=== PATIENT | female | born 1940 | race Caucasian/White ===

== ENCOUNTER → 2017-10-07 11:53 | Outpatient (CLI) | payer MEDICARE, SELFPAY ==
[2017-10-07 14:20] LABS: Color, Urine Yellow (Yellow); Glucose, Dipstick Normal (Normal); Ketone-Dipstick Negative (Negative); Leukocyte Esterase-Dipstick 25 /ul (Negative); Nitrite-Dipstick Negative (Negative); Occult Blood-Urine 10 /ul (Negative); Protein-Dipstick Negative (Negative); Urine Bilirubin Dipstick Negative (Negative); Urine Clarity Clear (Clear); Urine Urobilinogen Normal (Normal)
[2017-10-07 14:23] LABS: Hematocrit 40.7 % (37-47); Hemoglobin 14.1 g/dl (12.0-15.0); Mean Corp Hgb Conc 34.6 g/gl (32-36); Mean Corpuscular Hgb 31.6 pg (27.0-32.0); Mean Corpuscular Volume 91.3 fL (81-99); Mean Platelet Vol. 10.7 fl (6.2-12.0); Platelet Count 237 K/mm3 (150-450); RBC Distribution Width CV 12.6 % (11.6-14.6); RBC Distribution Width SD 41.1 fl (35.1-43.9); Red Blood Count 4.46 M/mm3 (4.2-5.4); White Blood Count 6.3 K/mm3 (4.4-11.0)
[2017-10-07 14:24] LABS: Scan Indicated on CBC? Y/N NO
[2017-10-07 14:32] LABS: Albumin, Serum 3.8 g/dL (3.2-5.0); BUN 17 mg/dL (7-18); BUN/Creat Ratio 20.5 RATIO (10-20); Calcium,Total 9.3 mg/dL (8.5-10.1); Chloride 103 mmol/L (98-107); Creatinine, Serum 0.83 mg/dL (0.55-1.02); EST Glomerular Filtration Rate 70 mL/min (>60); Est Glom Filt Rate - Afr Amer 85 mL/min (>60); Glucose 153 mg/dL (74-106); Potassium 4.4 mmol/L (3.5-5.1); Sodium Level 140 mmol/L (136-145)
[2017-10-07 14:46] LABS: Microalbumin,Random Urine 38.3 mg/L (NO RANGE EST.); Microalbumin:Creatinine Ratio 22.9 mg/g CRE (<30 mg/g CRE); Protein:Creat Ratio 90 mg/g CRE (0-200)
[2017-10-12 12:02] LABS: Aldosterone, Serum 2.6 ng/dL (0.0-30.0); Renin, Plasma 2.082 ng/mL/hr (0.167-5.380)
== END ==
PROVIDERS: Family Provider Internal Medicine; PCP Internal Medicine; Visit Provider Internal Medicine Nephrology
DX: I10 Essential (primary) hypertension (principal)
CPT/HCPCS: 36415; 80069; 81002; 82043; 82088; 82570; 84156; 84244; 85027

== ENCOUNTER 2020-10-28 09:30 | Outpatient (RCR) | payer MEDICARE, SELFPAY | END 2020-10-28 23:59 | LOC: IMMUN 09:30 | PROVIDERS: PCP Internal Medicine; Visit Provider Family Medicine | DX: Z23 Encounter for immunization (principal) | CPT/HCPCS: 0011A; 0012A ==

== ENCOUNTER 2021-06-23 18:56 | Observation (INO) | payer MEDICARE, SELFPAY ==
[2021-06-23] VITALS (8 sets, daily range): BP systolic 168–182; BP diastolic 59–72; PULSE 79–90; RESP 18–20; TEMP 36.3–37; O2SAT 94–98; BMI 34.4; BMI 33.5
--- NOTE | 2021-06-23 19:30 | EKG12_ITS ---
Test Reason : NEURO S/X Blood Pressure : / mmHG Vent. Rate : 082 BPM Atrial Rate : 082 BPM P-R Int : 182 ms QRS Dur : 080 ms QT Int : 400 ms P-R-T Axes : 057 -15 048 degrees QTc Int : 467 ms Normal sinus rhythm Nonspecific ST abnormality Abnormal ECG Confirmed by JANA MOJICA, ISAURO ([id number]), editorial writer MAYRA LE ([id number]) on 06/25/2021 8:57:32 AM Referred By: PL Confirmed By:ISAURO BATES MD
--- NOTE | 2021-06-23 19:30 | CT_ITS ---
We are attempting to reach an attending provider to discuss findings. An addendum with communication details will be sent when the communication is complete. STUDY: CT HEAD STROKE PROTOCOL W/O CONTRAST INJECTION REASON FOR EXAM: Female, 81 years old. Neuro deficit, acute, stroke suspected RADIATION DOSAGE (If Supplied By Facility): CTDIvol = ( ) mGy, DLP = ( 812.98 ) mGycm TECHNIQUE: Transaxial CT imaging of the brain was performed without administration of intravenous contrast material. Individualized dose optimization techniques were used for this CT. COMPARISON: No relevant priors. FINDINGS: Normal soft tissue structures. Normal calvarium. Calcification of cavernous carotids. Mild cortical atrophy and periventricular white matter ischemic changes. 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 Normal brainstem. Normal cerebellum. Empty sella deformity likely of no significance. There is no intracranial hemorrhage. There are no findings of an acute ischemic infarction. Normal visualized paranasal sinuses. CT/STROKE Brain/Head without Cont IMPRESSION: Mild atrophy and periventricular white matter ischemic changes. 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 Clinical correlation recommended MRI would be helpful for further assessment if clinically indicated Electronically Signed: Francisco Avelar MD at 19:58 EDT , Service support ,
--- NOTE | 2021-06-23 19:30 | RAD_ITS ---
STUDY: X-RAY CHEST REASON FOR EXAM: Female, 81 years old. Neuro deficit, acute, stroke suspected TECHNIQUE: AP portable COMPARISON: None. FINDINGS: Less than optimal inspiratory effort is seen in the lungs are clear. There is no demonstrated pleural abnormality. Heart is mildly enlarged although exaggerated by radiographic technique Normal mediastinum and marquez. Normal visualized pulmonary arteries. Normal visualized aortic arch and descending thoracic aorta. Normal visualized thoracic spine. Normal visualized ribs, clavicles, and shoulders. There is no demonstrated abnormality of the visualized soft tissue structures of the upper abdomen. RAD/Chest 1 View IMPRESSION: No acute cardiopulmonary pathology Electronically Signed: Francisco Avelar MD at 20:46 EDT , Service support ,
--- NOTE | 2021-06-23 19:32 | ED.VIS.STROK ---
HPI History of Present Illness Chief Complaint: Neuro S/Sx Informant: patient and family Narrative Narrative: Presents with neurologic symptoms. Her son saw her yesterday and she seemed normal. Patient does not know when the symptoms started. She does state that she has had some nausea and vomiting about 6 or 8 times today. But she has never had abdominal pain or hematemesis. This started early this morning. Last time she vomited was about 2-1/2 hours ago. She really does not have a any significant nausea now. She has noted no weakness. She has noted just some very slight dizziness or unsteadiness. She states is not spinning or vertigo. She can walk around but she just has to be careful but she does not have to hold onto anything. This is not normal for her but it was mild and she did not think anything of it. Her son came over to visit her this evening and when she opened the door he noticed that left side of her face seemed a little droopy. He also noticed that her speech seemed a little slurred although it is better now. She had not noticed any of this. Nothing makes her symptoms better or worse. She has never had stroke or dysrhythmia. [facility] Medical History Diabetes HTN (hypertension) Uterine cancer Home Medications amlodipine 10 mg PO DAILY 06/23/21 [History Last Taken Unknown] aspirin [Aspir-81] 81 mg PO DAILY 06/23/21 [History Last Taken Unknown] atorvastatin 40 mg PO DAILY 06/23/21 [History Last Taken Unknown] insulin detemir U-100 [Levemir FlexTouch U-100 Insuln] 55 unit SUBCUT DAILY 06/23/21 [History Last Taken Unknown] losartan 100 mg PO DAILY 06/23/21 [History Last Taken Unknown] metformin 1,000 mg PO TID 06/23/21 [History Last Taken Unknown] metoprolol tartrate 100 mg PO BID 06/23/21 [History Last Taken Unknown] Allergy/AdvReac Type Severity Reaction Status Date / Time Tetanus Vaccines and Toxoid Allergy Other Verified 06/23/21 18:57 Surgical History H/O total hysterectomy Social History Smoking Status: Never smoker ROS ROS ED Constitutional Constitutional ED: Denies fever(s) or subjective Eyes Eyes: Reports other Details: 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 ; Denies blurry vision, change in vision or diplopia ENT ENT ED: Denies rhinorrhea or sore throat Cardiovascular Cardiovascular: Denies chest pain or palpitations Respiratory/Chest Respiratory/Chest: Denies cough, dyspnea or sputum Gastrointestinal Gastrointestinal: Reports nausea and vomiting; Denies abdominal pain, constipation, diarrhea or melena Genitourinary Genitourinary ED: Denies hematuria Musculoskeletal Musculoskeletal: Denies arthralgias or myalgias Integumentary Denies rash Neurologic Neurologic: Reports weakness and other Details: See history of present illness. ; Denies headache(s) or paresthesias Psychiatric Psychiatric: Denies depression Endocrine Endocrinology: Denies polyuria Hematologic/Lymphatic Hematologic/Lymphatic: Denies easy bruising Allergic/Immunologic Allergic/Immunologic ED: Denies mouth swelling or urticaria EXAM Physical Exam Const Vital Signs: 06/23/21 18:57 06/23/21 19:32 06/23/21 20:03 Temperature 98.6 F Temperature Source Oral Pulse Rate 81 90 Respiratory Rate 18 18 Blood Pressure 177/72 H 180/67 H Blood Pressure Mean 107 104 Pulse Ox 98 98 95 Oxygen Delivery Method Room Air Room Air Room Air 06/23/21 21:00 06/23/21 22:00 Temperature Temperature Source Pulse Rate 79 84 Respiratory Rate 18 20 H Blood Pressure 168/59 H 182/70 H Blood Pressure Mean 95 107 Pulse Ox 95 Oxygen Delivery Method Room Air Positive well nourished and well developed General Appearance ED: well developed and NAD HEENT Reports moist mucous membranes atraumatic Nose: other Other Details: Patient does have subtle left-sided facial weakness. She can smile and close her eyes fully but there is some baseline left-sided weakness. There is some intermittent asymmetry related to her eyes but she has been blind in her right eye for a long time. Forehead does appear to be spared. Eyes Eyes Narrative: Extraocular muscles are intact. No visual field deficit to gross examination her left eye. Right eye is blind. Neck no lymphadenopathy, supple and no JVD Neck Narrative: No bruit heard. Chest Wall inspection of chest normal Resp normal respiratory effort and clear to auscultation bilaterally Auscultation: Negative for rales, rhonchi or wheezes Cardio no murmurs Rate: regular rate Rhythm: regular rhythm GI normal to inspection, nondistended, normoactive bowel sounds, soft to palpation and non-tender Back/Spine no CVA tenderness Extremity normal to inspection General Extremety ED: Negative for edema or tenderness General Extremity: Negative for edema Neuro oriented x3 and no sensory deficits noted Neuro Narrative: NIH is 1 for some subtle left-sided facial weakness. Sensorium / Orientation: alert, oriented to person, oriented to place and oriented to time Speech: speech normal Motor Exam: strength 5/5 throughout Skin Lesions: no lesions Rashes: no rashes STROKE Vital Signs/Narrative: Vital Signs Temp Pulse Resp BP Pulse Ox 06/23/21 22:00 84 20 H 182/70 H 06/23/21 21:00 79 18 168/59 H 95 06/23/21 20:03 90 18 180/67 H 95 06/23/21 19:32 98 06/23/21 18:57 98.6 F 81 18 177/72 H 98 NIHSS Initial: 1a Level of Consciousness: 0 1b LOC Questions (Score 2 if aphasic/stupor): 0 1c LOC Commands (Only score 1st attempt): 0 2 Best Gaze (If aphasic, use reflexive mvmts.): 0 3 Visual: 0 4 Facial Palsy: 1 5 Motor Arm Right (UN = amputation/fusion): 0 5 Motor Arm Left: 0 6 Motor Leg Right: 0 6 Motor Leg Left: 0 7 Limb ataxia (Only + if out of proportion): 0 8 Sensory (Aphasia/stupor=0 or 1, coma=2): 0 9 Best Language: 0 10 Dysarthria (mute, coma=2, intubated=UN): 0 11 Extinction and Inattention (only scored if +): 0 Total Score: 1 MDM MDM MDM Narrative Medical decision making narrative: Patient's blood work is overall unremarkable. CT shows some changes but they do not explain her symptoms. Her only symptoms are really left facial. 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 However, at this time her forehead appears to be spared. Because of this, she will be admitted for further work-up. MRI will be obtained. Case was discussed with hospitalist. Lab Data Attestation: I reviewed the patient's lab results. Labs: Laboratory Results - last 24 hr 06/23/21 06/23/21 06/23/21 19:16 19:16 19:16 WBC 7.6 RBC 4.31 Hgb 13.6 Hct 39.3 MCV 91.2 MCH 31.6 MCHC 34.6 RDW Std Deviation 41.3 RDW Coeff of Maribel 12.4 Plt Count 273 MPV 10.4 Immature Gran % (Auto) 0.700 Neut % (Auto) 73.7 H Lymph % (Auto) 17.3 L [place] % (Auto) 7.5 Eos % (Auto) 0.1 Baso % (Auto) 0.7 Absolute Neuts (auto) 5.6 Absolute Lymphs (auto) 1.32 Nucleated RBC % 0 PT 13.5 INR 1.1 APTT 28.2 Sodium 139 Potassium 3.6 Chloride 103 Carbon Dioxide 23.0 Anion Gap 13 BUN 18 Creatinine 0.84 Estim Creat Clear Calc 40.84 Est GFR (MDRD) Af Amer 84 Est GFR (MDRD) Non-Af 69 BUN/Creatinine Ratio 21.5 H Glucose 179 H Calcium 9.4 Troponin I High Sens 14 Radiography Diagnostic Testing: Clinical Impression(s) from Imaging Studies Brain CT 06/23/21 19:30 IMPRESSION: Mild atrophy and periventricular white matter ischemic changes. 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 Clinical correlation recommended MRI would be helpful for further assessment if clinically indicated Electronically Signed: Francisco Avelar MD at 19:58 EDT , Service support , ADDENDUM: 06/23/212011 IMPRESSION: Mild atrophy and periventricular white matter ischemic changes. 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 Clinical correlation recommended MRI would be helpful for further assessment if clinically indicated N.B. : The above Results were Read Back by Francisco Avelar MD to CONHCA Baumann MD, and understanding confirmed on 06/23/2021 20:05:45 (ET). Electronically Signed: Francisco Avelar MD at 19:58 EDT , Service support , Chest X-Ray 06/23/21 19:30 IMPRESSION: No acute cardiopulmonary pathology Electronically Signed: Francisco Avelar MD at 20:46 EDT , Service support , Discharge Plan Triage Chief Complaint: Neuro S/Sx ED Provider: Concha Hagan Dx/Rx/DC Orders Clinical Impression: Weakness on left side of face, Episodic ataxia with slurred speech Prescriptions: No Action atorvastatin 40 mg Tablet 40 mg PO DAILY RF: 0 metoprolol tartrate 100 mg Tablet 100 mg PO BID RF: 0 aspirin [Aspir-81] 81 mg Tablet,Delayed Release (Dr/Ec) 81 mg PO DAILY RF: 0 amlodipine 10 mg Tablet 10 mg PO DAILY RF: 0 metformin 1,000 mg Tablet 1,000 mg PO TID RF: 0 losartan 100 mg Tablet 100 mg PO DAILY RF: 0 Levemir FlexTouch U-100 Insuln 100 unit/mL (3 mL) Insulin Pen 55 unit SUBCUT DAILY RF: 0 Primary Care Provider: Cass Barney Referrals: Cass Barney DO [Primary Care Provider] - Disposition Disposition: Acute Care Hospital [facility]
[2021-06-23 19:46] LABS: Absolute Lymphocyte Count 1.32 X10^3/uL (0.83-4.51); Absolute Neutrophil Count 5.6 X10^3/uL (2.0-7.7); Basophil# 0.05 X10^3/uL; Basophil% 0.7 % (0-1); Eosinophil# 0.01 X10^3/uL; Eosinophils% 0.1 % (0-5); Hematocrit 39.3 % (37-47); Hemoglobin 13.6 g/dL (12.0-15.0); Lymphocyte # 1.32 X10^3/ul (0.83-4.51); Lymphocyte % 17.3 % (19-41); Mean Corp Hgb Conc 34.6 g/dL (32-36); Mean Corpuscular Hgb 31.6 pg (27.0-32.0); Mean Corpuscular Volume 91.2 fL (81-99); Mean Platelet Vol. 10.4 fl (6.2-12.0); Monocyte# 0.57 X10^3/uL; Monocyte% 7.5 % (0-10); NRBC Flagged by Analyzer 0 % (0-5); Neutrophil # 5.62 X10^3/uL (2.7-7.7); Neutrophil % 73.7 % (47-70); Platelet Count 273 K/mm3 (150-450); RBC Distribution Width CV 12.4 % (11.6-14.6); RBC Distribution Width SD 41.3 fl (35.1-43.9); Red Blood Count 4.31 M/mm3 (4.2-5.4); White Blood Count 7.6 K/mm3 (4.4-11.0)
[2021-06-23] MEDS: Ondansetron 4 MG/2 ML Vial IV (19:47)
[2021-06-23 19:52] LABS: Anion Gap 13 (5-15); BUN 18 mg/dL (7-18); BUN/Creat Ratio 21.5 RATIO (10-20); Calcium,Total 9.4 mg/dL (8.5-10.1); Chloride 103 mmol/L (98-107); Creatinine, Serum 0.84 mg/dL (0.55-1.02); EST Glomerular Filtration Rate 69 mL/min (>60); Est Glom Filt Rate - Afr Amer 84 mL/min (>60); Estimated Creatinine Clearance 40.84 ml/min; Glucose 179 mg/dL (74-106); Potassium 3.6 mmol/L (3.5-5.1); Sodium Level 139 mmol/L (136-145); Troponin-I HS 14 pg/mL (3.0-54.0)
[2021-06-23 20:09] LABS: International Normalized Ratio 1.1; Prothrombin Time (Protime)PT. 13.5 SECONDS (11.7-14.9)
[2021-06-23 20:10] LABS: Partial Thromboplast Time 28.2 Seconds (24.1-36.2)
--- NOTE | 2021-06-23 22:24 | HP.PCM_ITS ---
Documented by User: ANGEL Acevedo 06/23/21 22:39 HPI - General General Date of Admission: 06/23/21 Date of Service: 06/23/21 Chief Complaint: Facial Droop HPI Narrative AARON DARNELL, is a 81 F who presents with complaints of facial droop and feeling off balance. Patient states that she did not notice a facial droop however her son reports that when he initially got to her house he noticed a facial droop and what appeared to be some slurred speech. Patient denies history of arrhythmia or previous stroke. Patient does report a history of diabetes. Patient states that her off-balance feeling began earlier this morning Patient also reports that earlier in the day she had nausea and vomiting however she has not had any episodes of nausea or vomiting since arrival to the ER. Patient denies spinning vertigo sensation. [facility] Medical History Diabetes HTN (hypertension) Uterine cancer Home Medications amlodipine 10 mg PO DAILY 06/23/21 [History Last Taken 06/22/21 22:00] aspirin [Aspir-81] 81 mg PO DAILY 06/23/21 [History Last Taken 06/22/21 22:00] atorvastatin 40 mg PO DAILY 06/23/21 [History Last Taken 06/22/21 12:00] insulin detemir U-100 [Levemir FlexTouch U-100 Insuln] 55 unit SUBCUT DAILY 06/23/21 [History Last Taken 06/23/21 09:00] losartan 100 mg PO DAILY 06/23/21 [History Last Taken 06/22/21 12:00] metformin 1,000 mg PO TID 06/23/21 [History Last Taken 06/22/21 22:00] metoprolol tartrate 100 mg PO BID 06/23/21 [History Last Taken 06/22/21 22:00] Allergy/AdvReac Type Severity Reaction Status Date / Time Tetanus Vaccines and Toxoid Allergy Other Verified 06/23/21 18:57 Surgical History H/O total hysterectomy Social History Smoking Status: Never smoker ROS Constitutional Constitutional: Denies anorexia, chills, fatigue, malaise or weakness Cardiovascular Cardiovascular: Denies chest pain, edema, palpitations or syncope Respiratory/Chest Respiratory/Chest: Denies cough, shortness of breath at rest, shortness of breath with exertion or wheezing Gastrointestinal Gastrointestinal: Reports nausea and vomiting; Denies abdominal pain, constipation or diarrhea Genitourinary Genitourinary: Denies dysuria Musculoskeletal Musculoskeletal: Denies back pain, extremity pain, joint pain or joint stiffness Integumentary Integumentary: Denies dry skin Neurologic Neurologic: Reports lack of coordination; Denies abnormal gait, abnormal speech, confusion, dizziness, headache(s), numbness, sensory deficit or weakness Psychiatric Psychiatric: Denies anxiety or depression Endocrine Endocrinology: Denies change in body appearance Hematologic/Lymphatic Hematologic/Lymphatic: Denies anemia, easy bleeding or easy bruising Vital Signs Vital Signs Vital Signs: 06/23/21 18:57 06/23/21 19:32 06/23/21 20:03 Temperature 98.6 F Temperature Source Oral Pulse Rate 81 90 Respiratory Rate 18 18 Blood Pressure 177/72 H 180/67 H Blood Pressure Mean 107 104 Pulse Ox 98 98 95 Oxygen Delivery Method Room Air Room Air Room Air 06/23/21 21:00 06/23/21 22:00 Temperature Temperature Source Pulse Rate 79 84 Respiratory Rate 18 20 H Blood Pressure 168/59 H 182/70 H Blood Pressure Mean 95 107 Pulse Ox 95 Oxygen Delivery Method Room Air Weight Weight: 188 lb 0.869 oz Body Mass Index (BMI) 34.4 Physical Exam Const alert, oriented x3 and no apparent distress General Appearance: cooperative HEENT normocephalic and head/scalp atraumatic Eyes conjunctivae normal and no scleral icterus Eyelid: eyelids abnormal Neck supple and no JVD General: trachea midline Resp normal respiratory effort, normal air movement and clear to auscultation bilaterally Cardio regular rate, regular rhythm, S1 normal heart sound, S2 normal heart sound and peripheral pulses 2+ throughout GI normal to inspection, nondistended, normoactive bowel sounds, soft to palpation and non-tender Extremity normal capillary refill and no clubbing, cyanosis or edema General Extremity: no tenderness to palpation of joints or extremities Skin General Skin Exam: no breakdown and turgor normal Lesions: no lesions Rashes: no rashes Neuro oriented x3, moves all extremities, no focal motor deficits and no sensory deficits noted Neuro Narrative: Mild left facial droop Sensorium / Orientation: awake and alert Speech: speech normal Psych thought process normal, cooperative and affect normal Appearance: appropriate Results Lab / Micro Data Result Diagrams: 06/23/21 19:16 06/23/21 19:16 Labs: Laboratory Results - last 24 hr 06/23/21 19:16: WBC 7.6, RBC 4.31, Hgb 13.6, Hct 39.3, MCV 91.2, MCH 31.6, MCHC 34.6, RDW Std Deviation 41.3, RDW Coeff of Maribel 12.4, Plt Count 273, MPV 10.4, Immature Gran % (Auto) 0.700, Neut % (Auto) 73.7 H, Lymph % (Auto) 17.3 L, [place] % (Auto) 7.5, Eos % (Auto) 0.1, Baso % (Auto) 0.7, Absolute Neuts (auto) 5.6, Absolute Lymphs (auto) 1.32, Nucleated RBC % 0 06/23/21 19:16: PT 13.5, INR 1.1, APTT 28.2 06/23/21 19:16: Sodium 139, Potassium 3.6, Chloride 103, Carbon Dioxide 23.0, Anion Gap 13, BUN 18, Creatinine 0.84, Estim Creat Clear Calc 40.84, Est GFR (MDRD) Af Amer 84, Est GFR (MDRD) Non-Af 69, BUN/Creatinine Ratio 21.5 H, Glu cose 179 H, Calcium 9.4, Troponin I High Sens [address] 06/23/21 19:30 IMPRESSION: Mild atrophy and periventricular white matter ischemic changes. 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 Clinical correlation recommended MRI would be helpful for further assessment if clinically indicated Electronically Signed: Francisco Avelar MD at 19:58 EDT , Service support , ADDENDUM: 06/23/212011 IMPRESSION: Mild atrophy and periventricular white matter ischemic changes. 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 Clinical correlation recommended MRI would be helpful for further assessment if clinically indicated N.B. : The above Results were Read Back by Francisco Avelar MD to CONCHA Baumann MD, and understanding confirmed on 06/23/2021 20:05:45 (ET). Electronically Signed: Francisco Avelar MD at 19:58 EDT , Service support , Chest X-Ray 06/23/21 19:30 IMPRESSION: No acute cardiopulmonary pathology Electronically Signed: Francisco Avelar MD at 20:46 EDT , Service support , Assessment & Plan Assessment/Plan (1) Hemiparesis of left side of face: PLAN: 1. 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 -NIHSS and VS monitoring per stroke protocol -PT, OT, ST to eval and treat -Cardiac diet ordered per patient following dysphagia screen by nurse -Cardiac enzymes ordered -CBC, BMP, TSH, lipid panel ordered for a.m. 2. Diabetes mellitus type 2 -Will hold Metformin due to contrast given for CT -Continue subcu Lantus -AC at bedtime blood sugars with sliding scale insulin ordered 3. Hypertension -We will hold amlodipine and losartan at this time -As needed hydralazine and labetalol ordered with post stroke parameters -Vital signs per protocol 4. Hyperlipidemia -Continue atorvastatin -Lipid panel in a.m. DVT prophylaxis-subcu Lovenox This patient was seen by ANGEL Acevedo under the supervision of Dr. Curry. Documented by User: Dr. Miki Curry MD 06/24/21 06:30 HPI - General General Date of Admission: 06/23/21 [facility] Medical History Diabetes HTN (hypertension) Uterine cancer Home Medications amlodipine 10 mg PO DAILY 06/23/21 [History Last Taken 06/22/21 22:00] aspirin [Aspir-81] 81 mg PO DAILY 06/23/21 [History Last Taken 06/22/21 22:00] atorvastatin 40 mg PO DAILY 06/23/21 [History Last Taken 06/22/21 12:00] insulin detemir U-100 [Levemir FlexTouch U-100 Insuln] 55 unit SUBCUT DAILY 06/23/21 [History Last Taken 06/23/21 09:00] losartan 100 mg PO DAILY 06/23/21 [History Last Taken 06/22/21 12:00] metformin 1,000 mg PO TID 06/23/21 [History Last Taken 06/22/21 22:00] metoprolol tartrate 100 mg PO BID 06/23/21 [History Last Taken 06/22/21 22:00] Allergy/AdvReac Type Severity Reaction Status Date / Time Tetanus Vaccines and Toxoid Allergy Other Verified 06/23/21 18:57 Surgical History H/O total hysterectomy Social History Smoking Status: Never smoker Results Lab / Micro Data Result Diagrams: 06/23/21 19:16 06/23/21 19:16 Charges/Coding Addendum Addendum: seen and examined and agree with above assessment and plan
--- NOTE | 2021-06-23 22:55 | PCS.PANDOC ---
PANDEMIC DOCUMENTATION INITIATED: Date: 04/14/2021 Time: 190
[2021-06-23 23:12] LABS: Troponin-I HS 18 pg/mL (3.0-54.0)
[2021-06-24] VITALS (7 sets, daily range): BP systolic 142–185; BP diastolic 48–71; PULSE 67–91; RESP 16–18; TEMP 36.6–36.8; O2SAT 91–94; BMI 33.5
[2021-06-24 02:16] LABS: Troponin-I HS 21 pg/mL (3.0-54.0)
[2021-06-24] MEDS: Insulin Lispro 100 UNIT/ML INSULN.PEN SC ×2 (06:40→12:03)
[2021-06-24 06:46] LABS: Bedside Glucose 159 mg/dL (70-110)
[2021-06-24 07:29] LABS: Absolute Lymphocyte Count 2.02 X10^3/uL (0.83-4.51); Basophil# 0.03 X10^3/uL; Basophil% 0.4 % (0-1); Eosinophil# 0.22 X10^3/uL; Eosinophils% 3.1 % (0-5); Hematocrit 36.4 % (37-47); Hemoglobin 12.4 g/dL (12.0-15.0); Lymphocyte # 2.02 X10^3/ul (0.83-4.51); Lymphocyte % 28.6 % (19-41); Mean Corp Hgb Conc 34.1 g/dL (32-36); Mean Corpuscular Hgb 31.1 pg (27.0-32.0); Mean Corpuscular Volume 91.2 fL (81-99); Mean Platelet Vol. 10.4 fl (6.2-12.0); Monocyte# 0.79 X10^3/uL; Monocyte% 11.2 % (0-10); NRBC Flagged by Analyzer 0 % (0-5); Neutrophil # 3.99 X10^3/uL (2.7-7.7); Neutrophil % 56.4 % (47-70); Platelet Count 238 K/mm3 (150-450); RBC Distribution Width CV 12.6 % (11.6-14.6); RBC Distribution Width SD 41.7 fl (35.1-43.9); Red Blood Count 3.99 M/mm3 (4.2-5.4); White Blood Count 7.1 K/mm3 (4.4-11.0)
[2021-06-24 08:17] LABS: Anion Gap 10 (5-15); BUN 14 mg/dL (7-18); BUN/Creat Ratio 21.4 RATIO (10-20); Calcium,Total 9.2 mg/dL (8.5-10.1); Chloride 104 mmol/L (98-107); Cholesterol 109 mg/dL (200); Creatinine, Serum 0.66 mg/dL (0.55-1.02); EST Glomerular Filtration Rate 92 mL/min (>60); Est Glom Filt Rate - Afr Amer 111 mL/min (>60); Glucose 156 mg/dL (74-106); High Density Lipoprotein 39 mg/dL; Potassium 3.2 mmol/L (3.5-5.1); Sodium Level 141 mmol/L (136-145); Thyroid Stim Hormone (TSH) 1.68 uIU/mL (0.358-3.74); Triglycerides 114 mg/dL; Very Low Density Lipoprotein 23 mg/dL (5-40)
[2021-06-24] MEDS: LORazepam 1 MG Tablet PO (08:52)
--- NOTE | 2021-06-24 09:30 | MRI_ITS ---
STUDY: MRA OF THE HEAD WITHOUT CONTRAST REASON FOR EXAM: Female, 81 years old. cva -- cva. cva -- cva TECHNIQUE: 3-D wiep-ds-yddish (TOF) imaging was performed with MIPs. The study was performed unenhanced. COMPARISON: None. FINDINGS: Patent right cavernous carotid artery. Patent left cavernous carotid artery. Patent right A1 segments of the anterior cerebral artery. Patent left A1 segments of the anterior cerebral artery. Unremarkable anterior communicating artery (ACOM) region. Normal bilateral A2 segments of the anterior cerebral arteries. Patent right M1 and M2 segments of the middle cerebral arteries, with a unremarkable M1 bifurcation. Patent left M1 and M2 segments of the middle cerebral arteries, with a unremarkable M1 bifurcation. There is non-visualization of the right posterior communicating artery (PCOM). There is non-visualization of the left posterior communicating artery (PCOM). Patent basilar artery with a normal basilar bifurcation. Patent bilateral posterior cerebral arteries. MRI/MRA Head ONLY without Contrast IMPRESSION: No large vessel occlusion. Electronically Signed: Umer Hernandez MD at 11:24 EDT Tel , Service support ,
--- NOTE | 2021-06-24 09:30 | MRI_ITS ---
We are attempting to reach an attending provider to discuss findings. An addendum with communication details will be sent when the communication is complete. STUDY: MRI BRAIN WITHOUT CONTRAST REASON FOR EXAM: Female, 81 years old. cva TECHNIQUE: Standardized multiplanar fat and water weighted pulse sequences were obtained. COMPARISON: 06/23/2021 CT of the head FINDINGS: There is mild cerebral atrophy with widening of the extra-axial spaces and ventricular dilatation. There are multiple white matter hyperintensities, distributed throughout the deep white matter tracts of the cerebral hemispheres, consistent with mild chronic white matter ischemic changes. There is approximately 5 mm restricted diffusion of the left pontine brachium (axial image #7 series 4). There is drop of signal on ADC map, consistent with acute infarction. Additionally there is approximately 1 cm restricted diffusion of the left caudate head, consistent with acute infarction as well. There is no extra-axial fluid accumulation. Normal sella turcica, pituitary gland, infundibular stalk, optic chiasm and hypothalamus. Normal tectal plate and pineal gland. MRI/Brain without Contrast IMPRESSION: Acute small infarctions of the left caudate and left brachium pontis. Consider multifocal etiology. Electronically Signed: Umer Hernandez MD at 11:22 EDT Tel , Service support ,
--- NOTE | 2021-06-24 09:30 | MRI_ITS ---
STUDY: MRA NECK WITH AND WITHOUT CONTRAST REASON FOR EXAM: Female, 81 years old. cva TECHNIQUE: 3-D [id number]-[id number]-bhltyv (TOF) imaging was performed in an 1.5 T MRI scanner. 17ML dOTAREM VIA IV was administered for the contrast enhanced images. COMPARISON: None. FINDINGS: RIGHT CAROTID ARTERIES: Antegrade flow within the right common carotid artery (CCA). Antegrade flow within the right carotid bulb. Antegrade flow within the right internal carotid (ICA) artery. Antegrade flow within the visualized cervical portion of the right internal carotid artery. LEFT CAROTID ARTERIES: Antegrade flow within the left common carotid artery (CCA). Antegrade flow within the left common carotid bulb. Antegrade flow within the origin of the left internal carotid (ICA) artery. Antegrade flow within the visualized cervical portion of the left internal carotid artery. VERTEBRAL ARTERIES: Antegrade flow within the bilateral vertebral artery. MRI/MRA Neck WITH and W/O Contrast IMPRESSION: No demonstrated occlusion Electronically Signed: Umer Hernandez MD at 11:26 EDT Tel , Service support ,
--- NOTE | 2021-06-24 11:51 | ECHOD_ITS ---
Reason For Study: TIA/CVA Procedure This was a 2D Doppler, Color Flow transthoracic echocardiogram. Bubble study performed. The exam was of adequate technical quality. Exam performed portable in patient room. Left Ventricle Normal LV size. Left ventricular systolic function is normal. The estimated ejection fraction is 60 %. No regional wall motion abnormalities noted. Right Ventricle Normal RV size. Normal systolic function. Atria The left atrium is mildly enlarged. Normal right atrium. No doppler evidence for ASD. Bubble contrast study negative for right to left interatrial shunt. Mitral Valve There is moderate mitral annular calcification. Extension of the mitral annular calcification onto the base of the posterior mitral valve leaflet. The mitral valve chordae are thickened and/or calcified. Moderate (2+) mitral valve insufficiency. Tricuspid Valve Normal tricuspid valve. Trivial tricuspid valve insufficiency. Right ventricular systolic pressure estimated to be 39 mmHg. Aortic Valve Trisinus/trileaflet aortic valve. Normal aortic valve. Pulmonic Valve The pulmonic valve is not well visualized. Trivial pulmonic valve insufficiency. Great Vessels The aortic root is not well visualized. Pericardium/Pleural No pericardial effusion. Medication Performed a rapid injection of agitated mix of 9 cc saline and 1cc air to assess for atrial septal defect. MMode/2D Measurements & Calculations LVIDd: 4.5 cm IVSd: 1.7 cm LA dimension: 4.8 cm LVIDs: 2.5 cm LVPWd: 1.0 cm FS: 44.9 % LAV(MOD-bp): 69.2 ml LA A4 area: 21.6 cm2 RA A4 area: 17.5 cm2 LAV(MOD-bp) Indexed: 37.6 ml/m2 LAV(MOD-sp2): 63.6 ml LAV(MOD-sp4): 66.4 ml Time Measurements MV dec time: 0.22 sec Doppler Measurements & Calculations MV E max kumar: 143.4 cm/sec Lat Peak E' Kumar: 4.8 cm/sec Med Peak E' Kumar: 5.5 cm/sec MV A max kumar: 131.0 cm/sec E/E' lat: 29.6 E/E' med: 26.1 MV E/A: 1.1 MV V2 max: 148.3 cm/sec MV P1/2t max kumar: 146.4 cm/sec Ao V2 max: 159.0 cm/sec MV max P.8 mmHg MV P1/2t: 65.5 msec Ao max P.1 mmHg MV V2 mean: 86.5 cm/sec MV dec slope: 654.4 cm/sec2 MV mean P.6 mmHg MV V2 VTI: 49.6 cm MVA(P1/2t): 3.4 cm2 LV V1 max: 88.1 cm/sec PA V2 max: 87.6 cm/sec TR max kumar: 301.9 cm/sec LV V1 max P.1 mmHg TR max P.4 mmHg ECHO/Echo Complete Interpretation Summary Left ventricular systolic function is normal. The estimated ejection fraction is 60 %. The left atrium is mildly enlarged. There is moderate mitral annular calcification. Extension of the mitral annular calcification onto the base of the posterior mi tral valve leaflet. The mitral valve chordae are thickened and/or calcified. Moderate (2+) mitral valve insufficiency. Trivial tricuspid valve insufficiency. Trivial pulmonic valve insufficiency. Right ventricular systolic pressure estimated to be 39 mmHg. Transmitral diastolic flow velocities suggest diastolic dysfunction (pseudonorm al pattern). Bubble contrast study negative for right to left interatrial shunt. Ordering Physician: Vianey Del Rio Referring Physician: Cass Barney M.D. Performed By: Wilfrid Villeda RCS
--- NOTE | 2021-06-24 11:52 | TELEMED_ITS ---
[facility] Telemed has confirmed receipt of a request for visit. This document confirms receipt of the order initiating the consult. To find the results of the consultation, please view the patient's reports for the scanned Telemed Consult.
[2021-06-24] MEDS: Metoprolol Tartrate 100 MG Tablet PO (11:55)
[2021-06-24] MEDS: Aspirin E.C. 81 MG Tablet PO (11:56)
[2021-06-24] MEDS: Enoxaparin 40 MG/0.4 ML Syringe SC (11:56)
[2021-06-24] MEDS: Potassium Chloride Oral Tablet 20 MEQ 40 MEQ PO (12:00)
--- NOTE | 2021-06-24 12:58 | PCM.DC.SUM ---
Documented by User: Vianey Del Rio NP, AUDIOMETRIC TECHNICIAN-C 06/24/21 13:28 Providers Date of Admission: 06/23/21 Date of Discharge: 06/24/21 Primary Care Physician: Dr. Cass Barney DO Reason For Visit: TIA Diagnosis Discharge Diagnosis (1) Hemiparesis of left side of face: Status: Acute Code(s): G81.94 - Hemiplegia, unspecified affecting left nondominant side Medications at Discharge Home Medications Levemir FlexTouch U-100 Insuln 55 unit SUBCUT DAILY 06/23/21 amlodipine 10 mg PO DAILY 06/23/21 aspirin 81 mg PO DAILY 06/23/21 atorvastatin 40 mg PO DAILY 06/23/21 losartan 100 mg PO DAILY 06/23/21 metformin 1,000 mg PO TID 06/23/21 metoprolol tartrate 100 mg PO BID 06/23/21 clopidogrel [Plavix] 75 mg PO DAILY #30 tab 06/24/21 Hospital Course Operations None Procedures 2-D Echocardiogram Summary of Care Provided Minutes Spent on Discharge: 35 Hospital Course: Patient is an 81-year-old female admitted 06/23/2021 due to facial droop. 1. Acute CVA-MRI of brain shows acute small infarctions of the left caudate and left brachium pontis. MRA of neck with no occlusion. MRA of head with no large vessel occlusion. Echocardiogram pending and will be reviewed prior to discharge. [facility] neurology consulted. On aspirin at baseline, add Plavix. Continue statin. 30-day event monitor at discharge. Follow-up with PCP and neurology at discharge. 2. Type 2 diabetes mellitus-continue home oral and insulin regimen. 3. Hypertension-continue amlodipine, losartan, metoprolol. 4. Hyperlipidemia-continue statin. Patient seen and examined prior to discharge. Physical assessment as noted below. Patient is stable for discharge with follow up recommendations as noted above. This patient was seen by ANGEL Bell under the supervision of Dr. Leary. Physical Exam Const alert, oriented x3 and no apparent distress Orientation / Consciousness: awake, oriented to person, oriented to place and oriented to time HEENT normocephalic and moist oral mucous membranes Eyes PERRL, EOMs intact bilaterally and conjunctivae normal Neck no lymphadenopathy Resp normal respiratory effort and clear to auscultation bilaterally Cardio regular rate, regular rhythm and no murmurs Peripheral Pulses: pulses 2+ throughout GI normal to inspection, nondistended, normoactive bowel sounds, non-tender and non-distended Extremity normal to inspection Skin no rashes or lesions noted Lesions: no lesions Rashes: no rashes Trauma: no lacerations or abrasions Neuro CN's II-XII intact bilaterally, no focal motor deficits, no sensory deficits noted and deep tendon reflexes 2+ bilaterally Neuro Narrative: Left facial hemiparesis Psych mental status grossly normal and affect normal Weight / BMI Weight Weight: 183 lb 10.321 oz Body Mass Index (BMI) 33.5 ABG / Lab / Microbiology Data Result Diagrams: 06/24/21 06:26 06/24/21 06:26 Laboratory: Laboratory Results - last 24 hr 06/23/21 19:16: WBC 7.6, RBC 4.31, Hgb 13.6, Hct 39.3, MCV 91.2, MCH 31.6, MCHC 34.6, RDW Std Deviation 41.3, RDW Coeff of Maribel 12.4, Plt Count 273, MPV 10.4, Immature Gran % (Auto) 0.700, Neut % (Auto) 73.7 H, Lymph % (Auto) 17.3 L, Talbot % (Auto) 7.5, Eos % (Auto) 0.1, Baso % (Auto) 0.7, Absolute Neuts (auto) 5.6, Absolute Lymphs (auto) 1.32, Nucleated RBC % 0 06/23/21 19:16: PT 13.5, INR 1.1, APTT 28.2 06/23/21 19:16: Sodium 139, Potassium 3.6, Chloride 103, Carbon Dioxide 23.0, Anion Gap 13, BUN 18, Creatinine 0.84, Estim Creat Clear Calc 40.84, Est GFR (MDRD) Af Amer 84, Est GFR (MDRD) Non-Af 69, BUN/Creatinine Ratio 21.5 H, Glucose 179 H, Calcium 9.4, Troponin I High Sens 14 06/23/21 22:36: Troponin I High Sens 18 06/24/21 01:43: Troponin I High Sens 21 06/24/21 06:26: WBC 7.1, RBC 3.99 L, Hgb 12.4, Hct 36.4 L, MCV 91.2, MCH 31.1, MCHC 34.1, RDW Std Deviation 41.7, RDW Coeff of Maribel 12.6, Plt Count 238, MPV 10.4, Immature Gran % (Auto) 0.300, Neut % (Auto) 56.4, Lymph % (Auto) 28.6, Talbot % (Auto) 11.2 H, Eos % (Auto) 3.1, Baso % (Auto) 0.4, Absolute Neuts (auto) 4.0, Absolute Lymphs (auto) 2.02, Nucleated RBC % 0 06/24/21 06:26: Sodium 141, Potassium 3.2 L, Chloride 104, Carbon Dioxide 27.0, Anion Gap 10, BUN 14, Creatinine 0.66, Estim Creat Clear Calc 34.30, Est GFR (MDRD) Af Amer 111, Est GFR (MDRD) Non-Af 92, BUN/Creatinine Ratio 21.4 H, Glucose 156 H, Calcium 9.2, Triglycerides 114, Cholesterol 109, LDL Cholesterol 47, VLDL Cholesterol 23, HDL Cholesterol 39 L, TSH 1.68 06/24/21 06:39: POC Glucose 159 H Radiography Diagnostic Testing: Radiology Impression Brain CT 06/23/21 19:30 IMPRESSION: Mild atrophy and periventricular white matter ischemic changes. 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 Clinical correlation recommended MRI would be helpful for further assessment if clinically indicated Electronically Signed: Francisco Avelar MD at 19:58 EDT , Service support , ADDENDUM: 06/23/212011 IMPRESSION: Mild atrophy and periventricular white matter ischemic changes. 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 Clinical correlation recommended MRI would be helpful for further assessment if clinically indicated N.B. : The above Results were Read Back by Francisco Avelar MD to CONCHA Baumann MD, and understanding confirmed on 06/23/2021 20:05:45 (ET). Electronically Signed: Francisco Avelar MD at 19:58 EDT , Service support , Chest X-Ray 06/23/21 19:30 IMPRESSION: No acute cardiopulmonary pathology Electronically Signed: Francisco Avelar MD at 20:46 EDT , Service support , Brain MRI 06/24/21 09:30 IMPRESSION: Acute small infarctions of the left caudate and left brachium pontis. Consider multifocal etiology. Electronically Signed: Umer Hernandez MD at 11:22 EDT Tel , Service support , ADDENDUM: 06/24/21 1146 IMPRESSION: Acute small infarctions of the left caudate and left brachium pontis. Consider multifocal etiology. N.B. : The above Results were Read Back by Umer Hernandez MD to Dr. Sapphire MD, and understanding confirmed on 06/24/2021 11:39:17 (ET). Electronically Signed: Umer Hernandez MD at 11:22 EDT Tel , Service support , Head MRA 06/24/21 09:30 IMPRESSION: No large vessel occlusion. Electronically Signed: Umer Hernandez MD at 11:24 EDT Tel , Service support , Neck MRA 06/24/21 09:30 IMPRESSION: No demonstrated occlusion Electronically Signed: Umer Hernandez MD at 11:26 EDT Tel , Service support , Meaningful Use Info Meaningful Use Diagnoses (Choose all that apply): Ischemic CVA CVA Therapy Assessed for PT,OT and/or ST?: Yes Ischemic Stroke Antithrombotic order at d/c?: Yes Dx of Atrial fib/flutter?: No Statins at discharge?: Yes Primary Dx Acute Ischemic CVA?: Yes IV tPA ordered during stay?: No Reason IV t-PA not ordered: Medical Contraindication Discharge Plan Admission Admit Date/Time: 06/23/21 22:14 Primary Reason for Your Visit: Stroke Attending Provider: Rene Leary Primary Care Provider: Cass Barney Discharge Orders/Prescriptions Prescriptions: New clopidogrel [Plavix] 75 mg tablet 75 mg PO DAILY Qty: 30 RF: 0 Continued atorvastatin 40 mg Tablet 40 mg PO DAILY RF: 0 metoprolol tartrate 100 mg Tablet 100 mg PO BID RF: 0 aspirin 81 mg Tablet,Delayed Release (Dr/Ec) 81 mg PO DAILY RF: 0 amlodipine 10 mg Tablet 10 mg PO DAILY RF: 0 metformin 1,000 mg Tablet 1,000 mg PO TID RF: 0 losartan 100 mg Tablet 100 mg PO DAILY RF: 0 Levemir FlexTouch U-100 Insuln 100 unit/mL (3 mL) Insulin Pen 55 unit SUBCUT DAILY RF: 0 Other Ambulatory Orders: 30-Day Event Recorder (Routine) Location: None Selected Ordered By: Vianey Del Rio NP Referrals / Follow Up: Cass Barney DO [Primary Care Provider] - In 1 Week Elvin Aburto MD [STAFF PHYSICIAN] - Within 2 Weeks Disposition Disposition (needs filled in before D/C Order can be placed): Home, Self Care Documented by User: Dr. Rene Leary MD 06/24/21 18:20 Providers Date of Admission: 06/23/21 Reason For Visit: TIA Medications at Discharge Home Medications Levemir FlexTouch U-100 Insuln 55 unit SUBCUT DAILY 06/23/21 amlodipine 10 mg PO DAILY 06/23/21 aspirin 81 mg PO DAILY 06/23/21 atorvastatin 40 mg PO DAILY 06/23/21 losartan 100 mg PO DAILY 06/23/21 metformin 1,000 mg PO TID 06/23/21 metoprolol tartrate 100 mg PO BID 06/23/21 clopidogrel [Plavix] 75 mg PO DAILY #30 tab 06/24/21 ABG / Lab / Microbiology Data Result Diagrams: 06/24/21 06:26 06/24/21 06:26 Discharge Plan Admission Admit Date/Time: 06/23/21 22:14 Primary Reason for Your Visit: Stroke Attending Provider: Rene Leary Primary Care Provider: Cass Barney Discharge Orders/Prescriptions Prescriptions: New clopidogrel [Plavix] 75 mg tablet 75 mg PO DAILY Qty: 30 RF: 0 Continued atorvastatin 40 mg Tablet 40 mg PO DAILY RF: 0 metoprolol tartrate 100 mg Tablet 100 mg PO BID RF: 0 aspirin 81 mg Tablet,Delayed Release (Dr/Ec) 81 mg PO DAILY RF: 0 amlodipine 10 mg Tablet 10 mg PO DAILY RF: 0 metformin 1,000 mg Tablet 1,000 mg PO TID RF: 0 losartan 100 mg Tablet 100 mg PO DAILY RF: 0 Levemir FlexTouch U-100 Insuln 100 unit/mL (3 mL) Insulin Pen 55 unit SUBCUT DAILY RF: 0 Other Ambulatory Orders: 30-Day Event Recorder (Routine) Location: None Selected Ordered By: Vianey Del Rio NP Referrals / Follow Up: Cass Barney DO [Primary Care Provider] - In 1 Week Elvin Aburto MD [STAFF PHYSICIAN] - Within 2 Weeks Disposition Disposition (needs filled in before D/C Order can be placed): Home, Self Care Charges/Coding Addendum Addendum: Dr. Leary: I personally reviewed the chart and examined the patient, and agree with the above findings. 81-year-old female presented to the hospital with dizziness as well as a left facial droop that was noticed by her son. She continues to have a left facial droop this is the dizziness and the nausea and vomiting have resolved. She had an MRI which demonstrated small acute infarctions of the left caudate and left brachium pontis. MRA of the neck did not show any occlusion in the MRA of the head was unremarkable. She is already on aspirin and therefore we will add Plavix. We will also continue her statin. Had her evaluated by [facility] neurology no further recommendations. Given the multiple strokes also put her on a 30-day event monitor to monitor for A. fib and have her follow-up with neurology as an outpatient. I discussed the plan for discharge today with both the patient and her son both of whom expressed understanding of the risk and benefits of going home and are okay with going home today. Visit Charges OBSV E&M: 20091 Observation care discharge
--- NOTE | 2021-06-24 13:24 | CASEMGMT ---
SW completed a PHQ 9 with patient as she had a Stroke. She scored a 0 which indicates no Depression. She denies any need for counseling resources. Ruba PASTRANA
[2021-06-24 13:25] LABS: Hemoglobin A1c 6.6 % (3.8-5.6)
--- NOTE | 2021-06-24 13:28 | PCM.DC ---
Discharge Instructions Diet Discharge Diet: Low fat / Low cholesterol and Carb Control Diet Activity Discharge Activity: Return to Normal Activity Dressing / Incision Call your doctor if you observe: Shortness of breath, Dizziness and Chest pain Follow Up Care Test Results: Test results from this visit will be discussed in further detail at your follow-up appointment, if applicable. Discharge Plan Admission Admit Date/Time: 06/23/21 22:14 Primary Reason for Your Visit: Stroke Attending Provider: Rene Leary Primary Care Provider: Cass Barney Discharge Orders/Prescriptions Prescriptions: New clopidogrel [Plavix] 75 mg tablet 75 mg PO DAILY Qty: 30 RF: 0 Continued atorvastatin 40 mg Tablet 40 mg PO DAILY RF: 0 metoprolol tartrate 100 mg Tablet 100 mg PO BID RF: 0 aspirin 81 mg Tablet,Delayed Release (Dr/Ec) 81 mg PO DAILY RF: 0 amlodipine 10 mg Tablet 10 mg PO DAILY RF: 0 metformin 1,000 mg Tablet 1,000 mg PO TID RF: 0 losartan 100 mg Tablet 100 mg PO DAILY RF: 0 Levemir FlexTouch U-100 Insuln 100 unit/mL (3 mL) Insulin Pen 55 unit SUBCUT DAILY RF: 0 Other Ambulatory Orders: 30-Day Event Recorder (Routine) Location: None Selected Ordered By: Vianey Del Rio NP Referrals / Follow Up: Cass Barney DO [Primary Care Provider] - In 1 Week Elvin Aburto MD [STAFF PHYSICIAN] - Within 2 Weeks Disposition Disposition (needs filled in before D/C Order can be placed): Home, Self Care
[2021-06-24 13:36] LABS: Bedside Glucose 172 mg/dL (70-110)
--- NOTE | 2021-06-24 15:12 | CASEMGMT ---
Addendum entered by Bouchra Amin 06/24/21 16:06: Speech also recommending further speech therapy and this was added to [facility] order and re-faxed. Pt/son updated as well, voice understanding. Call to [facility] to have them discard 1st order faxed and to use second order faxed, Bina voices understanding. Sabino SMITH CM Original Note: Therapy is recommending OP therapy and pt is agreeable to OP therapy at [facility] as she is active there with silver sneakers. Order faxed to [facility] and pt given original. Pt voices no further questions/concerns/needs. Sabino SMITH CM
--- NOTE | 2021-06-24 15:16 | NURSING ---
soc consult completed. pt's son in room with this rn.
== END 2021-06-24 13:09 | disposition home or self-care (01) ==
LOC: ED 22:26 → PCU 22:35
PROVIDERS: Nurse Practitioner Family; Admitting Provider Family Medicine; Emergency Provider Emergency Medicine; PCP Internal Medicine; Visit Provider Family Medicine
DX: I63.9 Cerebral infarction, unspecified (principal); G81.94 Hemiplegia, unspecified affecting left nondominant side; E11.9 Type 2 diabetes mellitus without complications; I08.1 Rheumatic disorders of both mitral and tricuspid valves; R47.81 Slurred speech; I10 Essential (primary) hypertension; H54.61 Unqualified visual loss, right eye, normal vision left eye; R27.0 Ataxia, unspecified; R29.810 Facial weakness; R29.701 NIHSS score 1; E78.5 Hyperlipidemia, unspecified; Z79.899 Other long term (current) drug therapy; Z79.4 Long term (current) use of insulin; Z79.82 Long term (current) use of aspirin
CPT/HCPCS: 36415; 70450; 70544; 70549; 70551; 71045; 80048; 80061; 82962; 83036; 84443; 84484; 85025; 85610; 85730; 92523; 92610; 93005; 93306; 94762; 96372; 96374; 97162; 97166; 99218; 99285; A9575; J7040; A4216; G0378; J2405

== ENCOUNTER 2021-06-30 13:30 | Outpatient (RCR) | payer MEDICARE, SELFPAY ==
--- NOTE | 2021-06-30 13:18 | HP.PTEVAL ---
Patient's Visit Information AARON DARNELL is a 81 year old F referred to Physical Therapy by Dr. Rene Leary MD with a diagnosis of CVA. Date of Evaluation: 06/30/21 Physical Therapist: Lisseth Donahue DPT - Visit Plan Frequency: 1x/Week Duration: 1 Week Plan: Pt is at baseline and doing great, does not require PT at this time. - Subjective Patient reports that a week ago today she had a light stroke- stayed in [facility] overnight and now she is here. They just wanted her to get checked out. She feels that she is back to 95% of normal- but every day she feels more normal. She does have DM and does feel weakness when her blood sugar is low. No pain. She has not noticed any loss of balance or decreased endurance. She plays a lot of cards- does not like to exercise. She plays cards 4x a week. She drove today and didn't have any problems getting in/out of the car and into [employer]. No concerns for her mobility or balance. Is unsure if needs PT just wants an assessment. Lives alone- does not have any stairs inside but has a single step in the garage and has a grab bar. No grab bars in the bathroom- but her friend suggested one. Is fully I with bathing- able to get in/out of the tub without an issue. She has two showers but prefers a bath. Does have higher toilet seat- no problems getting on/off. No problems sleeping. Does not use an AD and does not have them. PMHx/Meds: [facility] put her on blood thinners and a regular asprin- all others stuff is the same. - Objective Posture: FH, RS- can correct with verbal cues. Gait: no deviation noted- no AD required. Stairs: asc/desc 8 recip with 1 HR good technique. HR/TR: able with UE A for balance. Balance: see FGA. ROM: WFL. Strength: Core: fair plus, Hip: 4+/5, Knee: 5/5, Ankle: 5/5. Flex: HS: moderate, Gastroc: moderate - Balance/Special Test Scores Functional Gait Assessment Score: 26 % Disability: 13.3400 Lower Extremity Functional Score: 60 TUG Test Time Seconds: 10 30 Second Chair Rise Test Seconds: 14 6 Minute Walk Test: 320.95 - Rehabilitation Potential Physical Therapy Diagnosis: Patient presents with functional mobility and balance in a normal range and does not require PT services at this time. Rehabilitation Potential: Good - Anticipated Interventions Thank you for the opportunity to evaluate your patient. For Medicare and Medicare HMO plans, please review the plan of care and approve it. It will need to be FAXED BACK to us at [phone] for Medicare purposes. For Medicare only, by signing this I certify the plan of care. Please let me know if there are questions or concerns regarding this plan of care. Physician Signature: Date:
--- NOTE | 2021-06-30 13:37 | HP.OTEVAL ---
Patient's Visit Information AARON DARNELL is a 81 year old F, referred to Occupational Therapy by Dr. Rene Leary MD, with a diagnosis of CVA. Date of Evaluation: 06/30/21 Occupational Therapist: Anabelle Mahoney, OTR/L, CHT - Subjective This 81 year old female was seen for OT eval with dx of CVA- pt stats on 2020 she wasn't feeling good and vomiting- pt son brought her soup and noticed a facial droop he called the squat. pt went to ER and d/c from hospital 06/24/21. Pt states her son does check on her daily. pt feels her symptoms have resolved. Pt very active playing cards and going to the [employer]. pt also eats out with sister daily. pt feels she has returned to her active lifestyle at her PLOF. - ADLs Comments: pt states she has a cleaning girl-. she does not cook- pt eats out with her sister. lives alone in one story home. drives local. ambulates without devices. states she sit in bathtub and does bathing at IND. level. Dresses at IND. level. Plays bingo and cards and goes to [employer] - ROM ROM Comments: pt demo BUE ROM WNL - Strength Shoulder: right 4+/5 left 4+/5 Elbow: right 4+/5 left 4+/5 Personal Financial Planner: right 35# left 40# Lateral Pinch: right 10# left 10# Tripod Pinch: right 4# left 4# - Sensation Sensation Comments: denies states at times depending on her DM - Quick DASH-Disab of Arm,Shoulder& Hand Quick DASH Score: 11.3625 - Rehabilitation General Assessment: pt reports she her symptoms have resolved and is performing her ADLs and IADLs at her PLOF. pt demo full BUE ROM WFL, and good strength to perform her ADLs at a IND. level. pt does not demo a need for skilled OT services at this time. - Anticipated Interventions Other Other Interventions: pt does not demo need for skilled OT services at this time- - Visit Plan TEXT: Thank you for the opportunity to evaluate your patient. For Medicare and Medicare HMO plans, please review the plan of care and approve it. It will need to be FAXED BACK to us at [phone] for Medicare purposes. Please let me know if there are questions or concerns regarding this plan of care. Physician Signature: Date:
--- NOTE | 2021-06-30 16:53 | HP.SP.AD ---
History - History Date of Eval: 06/30/21 Medical Diagnosis (from RX): Acute CVA Date of Onset of Diagnosis: 06/23/21 Previous speech therapy: Yes Results: On 06/24/21, Pt was evaluated on the progressive care unit at [facility]. Per speech therapy evaluation: patient lives alone, continues to drive during the daytime and manages her own medications and finances independently. Informal cognitive-linguistic evaluation - Fully oriented. L facial droop w/ mild dysarthria. No evidence of apraxia or aphasia in conversation. Recall - able to repeat back 08/15 and 04/16 details from 2 short stories immediately after hearing. Denies changes in vision - inconsistency in reading at the sentence level w/ omissions initially noted but able to correct when prompted. Demonstrated sufficient comprehension at the sentence level. 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 Poor self-awareness of inaccuracies. Pt manages own finances - son present for evaluation and states that he is surprised by her current performance. Recommend family supervision/assist w/ finances upon discharge as needed. Pt being discharged from [facility] at this time. Due to brevity of ST services received w/ this admission, recommend outpatient speech therapy for additional evaluation and treatment of cognitive-linguistic function/swallow function (dyscalculia, dysarthria, facial asymmetry, L buccal pocketing w/ intake) as this patient lives alone, drives during the daytime and manages her own medications/finances independently. Other Relevant Medical History/Diagnoses/Surgery: AARON DARNELL, is a 81 F who presented to [facility] ED on 06/23/21 w/ c/o facial droop and feeling off balance. Patient states that she did not notice a facial droop however her son reports that when he initially got to her house he noticed a facial droop and what appeared to be some slurred speech. Pt also reported nausea and vomiting earlier in the day prior to admission. Denies spinning vertigo sensation. PMHx: Diabetes, HTN (hypertension), Uterine cancer. 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 Consider multifocal etiology. Medications related to this diagnosis: Pt on same medications prior to CVA w/addition of blood thinner and regular aspirin. 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 L facial droop considered very mild w/Pt reporting significant improvement since initial onset. Off-target groping, uncoordinated movements or signs of weakness were not noted. Appreciated structural and functional integrity of the lips and tongue. The integrity of the teeth and dental arches were intact with normal occlusal relationships. BILINGUAL PATIENT SUPPORT CASEWORKER provided Pt w/examples of oral motor exercises to complete as a home exercise program to improve mild L labial droop including lip protrusion w/retraction, isolated L labial retraction, and lateralization of labial protrusion. - Respiratory Status Respiratory Status: Room Air Objective Cog/Ling/Com - Test Administered Wibvpgwtr-Vrewwkvoge-Fumdaityrqtar Assessment Administered: Yes Cpcluhimk-Rfpmsjdlmy-Dnfcsnokfqdyo Assessment: Cognitive ? Linguistic skills were evaluated using patient/family interview, skilled observation and informal evaluation through tasks completed by the patient. - Answer Yes/No Questions Simple: WFL - Conversational Tasks Conversational Tasks: WFL Comments: Pt participated in basic and complex conversation w/BILINGUAL PATIENT SUPPORT CASEWORKER. Pt receptive and expressive language skills presenting WFL via no evidence of word finding deficits, answering all questions, no evidence of dysarthria or apraxia, and following directions during CLQT. - Medication Correctly stating instructions of medications: WFL - Numerical Skills Counting Money: Pt completed counting pictures of money w/83% acc independently and benefited from supervision to self-correct error to improve acc to 100%. Pt reporting having baseline difficulties w/determining the difference between quarters and nickels. Telling Time: Pt completed basic time telling task via reading analog clock and writing time w/100% acc independently. Pt often writing 5 til 8 instead of 7:55 however Pt given full credit for these responses as this is how she would say the time if talking to someone. Balancing Checkbook [place]: Pt completed organizing check register and determining ending value w/88% acc independently via completing math calculations by hand and benefited from supervision to self-correct math error and improve acc to 100%. Pt completed planning, organizing, and sequencing task via writing two checks w/100% acc independently via writing the date, numerical amount, encoding the numerical value, and signing the check. CLQT - CLQT CLQT Administered: Yes CLQT: Cognitive Linguistic Quick Test (CLQT) is a criterion - referenced assessment designed for adults between the ages of 18 and 89 with known or suspected neurological dysfuntions. The CLQT is to assess strength and weaknesses in five cognitive domains. Severity ratings are within normal limits, mild, moderate, severe deficits. The subtests are as follows: Date: 06/30/21 - Attention Attention: WNL - Memory Memory: WNL - Executive Functions Executive Functions: WNL - Language Language: WNL - Visuospatial Skills Visuospatial Skills: WNL - Composite Severity Rating Composite Severity Rating: WNL - Clock Drawing Severity Rating Clock Drawing Severity Rating: Moderate - CLQT Comments Domain Scores Domain Scores: Attention = 207/215 (WNL); Memory = 164/185 (WNL); Executive Functioning = 35/40 (WNL); Language = 31/37 (WNL); Visuospatial Skills = 103/105 (WNL); Clock Drawing = 7/13 (MODERATE). This patient demonstrated functioning WNL for her age group in all domain areas. Pt's only area of weakness was the clock drawing where Pt did not place numbers inside the match-e-be-nash[employer]she-wish band, used only 3/12 numbers w/hash núñez for remaining 9 numbers, no use of hands until cued by clinician, and hands were the same length however Pt able to label which was the short and long hand. Pt completed other functional executive functioning tasks such as completing a checkbook, telling time, and identifying her medications (see above) w/ acc WFL. Plan - Plan Plan: Will not recommend outpatient speech therapy at this time. Pt's performance on standardized and non-standardized assessments reveal Pt to be functioning WNL. Pt reporting having no difficulty w/tasks at home w/returning to PLOF. Provided education re: any future changes in mental status, speech, or swallowing, Pt contact PCP and speech will re-evaluate at that time. - Recommendations Treatment Warranted: No Education - Patient has Indicated that the Following Identified Educational Needs: None The Patient has indicated that they have no educational or learning abilities that may effect their care.: Yes - Patient Instruction Patient Education: Diagnosis, Treatment Plan, Home Exercise Program Person Taught: Patient Teaching Method: Discussion, Demonstration Response to teaching: Return demonstration, Verbalize understanding
== END 2021-06-30 19:00 | disposition home or self-care (01) ==
LOC: SP 13:30
PROVIDERS: PCP Internal Medicine; Referring Provider Family Medicine; Visit Provider Internal Medicine
DX: I69.392 Facial weakness following cerebral infarction (principal)
CPT/HCPCS: 92523; 97162; 97166

== ENCOUNTER 2021-07-30 17:06 | Emergency (ER) | payer MEDICARE, SELFPAY ==
[2021-07-30 17:07] VITALS: BP 173/68; PULSE 87; RESP 16; TEMP 38; O2SAT 94; BMI 35.3
--- NOTE | 2021-07-30 17:32 | EX.ED.DYSGE1 ---
HPI History of Present Illness Chief Complaint: Cough Informant: patient Onset/Context/Timing Onset: Weeks (5-weeks) Context: Gradual Onset Current Severity: Mild Maximum Severity: Moderate Narrative Narrative: Patient presents with 5-week history of cough and runny nose. She is concerned that she may have Covid. She denies fever at home. She states she will occasionally bring up sputum and last evening noted a slight pink tinge to it. Since that she has had sputum production that does not appear to be bloody. She denies chest pain. [facility] Medical History CVA (cerebral vascular accident) Diabetes HTN (hypertension) Uterine cancer Home Medications Levemir FlexTouch U-100 Insuln 55 unit SUBCUT DAILY 06/23/21 [History Last Taken 06/23/21 09:00] amlodipine 10 mg PO DAILY 06/23/21 [History Last Taken 06/22/21 22:00] aspirin 81 mg PO DAILY 06/23/21 [History Last Taken 06/22/21 22:00] atorvastatin 40 mg PO DAILY 06/23/21 [History Last Taken 06/22/21 12:00] losartan 100 mg PO DAILY 06/23/21 [History Last Taken 06/22/21 12:00] metformin 1,000 mg PO TID 06/23/21 [History Last Taken 06/22/21 22:00] metoprolol tartrate 100 mg PO BID 06/23/21 [History Last Taken 06/22/21 22:00] clopidogrel [Plavix] 75 mg PO DAILY #30 tab 06/24/21 [Rx Last Taken Unknown] levofloxacin 750 mg PO DAILY #4 tab 07/30/21 [Rx Last Taken Unknown] Allergy/AdvReac Type Severity Reaction Status Date / Time Tetanus Vaccines and Toxoid Allergy Other Verified 07/30/21 17:07 Surgical History H/O total hysterectomy Social History Smoking Status: Never smoker ROS ROS ED Constitutional Constitutional ED: Denies chills or fever(s) Eyes Eyes: Denies change in vision ENT ENT ED: Reports rhinorrhea; Denies sore throat Cardiovascular Cardiovascular: Denies chest pain Respiratory/Chest Respiratory/Chest: Reports cough and sputum; Denies dyspnea Gastrointestinal Gastrointestinal: Denies abdominal pain, diarrhea, nausea or vomiting Genitourinary Genitourinary ED: Denies dysuria Musculoskeletal Musculoskeletal: Denies back pain Integumentary Denies rash Neurologic Neurologic: Denies headache(s) or weakness EXAM Physical Exam Const Vital Signs: 07/30/21 17:07 07/30/21 17:52 07/30/21 18:01 Temperature 100.4 F H 100.4 F H Temperature Source Temporal Temporal Pulse Rate 87 87 Respiratory Rate 16 16 Respiratory Depth Normal Respiratory Pattern Normal Blood Pressure 173/68 H 173/68 H Blood Pressure Mean 103 103 Pulse Ox 94 94 Oxygen Delivery Method Room Air Room Air Room Air 07/30/21 19:07 07/30/21 19:16 Temperature 100.4 F H Temperature Source Temporal Pulse Rate 81 81 Respiratory Rate 18 18 Respiratory Depth Respiratory Pattern Blood Pressure 196/66 H 196/66 H Blood Pressure Mean 109 109 Pulse Ox 94 94 Oxygen Delivery Method Room Air Room Air Positive well nourished and well developed General Appearance ED: well developed HEENT Reports normocephalic and head/scalp atraumatic Eyes PERRL and EOMs intact bilaterally Neck supple Chest Wall inspection of chest normal and palpation of chest normal Resp normal respiratory effort and clear to auscultation bilaterally Cardio regular rate and regular rhythm GI non-tender Palpation: soft Back/Spine no CVA tenderness Extremity normal to inspection Neuro oriented x3 and no sensory deficits noted Sensorium / Orientation: alert Motor Exam: strength 5/5 throughout Psych mental status grossly normal Skin no rashes or lesions noted MDM MDM MDM Narrative Medical decision making narrative: Patient initially had Covid PCR and chest x-ray obtained. Chest x-ray does reveal right-sided infiltrate. At that point lab work and EKG obtained. Lab Data Attestation: I reviewed the patient's lab results. Labs: Laboratory Results - last 24 hr 07/30/21 07/30/21 07/30/21 17:47 18:35 18:35 WBC 6.1 RBC 4.21 Hgb 13.4 Hct 39.8 MCV 94.5 MCH 31.8 MCHC 33.7 RDW Std Deviation 46.7 H RDW Coeff of Maribel 13.6 Plt Count 217 MPV 10.0 Immature Gran % (Auto) 1.000 H Neut % (Auto) 62.7 Lymph % (Auto) 12.9 L [place] % (Auto) 18.8 H Eos % (Auto) 3.8 Baso % (Auto) 0.8 Absolute Neuts (auto) 3.9 Absolute Lymphs (auto) 0.79 L Nucleated RBC % 0 Sodium 140 Potassium 4.4 Chloride 104 Carbon Dioxide 26.0 Anion Gap 10 BUN 18 Creatinine 0.78 Estim Creat Clear Calc 34.30 Est GFR (MDRD) Af Amer 90 Est GFR (MDRD) Non-Af 75 BUN/Creatinine Ratio 22.9 H Glucose 127 H Calcium 9.4 COVID-19 (RUTH) Negative Radiography Chest X-Ray - ED: 1 View, Read by ED Physician and Right Infiltrate Diagnostic Testing: Clinical Impression(s) from Imaging Studies Chest X-Ray 07/30/21 17:40 IMPRESSION: Right upper lobe atelectasis or infiltrate Electronically Signed: Francisco Avelar MD at 18:28 EST , Service support , EKG Initial EKG: Attestation: I personally reviewed and interpreted this EKG as follows: Interpretation: Sinus Rhythm (Sinus 88 with no acute ischemia.) Treatment and Re-Evaluation Comments:: Covid PCR negative. Lab work unremarkable. Chest x-ray does reveal focal right sided infiltrate more consistent with a bacterial pneumonia than Covid. EKG unremarkable with normal QTC. Patient will be treated with a course of Levaquin, first dose given here. Discharge Plan Triage Chief Complaint: Cough ED Provider: Jessica Manjarrez Dx/Rx/DC Orders Clinical Impression: Pneumonia Instructions: ED Pneumonia (Adult) Prescriptions: New levofloxacin 750 mg tablet 750 mg PO DAILY Qty: 4 RF: 0 No Action atorvastatin 40 mg Tablet 40 mg PO DAILY RF: 0 metoprolol tartrate 100 mg Tablet 100 mg PO BID RF: 0 aspirin 81 mg Tablet,Delayed Release (Dr/Ec) 81 mg PO DAILY RF: 0 amlodipine 10 mg Tablet 10 mg PO DAILY RF: 0 metformin 1,000 mg Tablet 1,000 mg PO TID RF: 0 losartan 100 mg Tablet 100 mg PO DAILY RF: 0 Levemir FlexTouch U-100 Insuln 100 unit/mL (3 mL) Insulin Pen 55 unit SUBCUT DAILY RF: 0 clopidogrel [Plavix] 75 mg tablet 75 mg PO DAILY Qty: 30 RF: 0 Primary Care Provider: Cass Barney Referrals: Cass Barney DO [Primary Care Provider] - 1 Week Disposition Disposition: Home, Self Care
--- NOTE | 2021-07-30 17:40 | RAD_ITS ---
STUDY: X-RAY CHEST REASON FOR EXAM: Female, 81 years old. cough TECHNIQUE: AP portable COMPARISON: 06/23/2021 FINDINGS: Less than optimal inspiratory effort is seen. Mild right upper lobe atelectasis or infiltrate. Tiny calcified granuloma in the left lower lobe. There is no demonstrated pleural abnormality. Heart appears mildly enlarged.. Normal mediastinum and marquez. Normal visualized pulmonary arteries. Mildly calcified aortic arch and descending thoracic aorta. Normal visualized thoracic spine. Normal visualized ribs, clavicles, and shoulders. There is no demonstrated abnormality of the visualized soft tissue structures of the upper abdomen. RAD/Chest 1 View (Portable) IMPRESSION: Right upper lobe atelectasis or infiltrate Electronically Signed: Francisco Avelar MD at 18:28 EST , Service support ,
[2021-07-30 17:52] VITALS: BP 173/68; PULSE 87; RESP 16; TEMP 38; O2SAT 94
[2021-07-30 18:01] VITALS: O2SAT 93
--- NOTE | 2021-07-30 18:25 | EKG12_ITS ---
Test Reason : COUGH Blood Pressure : / mmHG Vent. Rate : 088 BPM Atrial Rate : 088 BPM P-R Int : 186 ms QRS Dur : 072 ms QT Int : 364 ms P-R-T Axes : 048 -11 040 degrees QTc Int : 440 ms Normal sinus rhythm Normal ECG Confirmed by KAMERON MOJICA, CARO ([id number]), website/blog editor MAYRA LE ([id number]) on 08/04/2021 9:21:30 AM Referred By: OTONIEL Confirmed By:KIM MELO MD
[2021-07-30 18:53] LABS: Absolute Lymphocyte Count 0.79 X10^3/uL (0.83-4.51); Absolute Neutrophil Count 3.9 X10^3/uL (2.0-7.7); Basophil# 0.05 X10^3/uL; Basophil% 0.8 % (0-1); Eosinophil# 0.23 X10^3/uL; Eosinophils% 3.8 % (0-5); Hematocrit 39.8 % (37-47); Hemoglobin 13.4 g/dL (12.0-15.0); Lymphocyte # 0.79 X10^3/ul (0.83-4.51); Lymphocyte % 12.9 % (19-41); Mean Corp Hgb Conc 33.7 g/dL (32-36); Mean Corpuscular Hgb 31.8 pg (27.0-32.0); Mean Corpuscular Volume 94.5 fL (81-99); Monocyte# 1.15 X10^3/uL; Monocyte% 18.8 % (0-10); NRBC Flagged by Analyzer 0 % (0-5); Neutrophil # 3.85 X10^3/uL (2.7-7.7); Neutrophil % 62.7 % (47-70); Platelet Count 217 K/mm3 (150-450); RBC Distribution Width CV 13.6 % (11.6-14.6); RBC Distribution Width SD 46.7 fl (35.1-43.9); Red Blood Count 4.21 M/mm3 (4.2-5.4); White Blood Count 6.1 K/mm3 (4.4-11.0)
[2021-07-30 19:06] LABS: Anion Gap 10 (5-15); BUN 18 mg/dL (7-18); BUN/Creat Ratio 22.9 RATIO (10-20); Calcium,Total 9.4 mg/dL (8.5-10.1); Chloride 104 mmol/L (98-107); Creatinine, Serum 0.78 mg/dL (0.55-1.02); EST Glomerular Filtration Rate 75 mL/min (>60); Est Glom Filt Rate - Afr Amer 90 mL/min (>60); Glucose 127 mg/dL (74-106); Potassium 4.4 mmol/L (3.5-5.1); Sodium Level 140 mmol/L (136-145)
[2021-07-30 19:07] VITALS: BP 196/66; PULSE 81; RESP 18; O2SAT 94
[2021-07-30 19:16] VITALS: BP 196/66; PULSE 81; RESP 18; TEMP 38; O2SAT 94
[2021-07-30 19:22] LABS: Probe Check PASS; Specimen Processing Control PASS
[2021-07-30] MEDS: levoFLOXacin 750 MG Tablet PO (20:10)
[2021-07-30 21:05] VITALS: BP 146/80; PULSE 72; RESP 15; O2SAT 98
== END 2021-07-30 21:06 | disposition home or self-care (01) ==
PROVIDERS: Emergency Provider Emergency Medicine; PCP Internal Medicine
DX: J18.9 Pneumonia, unspecified organism (principal); E11.9 Type 2 diabetes mellitus without complications; I10 Essential (primary) hypertension; Z79.4 Long term (current) use of insulin; Z79.899 Other long term (current) drug therapy
CPT/HCPCS: 71045; 80048; 85025; 87040; 87635; 93005; 99283; U0005; U0003

== ENCOUNTER 2021-10-20 17:21 | Emergency (ER) | payer MEDICARE, SELFPAY ==
[2021-10-20 17:23] VITALS: BP 190/66; PULSE 89; RESP 17; TEMP 36.8; O2SAT 95; BMI 36.0
--- NOTE | 2021-10-20 18:22 | EX.ED.DYSGE1 ---
HPI History of Present Illness Chief Complaint: Weakness Detail of Chief Complaint: Generalized weakness that started a couple hours prior to presentation Informant: patient and spouse/S.O. Onset/Context/Timing Onset: Hours Context: Sudden Onset Timing: Continuous Quality: Weakness Location: Generalized Current Severity: Mild Maximum Severity: Mild Worsened by: Nothing Relieved by: Nothing Associated Symptoms Associated Symptoms: Nothing Narrative Narrative: Patient is an elderly woman who presents with generalized weakness that started a couple hours prior to presentation. She has a history of hypertension and hypercholesterolemia. She is also had 2 mini strokes . She denies fever, chills or night sweats. She denies change in vision, blurred vision or double vision. She denies ringing or ears or decreased hearing. She denies rhinorrhea, congestion postnasal drainage. Denies sore throat. She denies trouble with her speech or swallowing. She denies cardiac respiratory symptoms. She denies nausea, vomiting diarrhea. She denies abdominal pain. She denies back pain. She denies dysuria, frequency, urgency or hematuria. She has numbness in her fingers due to neuropathy. She denies problems with coordination or balance. Prior similar symptoms: No Recent Illness/Hospitalization: No [facility] Medical History CVA (cerebral vascular accident) Diabetes HTN (hypertension) Uterine cancer Home Medications Levemir FlexTouch U-100 Insuln 55 unit SUBCUT DAILY 06/23/21 [History Last Taken 06/23/21 09:00] amlodipine 10 mg PO DAILY 06/23/21 [History Last Taken 06/22/21 22:00] aspirin 81 mg PO DAILY 06/23/21 [History Last Taken 06/22/21 22:00] atorvastatin 40 mg PO DAILY 06/23/21 [History Last Taken 06/22/21 12:00] losartan 100 mg PO DAILY 06/23/21 [History Last Taken 06/22/21 12:00] metformin 1,000 mg PO TID 06/23/21 [History Last Taken 06/22/21 22:00] metoprolol tartrate 100 mg PO BID 06/23/21 [History Last Taken 06/22/21 22:00] clopidogrel [Plavix] 75 mg PO DAILY #30 tab 06/24/21 [Rx Last Taken Unknown] levofloxacin 750 mg PO DAILY #4 tab 07/30/21 [Rx Last Taken Unknown] Allergy/AdvReac Type Severity Reaction Status Date / Time Tetanus Vaccines and Toxoid Allergy Other Verified 10/20/21 17:22 Surgical History H/O total hysterectomy Social History (Updated 10/20/21 @ 18:[address] Spencer Estrada MD) household members: spouse Smoking Status: Never smoker substance use type: does not use ROS ROS ED Constitutional Constitutional ED: Denies chills, fever(s), subjective, sweats or weight loss Eyes Eyes: Denies blurry vision, change in vision or diplopia ENT ENT ED: Denies ear pain, rhinorrhea or sore throat Cardiovascular Cardiovascular: Denies chest pain, orthopnea or palpitations Respiratory/Chest Respiratory/Chest: Denies cough, dyspnea, dyspnea on exertion or orthopnea Gastrointestinal Gastrointestinal: Denies abdominal pain, diarrhea, melena, nausea or vomiting Genitourinary Genitourinary ED: Denies dysuria, hematuria or urinary frequency Musculoskeletal Musculoskeletal: Denies arthralgias, back pain, myalgias or neck pain Integumentary Denies Abrasions or rash Neurologic Neurologic: Reports paresthesias and weakness; Denies headache(s) Psychiatric Psychiatric: Denies anxiety or depression Endocrine Endocrinology: Denies polydipsia, polyphagia or polyuria EXAM Physical Exam Const Vital Signs: 10/20/21 17:23 10/20/21 18:08 Temperature 98.2 F Temperature Source Temporal Pulse Rate 89 Respiratory Rate 17 Respiratory Effort Normal Non-Labored Blood Pressure 190/66 H Blood Pressure Mean 107 Pulse Ox 95 Oxygen Delivery Method Room Air Positive well nourished, well developed and obese General Appearance ED: well developed and NAD; Negative for cyanotic, diaphoretic or pallor Nutritional Appearance: obese HEENT Reports moist mucous membranes HEENT Narrative: Patient has alopecia. Ears normal. Posterior pharynx erythema XA. Uvula midline. Negative for trauma or tenderness Eyes EOMs intact bilaterally Eyes Narrative: Status post cataract surgery. Patient has significant visual deficit on the right due to retinal detachment x2. General Eye ED: Negative for pale conjunctiva or scleral icterus Neck no lymphadenopathy, supple and no JVD General: Negative for tenderness Resp normal respiratory effort and clear to auscultation bilaterally Cardio regular rate, regular rhythm, S1 normal heart sound, S2 normal heart sound and no murmurs GI normal to inspection, nondistended, normoactive bowel sounds, non-tender and non-distended Palpation: soft Back/Spine no CVA tenderness Cervical Spine: Negative for cervical spine tenderness Thoracic Spine / Upper Back: Negative for thoracic spinal tenderness or paraspinal muscle tenderness Lumbar Spine / Lower Back: Negative for lumbar spinal tenderness Extremity normal to inspection General Extremety ED: Negative for edema or tenderness General Extremity: Negative for edema Neuro oriented x3, CN's II-XII intact bilaterally and no sensory deficits noted Sensorium / Orientation: alert Motor Exam: strength 5/5 throughout Skin no rashes or lesions noted and no wounds General Skin Exam: Negative for jaundice or pallor MDM MDM MDM Narrative Medical decision making narrative: Patient with generalized weakness. Will obtain blood work to assess for metabolic or infectious etiology. Also UA was obtained. This may be related to her diabetes. Lab Data Attestation: I reviewed the patient's lab results. Lab results narrative: CBC, H&H and differential unremarkable. Basic metabolic panel reveals mild hyperkalemia. CO2 and anion gap are normal. Creatinine and renal function is normal. UA is negative other than proteinuria microscopic hematuria and glucosuria. She is diabetic and blood sugar is elevated at 156. She was informed the cause of her weakness is unknown. Labs: Laboratory Results - last 24 hr 10/20/21 10/20/21 10/20/21 18:10 18:10 19:00 WBC 6.8 RBC 4.17 L Hgb 13.4 Hct 38.6 MCV 92.6 MCH 32.1 H MCHC 34.7 RDW Std Deviation 43.2 RDW Coeff of [place]ibel 12.8 Plt Count 289 MPV 10.3 Immature Gran % (Auto) 0.400 Neut % (Auto) 59.5 Lymph % (Auto) 21.6 [place] % (Auto) 12.4 H Eos % (Auto) 5.5 H Baso % (Auto) 0.6 Absolute Neuts (auto) 4.0 Absolute Lymphs (auto) 1.46 Nucleated RBC % 0 Sodium 136 Potassium 5.4 H Chloride 106 Carbon Dioxide 27.0 Anion Gap 3 L BUN 20 H Creatinine 0.75 Estim Creat Clear Calc 34.30 Est GFR (MDRD) Af Amer 96 Est GFR (MDRD) Non-Af 79 BUN/Creatinine Ratio 26.8 H Glucose 156 H Calcium 9.0 Total Bilirubin 0.90 AST 67 H ALT 29 Alkaline Phosphatase 95 Total Protein 7.2 Albumin 3.3 Globulin 3.9 Albumin/Globulin Ratio 0.8 L Urine Color Yellow Urine Clarity Clear Urine pH 6.0 Ur Specific [place] 1.015 Urine Protein 100 H Urine Glucose (UA) 50 H Urine Ketones Negative Urine Occult Blood 10 H Urine Nitrite Negative Urine Bilirubin Negative Urine Urobilinogen Normal Ur Leukocyte Esterase Negative Urine RBC 0-5 SEEN Urine WBC 0 SEEN Ur Squamous Epith Cells 0-5 SEEN Urine Bacteria 0 SEEN Urine Mucus 0 SEEN Discharge Plan Triage Chief Complaint: Weakness ED Provider: Spencer Estrada Dx/Rx/DC Orders Clinical Impression: Generalized weakness, Type 2 diabetes mellitus with hyperglycemia, 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 Instructions: ED Weakness (Uncertain Cause) Prescriptions: No Action atorvastatin 40 mg Tablet 40 mg PO DAILY RF: 0 metoprolol tartrate 100 mg Tablet 100 mg PO BID RF: 0 aspirin 81 mg Tablet,Delayed Release (Dr/Ec) 81 mg PO DAILY RF: 0 amlodipine 10 mg Tablet 10 mg PO DAILY RF: 0 metformin 1,000 mg Tablet 1,000 mg PO TID RF: 0 losartan 100 mg Tablet 100 mg PO DAILY RF: 0 Levemir FlexTouch U-100 Insuln 100 unit/mL (3 mL) Insulin Pen 55 unit SUBCUT DAILY RF: 0 clopidogrel [Plavix] 75 mg tablet 75 mg PO DAILY Qty: 30 RF: 0 levofloxacin 750 mg tablet 750 mg PO DAILY Qty: 4 RF: 0 Primary Care Provider: Cass Barney Referrals: Cass Barney DO [Primary Care Provider] - 3-5 Days if not improving Disposition Disposition: Home, Self Care
[2021-10-20 18:49] LABS: Absolute Lymphocyte Count 1.46 X10^3/uL (0.83-4.51); Basophil# 0.04 X10^3/uL; Basophil% 0.6 % (0-1); Eosinophil# 0.37 X10^3/uL; Eosinophils% 5.5 % (0-5); Hematocrit 38.6 % (37-47); Hemoglobin 13.4 g/dL (12.0-15.0); Lymphocyte # 1.46 X10^3/ul (0.83-4.51); Lymphocyte % 21.6 % (19-41); Mean Corp Hgb Conc 34.7 g/dL (32-36); Mean Corpuscular Hgb 32.1 pg (27.0-32.0); Mean Corpuscular Volume 92.6 fL (81-99); Mean Platelet Vol. 10.3 fl (6.2-12.0); Monocyte# 0.84 X10^3/uL; Monocyte% 12.4 % (0-10); NRBC Flagged by Analyzer 0 % (0-5); Neutrophil # 4.03 X10^3/uL (2.7-7.7); Neutrophil % 59.5 % (47-70); Platelet Count 289 K/mm3 (150-450); RBC Distribution Width CV 12.8 % (11.6-14.6); RBC Distribution Width SD 43.2 fl (35.1-43.9); Red Blood Count 4.17 M/mm3 (4.2-5.4); White Blood Count 6.8 K/mm3 (4.4-11.0)
[2021-10-20 19:06] LABS: ALB/GLOB Ratio 0.8 RATIO (0.9-2.4); AST(SGOT) 67 U/L (15-37); Alanine Aminotransfer ALT/SGPT 29 U/L (13-56); Albumin, Serum 3.3 g/dL (3.2-5.0); Alkaline Phosphatase 95 U/L (45-117); Anion Gap 3 (5-15); BUN 20 mg/dL (7-18); BUN/Creat Ratio 26.8 RATIO (10-20); Chloride 106 mmol/L (98-107); Creatinine, Serum 0.75 mg/dL (0.55-1.02); EST Glomerular Filtration Rate 79 mL/min (>60); Est Glom Filt Rate - Afr Amer 96 mL/min (>60); Globulin 3.9 g/dL (2.2-4.2); Glucose 156 mg/dL (74-106); Potassium 5.4 mmol/L (3.5-5.1); Protein, Total 7.2 g/dL (6.4-8.2); Sodium Level 136 mmol/L (136-145)
[2021-10-20 19:07] LABS: Bacteria 0 SEEN /hpf (None Seen); Mucous, Urine 0 SEEN /hpf (<or=2+); White Blood Cells 0 SEEN /hpf (0-5)
[2021-10-20 19:08] LABS: Color, Urine Yellow (Yellow); Glucose, Dipstick 50 mg/dl (Normal); Ketone-Dipstick Negative (Negative); Leukocyte Esterase-Dipstick Negative /ul (Negative); Nitrite-Dipstick Negative (Negative); Occult Blood-Urine 10 /ul (Negative); Protein-Dipstick 100 mg/dl (Negative); Specific Gravity, Urine 1.015 (1.002-1.030); Urine Bilirubin Dipstick Negative (Negative); Urine Clarity Clear (Clear); Urine Urobilinogen Normal (Normal)
[2021-10-20 19:15] LABS: Red Blood Cells-Urine 0-5 SEEN /hpf (0-5); Squamous Epithelial Cells - UA 0-5 SEEN /hpf (5-10)
[2021-10-20 19:39] VITALS: BP 167/70; PULSE 83; RESP 17; O2SAT 95
== END 2021-10-20 19:40 | disposition home or self-care (01) ==
PROVIDERS: Emergency Provider Emergency Medicine; PCP Internal Medicine; Visit Provider Emergency Medicine
DX: R53.1 Weakness (principal); E11.65 Type 2 diabetes mellitus with hyperglycemia; N28.9 Disorder of kidney and ureter, unspecified; E66.9 Obesity, unspecified
CPT/HCPCS: 80053; 81001; 85025; 99284; A4216

== ENCOUNTER 2021-10-23 10:16 | Outpatient (CLI) | payer MEDICARE, SELFPAY ==
--- NOTE | 2021-10-23 10:31 | RAD_ITS ---
STUDY: X-RAY CHEST REASON FOR EXAM: Female, 81 years old. COUGH TECHNIQUE: PA and lateral views of the chest. COMPARISON: Comparison is made with prior study dated 07/30/2021. FINDINGS: The lungs are clear and expanded. There is no demonstrated pleural abnormality. Normal size heart. Normal mediastinum and marquez. Normal visualized pulmonary arteries. There is atherosclerotic tortuosity of the aortic arch and descending thoracic aorta. Normal visualized thoracic spine. Normal visualized ribs, clavicles, and shoulders. There is no demonstrated abnormality of the visualized soft tissue structures of the upper abdomen. RAD/Chest PA and Lateral IMPRESSION: Normal x-ray examination of the chest. Electronically Signed: Luis Mercado MD at 14:01 EST ,
== END 2021-10-23 23:59 | disposition home or self-care (01) ==
PROVIDERS: PCP Internal Medicine; Referring Provider Internal Medicine; Visit Provider Internal Medicine
DX: R05.9 Cough, unspecified (principal)
CPT/HCPCS: 71046

== ENCOUNTER 2023-08-17 17:19 | Inpatient (IN) | payer MEDICARE, SELFPAY ==
[2023-08-17] VITALS (10 sets, daily range): BP systolic 110–178; BP diastolic 57–150; PULSE 90–100; RESP 18–26; TEMP 36.2–36.4; O2SAT 84–97; BMI 38.6; BMI 35.7
--- NOTE | 2023-08-17 17:23 | EX.ED.DYSGE1 ---
HPI History of Present Illness Chief Complaint: Shortness of Breath [facility] Medical History CVA (cerebral vascular accident) Diabetes HTN (hypertension) Uterine cancer Home Medications amlodipine 10 mg tablet 10 mg PO DAILY blood pressure 06/23/21 [History Last Taken 06/22/21 22:00] atorvastatin 40 mg tablet 40 mg PO DAILY cholesterol 06/23/21 [History Last Taken 06/22/21 12:00] insulin detemir U-100 100 unit/mL (3 mL) subcutaneous pen (Levemir FlexTouch U-100 Insulin) 55 unit subcut DAILY diabetes 06/23/21 [History Last Taken 06/23/21 09:00] losartan 100 mg tablet 100 mg PO DAILY blood pressure 06/23/21 [History Last Taken 06/22/21 12:00] metformin 1,000 mg tablet 1,000 mg PO TID diabetes 06/23/21 [History Last Taken 06/22/21 22:00] metoprolol tartrate 100 mg tablet 100 mg PO BID blood pressure 06/23/21 [History Last Taken 06/22/21 22:00] clopidogrel 75 mg tablet (Plavix) 75 mg PO DAILY #30 tabs 06/24/21 [Rx Last Taken Unknown] aspirin 325 mg tablet 325 mg PO DAILY 04/09/22 [History Last Taken Unknown] Allergy/AdvReac Type Severity Reaction Status Date / Time Tetanus Vaccines and Toxoid Allergy Other Verified 08/17/23 17:23 Surgical History H/O total hysterectomy Social History household members: spouse Smoking Status: Never smoker substance use type: does not use Discharge Plan Triage Chief Complaint: Shortness of Breath ED Midlevel Provider: Miki Lindsey ED Provider: Spencer Estrada Dx/Rx/DC Orders Prescriptions: No Action aspirin 325 mg tablet 325 mg PO DAILY atorvastatin 40 mg Tablet 40 mg PO DAILY metoprolol tartrate 100 mg Tablet 100 mg PO BID amlodipine 10 mg Tablet 10 mg PO DAILY metformin 1,000 mg Tablet 1,000 mg PO TID losartan 100 mg Tablet 100 mg PO DAILY Levemir FlexTouch U100 Insulin 100 unit/mL (3 mL) Insulin Pen 55 unit SUBCUT DAILY clopidogrel [Plavix] 75 mg tablet 75 mg PO DAILY Qty: 30 0RF Primary Care Provider: Cass Barney Referrals: Cass Barney DO [Primary Care Provider] -
--- NOTE | 2023-08-17 17:35 | EKG12_ITS ---
Test Reason : SOB Blood Pressure : / mmHG Vent. Rate : 093 BPM Atrial Rate : 093 BPM P-R Int : 188 ms QRS Dur : 080 ms QT Int : 360 ms P-R-T Axes : 044 001 063 degrees QTc Int : 447 ms Normal sinus rhythm Nonspecific ST and T wave abnormality Abnormal ECG Confirmed by MALIK MOJICA, JIGNESH ([id number]), manager editorial ELEN MARIEE ([id number]) on 08/19/2023 10:29:00 AM Referred By: Confirmed By:JIGNESH GAN MD
[2023-08-17] MEDS: Ipratropium/Albuterol Sulfate 3 ML AMPUL.NEB INHALATION (17:44)
[2023-08-17] MEDS: Albuterol 2.5 MG/3 ML VIAL.NEB. INHALATION (17:44)
[2023-08-17] MEDS: MethylPREDNISolone 125 MG/2 ML Vial IV ×2 (17:48→21:43)
[2023-08-17 17:49] LABS: Absolute Lymphocyte Count 1.39 X10^3/uL (0.83-4.51); Absolute Neutrophil Count 6.2 X10^3/uL (2.0-7.7); Basophil# 0.07 X10^3/uL; Basophil% 0.8 % (0-1); Eosinophil# 0.11 X10^3/uL; Eosinophils% 1.3 % (0-5); Lymphocyte # 1.39 X10^3/ul (0.83-4.51); Lymphocyte % 16.2 % (19-41); Mean Corp Hgb Conc 32.6 g/dL (32-36); Mean Corpuscular Hgb 31.6 pg (27.0-32.0); Mean Corpuscular Volume 97.1 fL (81-99); Mean Platelet Vol. 9.9 fl (6.2-12.0); Monocyte# 0.78 X10^3/uL; Monocyte% 9.1 % (0-10); NRBC Flagged by Analyzer 0 % (0-5); Neutrophil # 6.17 X10^3/uL (2.7-7.7); Neutrophil % 71.9 % (47-70); Platelet Count 288 K/mm3 (150-450); RBC Distribution Width CV 14.4 % (11.6-14.6); RBC Distribution Width SD 51.7 fl (35.1-43.9); Red Blood Count 4.43 M/mm3 (4.2-5.4); White Blood Count 8.6 K/mm3 (4.4-11.0)
[2023-08-17 18:11] LABS: Anion Gap 5 (5-15); BUN 15 mg/dL (7-18); BUN/Creat Ratio 19.5 RATIO (10-20); Calcium,Total 9.7 mg/dL (8.5-10.1); Chloride 108 mmol/L (98-107); Creatinine, Serum 0.77 mg/dL (0.55-1.02); EST Glomerular Filtration Rate 76 mL/min (>60); Est Glom Filt Rate - Afr Amer 92 mL/min (>60); Estimated Creatinine Clearance 33.12 ml/min; Glucose 167 mg/dL (74-106); Potassium 3.3 mmol/L (3.5-5.1); Sodium Level 141 mmol/L (136-145); Troponin-I HS 18 pg/mL (3.0-54.0)
--- NOTE | 2023-08-17 18:14 | EX.ED.DYSGE1 ---
HPI <ANGEL Beckman - Last Filed: 08/17/23 20:57> History of Present Illness Chief Complaint: Shortness of Breath Narrative Narrative: Patient is an 83-year-old female with history of hypertension, diabetes, CAD on Plavix who presents to the emergency department for worsening shortness of breath. He states that the shortness of breath started a couple weeks ago, however today while walking, she says she could not catch her breath. She denies any new cough, she denies any new leg swelling. Patient had her legs swell however they are better in the morning, spoke worse before going to bed. Patient denies any fever or chills. Patient [place] any sick contacts. PFS <ANGEL Beckman - Last Filed: 08/17/23 20:57> [facility], [facility] Medical History CVA (cerebral vascular accident) Diabetes HTN (hypertension) Uterine cancer Home Medications amlodipine 10 mg tablet 10 mg PO DAILY BLOOD PRESSURE 06/23/21 [History Last Taken 08/16/23] atorvastatin 40 mg tablet 40 mg PO DINNER CHOLESTEROL 06/23/21 [History Last Taken 08/16/23] insulin detemir U-100 100 unit/mL (3 mL) subcutaneous pen (Levemir FlexTouch U-100 Insulin) 60 unit subcut DAILY DIABETES 06/23/21 [History Last Taken 08/17/23] losartan 100 mg tablet 100 mg PO DAILY BLODOD PRESSURE 06/23/21 [History Last Taken 08/16/23] metoprolol tartrate 100 mg tablet 100 mg PO BID BLOOD PRESSURE 06/23/21 [History Last Taken 08/16/23] clopidogrel 75 mg tablet (Plavix) 75 mg PO DAILY BLOOD THINNER #30 tabs 06/24/21 [Rx Last Taken 08/16/23] aspirin 325 mg tablet 325 mg PO DAILY HEART HEALTH 04/09/22 [History Last Taken 08/16/23] albuterol sulfate 90 mcg/actuation aerosol inhaler 2 puff inhalation Q6H PRN SHORTNESS OF BREATH 08/17/23 [History Last Taken Unknown] metformin 500 mg tablet,extended release 24 hr 1,000 mg PO BID DIABETES 08/17/23 [History Last Taken 12/18/23] Allergy/AdvReac Type Severity Reaction Status Date / Time Tetanus Vaccines and Toxoid Allergy Other Verified 08/17/23 17:23 Surgical History H/O total hysterectomy Social History household members: spouse Smoking Status: Never smoker substance use type: does not use ROS <ANGEL Beckman - Last Filed: 08/17/23 20:57> ROS ED ROS Narrative Constitutional: Negative for fever, chills, weight loss. Positive weakness Eyes: Negative for vision loss, vision change, double vision ENT: Negative for any sore throat, ear pain, congestion Cardiovascular: Negative for any chest pain, tightness, palpitations Respiratory: Negative for any cough, sputum production, hemoptysis.positive for dyspnea, dyspnea on exertion, orthopnea Gastrointestinal: Negative for any abdominal pain, nausea, vomiting, diarrhea, constipation, blood in stool, blood in vomit : Negative for any urinary frequency, dysuria, retention, blood in urine Muscle skeletal: Negative for any myalgias, arthralgias, neck pain, back pain Neurological: Negative for any headache, syncope, paresthesias, dizziness Skin: Negative for any rashes, lumps, itching, abrasions, lacerations Psychiatric: Negative for any depression, anxiety, stress, suicidal ideation, homicidal ideation Hematologic: Negative for any easy bruising, excessive bruising, easy bleeding Allergies: Negative for any eczema, hives, rash EXAM <ANGEL Beckman - Last Filed: 08/17/23 20:57> Physical Exam Narrative Exam Narrative: Vital signs reviewed. Patient looks to be in mild respiratory distress. Patient is 92% on 4 L. HEET: Head normocephalic atraumatic, TMs clear bilaterally. Posterior pharynx is clear, moist mucous membranes. Nares clear bilaterally. Neck: Supple with no lymphadenopathy or tenderness. No signs of meningismus. Cardiac: Regular rate and rhythm no murmurs gallops or rubs, equal peripheral pulses bilaterally. Respiratory: Expiratory wheezes on the left, diminished lung sounds on the right. No chest tenderness. Abdomen: Soft, nontender, nondistended. No abdominal bruit or pulsatile masses. No hepatosplenomegaly Extremities: Positive for edema +2 lower extremities, no signs of gross trauma or deformity. Active full range of motion of all extremities. Neuro: Cranial nerves II through XII intact, no focal neurological deficits. Skin: Clean dry and intact with no rash, purpura, petechiae, vesicles or pustules. Backs/flank: No CVA tenderness, no midline spinal tenderness, no deformity. Psych: Normal mood and affect. No SI, HI or acute psychosis. Const Vital Signs: 08/17/23 17:23 08/17/23 17:25 08/17/23 18:15 Temperature 97.1 F L Temperature Source Temporal Pulse Rate 94 100 Respiratory Rate 26 H 25 H Respiratory Effort Respiratory Depth Respiratory Pattern Normal Blood Pressure 178/150 H Blood Pressure Mean 159 Pulse Ox 84 92 Oxygen Delivery Method Room Air Nasal Cannula Oxygen Flow Rate (L/min) 4 08/17/23 18:15 08/17/23 17:49 08/17/23 17:50 Temperature Temperature Source Pulse Rate Respiratory Rate Respiratory Effort Short of Breath Respiratory Depth Shallow Respiratory Pattern Tachypnea Blood Pressure Blood Pressure Mean Pulse Ox 93 93 Oxygen Delivery Method Nasal Cannula Nasal Cannula Nasal Cannula Oxygen Flow Rate (L/min) 5 5 5 <Dr. Spencer Estrada MD - Last Filed: 08/17/23 21:06> Physical Exam Const Vital Signs: 08/17/23 17:23 08/17/23 17:25 08/17/23 18:15 Temperature 97.1 F L Temperature Source Temporal Pulse Rate 94 100 Respiratory Rate 26 H 25 H Respiratory Effort Respiratory Depth Respiratory Pattern Normal Blood Pressure 178/150 H Blood Pressure Mean 159 Pulse Ox 84 92 Oxygen Delivery Method Room Air Nasal Cannula Oxygen Flow Rate (L/min) 4 08/17/23 18:15 08/17/23 17:49 08/17/23 17:50 Temperature Temperature Source Pulse Rate Respiratory Rate Respiratory Effort Short of Breath Respiratory Depth Shallow Respiratory Pattern Tachypnea Blood Pressure Blood Pressure Mean Pulse Ox 93 93 Oxygen Delivery Method Nasal Cannula Nasal Cannula Nasal Cannula Oxygen Flow Rate (L/min) 5 5 5 Sepsis Attestation <Dr. Spencer Estrada MD - Last Filed: 08/17/23 21:06> Possible Source of Sepsis: Pulmonary Sepsis Organ Dysfunction Criteria Present: Lactic Acid > 2 mmol/L (Patient's lactic acidosis all likely is due to her respiratory failure from hypoxia. Based on her insurance she does not qualify for sepsis.) [facility] <Miki JensenJORJE murillo-C - Last Filed: 08/17/23 20:57> [facility] Lab Data Labs: Laboratory Results - last 24 hr 08/17/23 08/17/23 17:39 18:45 WBC 8.6 RBC 4.43 Hgb 14.0 Hct 43.0 MCV 97.1 MCH 31.6 MCHC 32.6 RDW Std Deviation 51.7 H RDW Coeff of Maribel 14.4 Plt Count 288 MPV 9.9 Immature Gran % (Auto) 0.700 Neut % (Auto) 71.9 H Lymph % (Auto) 16.2 L Cidra % (Auto) 9.1 Eos % (Auto) 1.3 Baso % (Auto) 0.8 Absolute Neuts (auto) 6.2 Absolute Lymphs (auto) 1.39 Nucleated RBC % 0 Sodium 141 Potassium 3.3 L Chloride 108 H Carbon Dioxide 28.0 Anion Gap 5 BUN 15 Creatinine 0.77 Estim Creat Clear Calc 33.12 Est GFR (MDRD) Af Amer 92 Est GFR (MDRD) Non-Af 76 BUN/Creatinine Ratio 19.5 Glucose 167 H Lactic Acid 2.4 H* Calcium 9.7 Troponin I High Sens 18 B-Natriuretic Peptide 431.5 H ABG Data ABG results: ABG 08/17/23 18:33 Specimen Type ART Sample Site L Radial pH 7.36 Bicarbonate Actual 27.1 H Total CO2 29 Base Excess 2 O2 Saturation 92 L O2 % 5.0 ABG pCO2 47.5 H ABG pO2 65 L Dimas Test Positive O2 Delivery Device Cannula Vent Mode Not entered Radiography Diagnostic Testing: Clinical Impression(s) from Imaging Studies Chest X-Ray 08/17/23 18:16 IMPRESSION: Bilateral patchy and streaky airspace opacities could represent infiltrate or atelectasis. Trace bilateral pleural effusions. Electronically Signed: Austin Mckeon MD at 18:30 EST , EKG Normal sinus rhythm: Attestation: I personally reviewed and interpreted this EKG as follows: Interpretation: Sinus Rhythm Comments: Normal sinus rhythm, rate of 93 bpm, CT interval 198 ms, QRS duration 80 ms, no acute ST elevation, no acute apart noted. Treatment and Re-Evaluation :: Patient appears to be in mild respiratory distress, patient is 90 to 90% on 4 L nasal cannula. Patient does not normally wear oxygen. Differential diagnosis includes CHF exacerbation, COPD exacerbation, reactive airway, pneumonia, respiratory viral illness. Patient will be given IV steroids, breathing treatments. Two-view chest x-ray will be completed all radiologic examinations were read, reviewed by the emergency department attending. From these reads, a plan of care will be put in place. Laboratory values will be completed such as CBC, BMP, BNP, troponin. Patient's laboratory values show a normal CBC patient's chemistries show a hypokalemia at 3.3, patient's BNP was 431.5 which is elevated. Patient's chest x-ray showed bilateral patchy and streaky airspace opacities could represent infiltrate. Trace bilateral pleural effusions. Patient's COVID-19, influenza was negative. Patient's blood gas did show some hypoxia. 2 sets of blood cultures were completed, lactic drawn. Patient will start on azithromycin, Rocephin for pneumonia. Secondary to the patient hypoxia, physical lamination, findings, patient will need admitted to the hospital. I will speak with the hospitalist. Stable for admission <Dr. Spencer Estrada MD - Last Filed: 08/17/23 21:06> [facility] Narrative Medical decision making narrative: I have personally performed a face to face assessment of the patient and have reviewed the DEDE Note. I performed a substantive portion of the visit including all aspects of the following. My zavala findings include: History is remarkable for shortness of breath, dyspnea on exertion. She denies orthopnea or PND. Denies history of coronary disease. She denies history of congestive heart failure. She has used an inhaler in the past for acute bronchitis. She has no history of asthma. She does report leg swelling that is worse at night compared to the morning. She denies headache, visual, ocular auditory symptoms. She does report mild congestion. Exam is remarkable for patient being tachypneic hypoxic and elevated blood pressure. Patient is heavyset with a BMI of 38.6. Patient's HEENT exam is remarkable for alopecia. Trachea is midline. There is no in-store extra stridor. Breath sounds are diminished bilaterally. There is high-pitched wheezing noted bilaterally greater on left than right. There are rales at both bases. There is no rhonchi. Expiratory phase is prolonged. Abdomen is soft nontender. She has minimal edema of the lower extremities. Medical Decision Making differential diagnosis would be cardiac etiology i.e. CHF, ischemia versus renal etiology with lymphedema versus pneumonia and the edema is dependent. Workup included chest x-ray, rapid influenza and COVID antigen, appropriate blood work to assess for anemia, white count renal function. Other additions or changes: Chest x-ray reveals right greater than left infiltrate. There may be a small effusion on the right. There is no cephalization or curly B-lines noted. Cardiac size is normal. Perihilar regions unremarkable. Osseous structures are unremarkable. This was independent reviewed interpreted by me. Because patient is requiring more and more oxygen ABG was obtained and reveals a significant AA gradient. Patient was treated with Rocephin and azithromycin for bilateral patchy infiltrates. Lactate elevated. This is due to hypoxia. Lab Data Attestation: I reviewed the patient's lab results. Labs: Laboratory Results - last 24 hr 08/17/23 08/17/23 17:39 18:45 WBC 8.6 RBC 4.43 Hgb 14.0 Hct 43.0 MCV 97.1 MCH 31.6 MCHC 32.6 RDW Std Deviation 51.7 H RDW Coeff of Maribel 14.4 Plt Count 288 MPV 9.9 Immature Gran % (Auto) 0.700 Neut % (Auto) 71.9 H Lymph % (Auto) 16.2 L Cidra % (Auto) 9.1 Eos % (Auto) 1.3 Baso % (Auto) 0.8 Absolute Neuts (auto) 6.2 Absolute Lymphs (auto) 1.39 Nucleated RBC % 0 Sodium 141 Potassium 3.3 L Chloride 108 H Carbon Dioxide 28.0 Anion Gap 5 BUN 15 Creatinine 0.77 Estim Creat Clear Calc 33.12 Est GFR (MDRD) Af Amer 92 Est GFR (MDRD) Non-Af 76 BUN/Creatinine Ratio 19.5 Glucose 167 H Lactic Acid 2.4 H* Calcium 9.7 Troponin I High Sens 18 B-Natriuretic Peptide 431.5 H ABG Data Attestation: I personally reviewed and interpreted this ABG as follows: Interpretation: ABG reveals a significant AA gradient. There is no acid-base disturbance. ABG results: ABG 08/17/23 18:33 Specimen Type ART Sample Site L Radial pH 7.36 Bicarbonate Actual 27.1 H Total CO2 29 Base Excess 2 O2 Saturation 92 L O2 % 5.0 ABG pCO2 47.5 H ABG pO2 65 L Dimas Test Positive O2 Delivery Device Cannula Vent Mode Not entered Radiography Diagnostic Testing: Clinical Impression(s) from Imaging Studies Chest X-Ray 08/17/23 18:16 IMPRESSION: Bilateral patchy and streaky airspace opacities could represent infiltrate or atelectasis. Trace bilateral pleural effusions. Electronically Signed: Austin Mckeon MD at 18:30 EST , Management Discussion w/another healthcare provider: Hospitalist <Dr. Spencer Estrada MD - Last Filed: 08/17/23 21:06> Critical Care Time Critical Care Time: Yes Critical care time (excluding procedures): 30-74 minutes (33), Including time spent: (History, physical, documentation, independent interpretation of laboratory results and initiation of treatment for bilateral lower lobe pneumonia.), Discussing w/Patient &/or Family/Vice President For Instruction, Discussing w/Consultants and Arranging Admission or Transfer Discharge Plan Dx/Rx/DC Orders Clinical Impression: Elevated blood pressure reading, Acute bronchospasm, Acute hypoxemic respiratory failure, Pneumonia of both lower lobes, Acidosis, lactic Disposition Disposition: Acute Care Hospital [facility]
--- NOTE | 2023-08-17 18:16 | RAD_ITS ---
INDICATION: cough EXAMINATION/TECHNIQUE: X-RAY - XR Chest 2 Views COMPARISON: 11/07/2021 FINDINGS: LINES/DEVICES: None. LUNGS: Low lung volumes. Bilateral patchy and streaky airspace opacities. Small bilateral pleural effusions suspected. No pneumothorax. MEDIASTINUM AND CARDIOVASCULAR STRUCTURES: Cardiac silhouette not enlarged. Central airways and mediastinal contour are unremarkable. BONES AND SOFT TISSUES: Unremarkable. RAD/Chest PA and Lateral IMPRESSION: Bilateral patchy and streaky airspace opacities could represent infiltrate or atelectasis. Trace bilateral pleural effusions. Electronically Signed: Austin Mckeon MD at 18:30 EST ,
[2023-08-17 18:34] LABS: BNP,B-Type NATRIURETIC PEPTIDE 431.5 pg/mL (0-100)
[2023-08-17 18:38] LABS: Allen Test Positive; Base Excess 2 mmol/L (-2 to +2); Bicarbonate 27.1 mmol/L (22-26); Blood Gas Specimen Type ART; Mode Not entered; O2 Delivery Device Cannula; PO2 65 mmHG (75-100); SITE L Radial; SO2 92 % (95-99); Total Carbon Dioxide 29 mmol/L; pCO2 47.5 mmHg (35-45); pH 7.36 (7.35-7.45)
[2023-08-17] MEDS: Ceftriaxone 1 GM/50 ML BAG IV (19:00)
--- NOTE | 2023-08-17 19:11 | PCM.HP.STD ---
[facility] - General General Date of Admission: 08/17/23 Date of Service: 08/17/23 Chief Complaint: Shortness of breath HPI Narrative AARON GREEN, is a 83 F with a past medical history of essential hypertension, diabetes mellitus type II; of unknown control, obesity; with BMI of 38.6 this admission, history of coronary artery disease; on Plavix, history of CVA, history of uterine cancer; status post total hysterectomy, history of acute bronchitis; with associated bronchospasm, chronic bilateral lower extremity lymphedema and osteoarthritis who presents to [facility] ER complaining of shortness of breath. Mrs. Green reports her symptoms began approximately 2 weeks prior to admission with a gradual onset of dyspnea on exertion that progressed to shortness of breath at rest. She also admits to wheezing that is new and 2+ lower extremity edema that is chronic and she is only able to speak in 3-4 word sentences at this time. She denies associated fever, chills, nausea, vomiting, diarrhea, constipation, significant pain, recent significant travel or known sick contacts. In the ER she was noted to have a chest x-ray positive for bilateral patchy infiltrates with streaky airspace opacities suspicious for community-acquired pneumonia complicated by clinical evidence of acute bronchitis with bronchospasm and acute hypoxic respiratory insufficiency with the patient saturating ~90% on 4 L nasal cannula plus she was noted to have an elevated BNP of 431.5 pg/mL suspicious for acute exacerbation of CHF compounded by laboratory evidence of lactic acidosis of 2.4 mmol/L present on admission and hypokalemia of 3.3 mmol/L present on admission and she was then admitted to the PCU for ongoing care for stay that is expected to be greater than 48 hours. [facility] Medical History CVA (cerebral vascular accident) Diabetes HTN (hypertension) Uterine cancer Home Medications amlodipine 10 mg tablet 10 mg PO DAILY BLOOD PRESSURE 06/23/21 [History Last Taken 08/16/23] atorvastatin 40 mg tablet 40 mg PO DINNER CHOLESTEROL 06/23/21 [History Last Taken 08/16/23] insulin detemir U-100 100 unit/mL (3 mL) subcutaneous pen (Levemir FlexTouch U-100 Insulin) 60 unit subcut DAILY DIABETES 06/23/21 [History Last Taken 08/17/23] losartan 100 mg tablet 100 mg PO DAILY BLODOD PRESSURE 06/23/21 [History Last Taken 08/16/23] metoprolol tartrate 100 mg tablet 100 mg PO BID BLOOD PRESSURE 06/23/21 [History Last Taken 08/16/23] clopidogrel 75 mg tablet (Plavix) 75 mg PO DAILY BLOOD THINNER #30 tabs 06/24/21 [Rx Last Taken 08/16/23] aspirin 325 mg tablet 325 mg PO DAILY HEART HEALTH 04/09/22 [History Last Taken 08/16/23] albuterol sulfate 90 mcg/actuation aerosol inhaler 2 puff inhalation Q6H PRN SHORTNESS OF BREATH 08/17/23 [History Last Taken Unknown] metformin 500 mg tablet,extended release 24 hr 1,000 mg PO BID DIABETES 08/17/23 [History Last Taken 08/16/23] Allergy/AdvReac Type Severity Reaction Status Date / Time Tetanus Vaccines and Toxoid Allergy Other Verified 08/17/23 17:23 Surgical History H/O total hysterectomy Social History household members: spouse Smoking Status: Never smoker substance use type: does not use ROS ROS Narrative Review of systems: Constitutional: Patient admits to generalized weakness but denies fever or chills. Eyes: Patient denies visual changes. ENT: Patient denies runny nose or sore throat or ear pain. Cardiovascular: Patient denies chest pain, chest pressure or palpitations. Respiratory: Patient admits to dyspnea on exertion with wheezing. She denies cough. Gastrointestinal: Patient denies abdominal pain, nausea, vomiting, diarrhea or constipation. Genitourinary: Patient denies urinary frequency, dysuria, urinary retention or blood in urine. Musculoskeletal: Patient admits to generalized weakness and chronic lower extremity lymphedema. Neurological: Patient denies headache, syncope, presyncope, paresthesias, dizziness or other focal neurologic deficits. Skin: Patient denies any rashes, abrasions or lacerations. Psychiatric: Patient denies depression, anxiety, suicidal ideation or homicidal ideation. Hematologic: Negative for easy bleeding or easy bruisability. Allergies: Patient denies lip swelling, tongue swelling or rash. 14 point review of systems otherwise negative except for positives noted above in HPI. Vital Signs Vital Signs Vital Signs: 08/17/23 17:23 08/17/23 17:25 08/17/23 18:15 Temperature 97.1 F L Temperature Source Temporal Pulse Rate 94 100 Respiratory Rate 26 H 25 H Respiratory Effort Respiratory Depth Respiratory Pattern Normal Blood Pressure 178/150 H Blood Pressure Mean 159 Pulse Ox 84 92 Oxygen Delivery Method Room Air Nasal Cannula Oxygen Flow Rate (L/min) 4 08/17/23 18:15 08/17/23 17:49 08/17/23 17:50 Temperature Temperature Source Pulse Rate Respiratory Rate Respiratory Effort Short of Breath Respiratory Depth Shallow Respiratory Pattern Tachypnea Blood Pressure Blood Pressure Mean Pulse Ox 93 93 Oxygen Delivery Method Nasal Cannula Nasal Cannula Nasal Cannula Oxygen Flow Rate (L/min) 5 5 5 Weight Weight: 211 lb 3.245 oz Body Mass Index (BMI) 38.6 Physical Exam Const alert and oriented x3 Constitutional Narrative: Patient is obese and is showing signs of labored breathing. General Appearance: cooperative HEENT normocephalic, head/scalp atraumatic, hearing grossly normal bilaterally and moist oral mucous membranes Eyes PERRL, EOMs intact bilaterally and conjunctivae normal Neck no lymphadenopathy and supple Resp Resp Narrative: Diminished breath sounds throughout with scattered expiratory wheezes. Auscultation: wheezes Cardio regular rate and regular rhythm GI normal to inspection, nondistended, normoactive bowel sounds, soft to palpation, non-tender and non-distended GI Narrative: Obese. Extremity Extremity Narrative: Patient has 2+ lower extremity edema with no signs of gross trauma or deformity. Skin Skin Narrative: Patient has no evidence of rash at this time. Neuro oriented x3, CN's II-XII intact bilaterally, moves all extremities and no focal motor deficits Sensorium / Orientation: awake, alert, oriented to person, oriented to place and oriented to time Speech: speech normal Motor Exam: strength 5/5 throughout Psych affect normal Results Medical Records Data Attestation: I reviewed the patient's medical records Lab / Micro Data Attestation: I reviewed the patient's lab results. 08/17/23 17:39 08/17/23 17:39 Labs: Laboratory Results - last 24 hr 08/17/23 17:39: WBC 8.6, RBC 4.43, Hgb 14.0, Hct 43.0, MCV 97.1, MCH 31.6, MCHC 32.6, RDW Std Deviation 51.7 H, RDW Coeff of Maribel 14.4, Plt Count 288, MPV 9.9, Immature Gran % (Auto) 0.700, Neut % (Auto) 71.9 H, Lymph % (Auto) 16.2 L, [place] % (Auto) 9.1, Eos % (Auto) 1.3, Baso % (Auto) 0.8, Absolute Neuts (auto) 6.2, Absolute Lymphs (auto) 1.39, Nucleated RBC % 0, Sodium 141, Potassium 3.3 L, Chloride 108 H, Carbon Dioxide 28.0, Anion Gap 5, BUN 15, Creatinine 0.77, Estim Creat Clear Calc 33.12, Est GFR (MDRD) Af Amer 92, Est GFR (MDRD) Non-Af 76, BUN/Creatinine Ratio 19.5, Glucose 167 H, Calcium 9.7, Troponin I High Sens 18, B-Natriuretic Peptide 431.5 H Micro: Microbiology 08/17/23 17:42 Nasal Secretion SARS-CoV-2 & FLU Antigen (Rapid) - Final ABG Data ABG results: ABG 08/17/23 18:33 Specimen Type ART Sample Site L Radial pH 7.36 Bicarbonate Actual 27.1 H Total CO2 29 Base Excess 2 O2 Saturation 92 L O2 % 5.0 ABG pCO2 47.5 H ABG pO2 65 L Dimas Test Positive O2 Delivery Device Cannula Vent Mode Not entered Imagaing Radiology Impression Chest X-Ray 08/17/23 18:16 IMPRESSION: Bilateral patchy and streaky airspace opacities could represent infiltrate or atelectasis. Trace bilateral pleural effusions. Electronically Signed: Austin Mckeon MD at 18:30 EST Reading Location ID and State: [facility] / [place] Tel , Service support , [facility] Imaging Services [facility] [address] CTA Chest W/WO Contrast MR#: [id number] Acct: [id number] Name: AARON GREEN Rep #: [id number] : 1940 F 83 From: Matias Meier DO PCP: Dr. Cass Barney DO Status: ADM IN Study: CTA Chest W/WO Contrast Date of Exam: 08/17/23 Exam# [id number] Ordering Dr: Austin Wilkerson DO STUDY: CTA CHEST REASON FOR EXAM: Female, 83 years old. Shortness of breath, elevated d-dimer. RADIATION DOSAGE (If Supplied By Facility): CTDIvol = ( 12.48 ) mGy, DLP = ( 427.64 ) mGycm TECHNIQUE: The examination was performed with the intravenous administration of IV 100mL Isovue-370. Post-processing of the angiographic images was performed, with multiplanar reformation and 3D reconstruction. Individualized dose optimization techniques were used for this CT. COMPARISON: FINDINGS: Normal enhancement of the main pulmonary artery and right and left pulmonary arteries. Normal enhancement of the bilateral peripheral pulmonary arteries. There is no demonstrated pulmonary embolism. Normal thoracic aorta and visualized great vessels. There is no demonstrated aortic dissection. Normal heart and pericardium. Mild mediastinal adenopathy. Normal hilar regions. Normal visualized trachea and bronchi. The lungs are well expanded. Bilateral moderate pleural effusions with basilar consolidation/atelectasis. Normal chest wall structures. Normal osseous structures. Mild ascites in the visualized upper abdomen. Possible cirrhosis. CT/CTA Chest W/WO Contrast IMPRESSION: No demonstrated pulmonary embolism or arterial dissection. Mild mediastinal adenopathy. Bilateral moderate pleural effusions with basilar consolidation/atelectasis. Ascites. Electronically Signed: Matias Meier DO at 22:44 EST Reading Location ID and State: [facility] / [place] Tel [phone], Service support , CC: Dr. Austin Wilkerson DO; Dr. Cass Barney DO ~ Hospital Admitting Clerk: Signed Assessment & Plan Assessment/Plan (1) Pneumonia of both lower lobes: QUALIFIERS: Pneumonia type: due to unspecified organism Qualified Code(s): J18.9 - Pneumonia, unspecified organism (2) Acute bronchospasm: (3) Acute heart failure: QUALIFIERS: Heart failure type: unspecified Qualified Code(s): I50.9 - Heart failure, unspecified (4) Acute respiratory insufficiency: PLAN: Plan 1. Bilateral pneumonia; likely community-acquired in origin with an elevated D-dimer of 1.73 present on admission - Admit to PCU. Continue broad-spectrum antibiotics and await culture and sensitivity data. Give Tylenol as needed for fever or pain. Give Mucinex scheduled twice daily to mobilize secretions. CTA of chest is negative for PE but positive for bilateral pneumonia with effusions. 2. Acute bronchospasm with wheezing due to #1 - Give Solu-Medrol 125 mg IV once and then continue with 40 mg IV twice daily (with typical dose reduced in light of her diabetes) until bronchospasm resolves. Also give scheduled and as needed nebulizers. 3. Acute exacerbation of CHF (of unknown type); evidenced by elevated BNP of 431.5 pg/mL and 2+ lower extremity edema plus bilateral trace effusions on chest x-ray plus uncontrolled hypertension of ~175/100 mmHg present on admission complicating #1 & #2 - Start Lasix 40 mg IV daily plus supplemental potassium and magnesium. Serialize troponin. Check echocardiogram to evaluate left ventricular ejection fraction. 4. Acute hypoxic respiratory insufficiency with lactic acidosis of 2.4 mmol/L present on admission arising from #1 - #3 - Serialized lactates to ensure improvement with second lactate rising to 3 mmol/L. Wean supplemental oxygen as tolerated. 5. Obesity; with BMI of 38.6 present on admission in the setting of suspected obstructive sleep apnea compounding #1 - #4 - Weight loss will be recommended. Check TSH. Start CPAP if patient is able to tolerate. 6. Diabetes mellitus type II; of unknown control - ADA/Cardiac diet. Fingerstick blood sugars before every meal and at bedtime plus sliding scale insulin. Check hemoglobin A1c this admission to objectively evaluate quality of diabetic control. Hold metformin in light of lactic acidosis. 7. History of coronary artery disease; on Plavix - Resume Plavix as previous. 8. History of CVA - Noted. 9. History of uterine cancer; status post total hysterectomy - Noted. 10. Chronic bilateral lower extremity lymphedema - Place compression hose and elevate lower extremities. 11. Osteoarthritis - Stable. Give Tylenol as needed pain or fever. 12. DVT prophylaxis - Patient given one full dose of Lovenox until the results of her lower extremity doppler are available. Total time: Approximately 55 minutes. Charges/Coding Visit Charges Inpatient E&M: 73057 Init Hosp L2
[2023-08-17 19:16] LABS: Lactic Acid 2.4 mmol/L (0.4-1.9)
[2023-08-17] MEDS: Azithromycin 500 MG in Dextrose 5%-Water (250mL Bag) 250 ML 250 MG IV (19:31)
--- NOTE | 2023-08-17 19:45 | ECHOD_ITS ---
Reason For Study: CHF Procedure This was a 2D Doppler, Color Flow transthoracic echocardiogram. Exam performed portable in patient room. Left Ventricle Normal LV size. Mild eccentric left ventricular hypertrophy. Left ventricular systolic function is normal. The estimated ejection fraction is 60-65 %. Stage 2 diastolic dysfunction. Right Ventricle Normal RV size. Normal systolic function. Atria The left atrium is mildly enlarged. Normal right atrium. Mitral Valve Moderate mitral annular calcification. The mitral valve chordae are thickened and/or calcified. Mild mitral valve stenosis. Mean transmitral valve gradient 6 mmHg. Moderate (2+) mitral valve insufficiency. Tricuspid Valve Normal tricuspid valve. Mild to moderate (1-2+) tricuspid valve insufficiency. Right ventricular systolic pressure estimated to be 74 mmHg. Severe pulmonary hypertension. Aortic Valve Trisinus/trileaflet aortic valve. Mild focal aortic valve calcification. Mild aortic stenosis. Peak aortic valve gradient 16 mmHg. Mean aortic valve gradient 9 mmHg. Pulmonic Valve The pulmonic valve is not well visualized. Trivial pulmonic valve insufficiency. Pericardium/Pleural Trivial pericardial effusion. There are no echocardiographic indications of cardiac tamponade. There is a left pleural effusion. MMode/2D Measurements & Calculations LVIDd: 5.4 cm IVSd: 1.3 cm Ao root diam: 2.4 cm LVIDs: 2.8 cm LVPWd: 0.90 cm LA dimension: 5.0 cm RVDd: 4.3 cm FS: 48.7 % LAV(MOD-bp): 79.4 ml LVAd ap4: 27.3 cm2 SV(MOD-sp4): 60.7 ml LAV(MOD-bp) Indexed: 42.4 ml/m2 LVLd ap4: 7.6 cm LAV(MOD-sp2): 69.1 ml EDV(MOD-sp4): 82.5 ml LAV(MOD-sp4): 89.9 ml EDV(sp4-el): 83.1 ml LVAs ap4: 12.2 cm2 LVLs ap4: 6.0 cm ESV(MOD-sp4): 21.8 ml ESV(sp4-el): 20.9 ml EF(MOD-sp4): 73.6 % EF(sp4-el): 74.9 % SV(sp4-el): 62.3 ml LA A4 area: 25.9 cm2 RA A4 area: 16.0 cm2 Time Measurements MV dec time: 0.17 sec Doppler Measurements & Calculations MV E max kumar: 174.2 cm/sec Lat Peak E' Kumar: 8.5 cm/sec Med Peak E' Kumar: 6.5 cm/sec MV A max kumar: 131.0 cm/sec E/E' lat: 20.4 E/E' med: 26.9 MV E/A: 1.3 MV V2 max: 198.9 cm/sec MV P1/2t max kumar: 202.8 cm/sec Ao V2 max: 201.6 cm/sec MV max P.8 mmHg MV P1/2t: 61.1 msec Ao max P.3 mmHg MV V2 mean: 112.0 cm/sec MV dec slope: 972.1 cm/sec2 Ao V2 mean: 138.9 cm/sec MV mean P.0 mmHg Ao mean P.8 mmHg MV V2 VTI: 55.0 cm MVA(P1/2t): 3.6 cm2 Ao V2 VTI: 48.7 cm AV (velocity ratio): 0.54 LV V1 max: 112.7 cm/sec MR max kumar: 651.1 cm/sec PA V2 max: 105.8 cm/sec LV V1 max P.1 mmHg MR max P.6 mmHg LV V1 mean P.0 mmHg MR mean kumar: 477.7 cm/sec LV V1 mean: 82.6 cm/sec MR mean P.4 mmHg LV V1 VTI: 26.2 cm MR VTI: 210.1 cm TR max kumar: 407.4 cm/sec TR max P.4 mmHg ECHO/Echo Complete Interpretation Summary Stage 2 diastolic dysfunction. The left atrium is mildly enlarged. Moderate mitral annular calcification. Mild mitral valve stenosis. Moderate (2+) mitral valve insufficiency. Severe pulmonary hypertension. Mild aortic stenosis. The estimated ejection fraction is 60-65 %. Ordering Physician: Austin Wilkerson Referring Physician: Cass Banrey M.D. Performed By: Wilfrid Villeda RCS
[2023-08-17] MEDS: Furosemide 40 MG/4 ML Vial IV (21:22)
[2023-08-17] MEDS: Magnesium Chloride 64 MG Delay Rel.Tablet 128 MG PO (21:28)
[2023-08-17] MEDS: Metoprolol Tartrate 100 MG Tablet PO (21:33)
[2023-08-17 21:40] LABS: D-Dimer Quantitative (DVT/PE) 1.73 FEU/ug/m (0.27-0.49)
[2023-08-17] MEDS: Cholecalciferol (Vit D3) 125 MCG CAPSULE (5,000 UNITS) PO (21:47)
[2023-08-17] MEDS: guaiFENesin 1,200 MG Tablet 1200 MG PO (21:47)
--- NOTE | 2023-08-17 21:48 | CT_ITS ---
STUDY: CTA CHEST REASON FOR EXAM: Female, 83 years old. Shortness of breath, elevated d-dimer. RADIATION DOSAGE (If Supplied By Facility): CTDIvol = ( 12.48 ) mGy, DLP = ( 427.64 ) mGycm TECHNIQUE: The examination was performed with the intravenous administration of IV 100mL Isovue-370. Post-processing of the angiographic images was performed, with multiplanar reformation and 3D reconstruction. Individualized dose optimization techniques were used for this CT. COMPARISON: FINDINGS: Normal enhancement of the main pulmonary artery and right and left pulmonary arteries. Normal enhancement of the bilateral peripheral pulmonary arteries. There is no demonstrated pulmonary embolism. Normal thoracic aorta and visualized great vessels. There is no demonstrated aortic dissection. Normal heart and pericardium. Mild mediastinal adenopathy. Normal hilar regions. Normal visualized trachea and bronchi. The lungs are well expanded. Bilateral moderate pleural effusions with basilar consolidation/atelectasis. Normal chest wall structures. Normal osseous structures. Mild ascites in the visualized upper abdomen. Possible cirrhosis. CT/CTA Chest W/WO Contrast IMPRESSION: No demonstrated pulmonary embolism or arterial dissection. Mild mediastinal adenopathy. Bilateral moderate pleural effusions with basilar consolidation/atelectasis. Ascites. Electronically Signed: Matias Meier DO at 22:44 EST ,
--- NOTE | 2023-08-17 22:54 | VDLE_ITS ---
Reason For Study: Elevated D-dimer RIGHT LEFT GSV is normal. GSV is normal. CFV is compressible, spontaneous, phasic, CFV is compressible, spontaneous, phasic, competent and demonstrates normal competent, and demonstrates normal augmentation. augmentation. FV is compressible, spontaneous, phasic, FV is compressible, spontaneous, phasic, competent and demonstrates normal competent and demonstrates normal augmentation. augmentation. POP V is compressible, spontaneous, phasic, POP V is compressible, spontaneous, phasic, competent and demonstrates normal competent and demonstrates normal augmentation. augmentation. T/P Trunk is compressible. T/P Trunk is compressible. PTV is compressible. PTV is compressible. RT PerV is compressible. LT PerV is compressible. Procedure This is a venous duplex using B-mode, color flow and spectral Doppler. Exam performed portable in patient room. A preliminary report was called and/or faxed to Anabelle SMITH. VL/Venous Duplex US - Pee Extrem Interpretation Summary Deep veins of the bilateral lower extremities are patent and compressible segme ntally. There is no evidence of bilateral lower extremity deep vein thrombosis. The bilateral great saphenous veins appear patent and compressible segmentally. Ordering Physician: Austin Wilkerson Referring Physician: Cass Barney M.D. Performed By: Bouchra Birch RVT
[2023-08-17 22:57] LABS: Reflex Lactate? Y
[2023-08-17] MEDS: Enoxaparin 100 MG/ML Syringe SC (23:14)
[2023-08-18] VITALS (8 sets, daily range): BP systolic 139–159; BP diastolic 59–63; PULSE 70–81; RESP 16–18; TEMP 36.4–36.7; O2SAT 92–96
--- NOTE | 2023-08-18 05:25 | RAD_ITS ---
EXAM: XR CHEST, 1 VIEW CLINICAL INDICATION: Bilateral PNA amd AE CHF. TECHNIQUE: Frontal view of the chest. COMPARISON: Previous chest radiographs of 08/17/2023 and 11/07/2021. FINDINGS: LUNGS AND PLEURAL SPACES: There is increasing opacification of both lung bases due to enlarging bilateral pleural effusions and worsening bibasilar consolidation; both hemidiaphragms are now silhouetted. Greater blunting of the costophrenic angles due to the interval enlargement of the bilateral pleural effusions. Mild patchy airspace disease has developed within the right midlung. No pulmonary interstitial thickening. No pneumothorax. HEART: Unremarkable. Negative is present. Stable pulmonary vasculature with minimal cephalization of pulmonary blood flow. MEDIASTINUM: Stable elongation and calcification of the thoracic aorta. BONES/JOINTS: No acute osseous abnormality. SOFT TISSUES: Unremarkable. RAD/Chest 1 View (Portable) IMPRESSION: Moderate bilateral pleural effusions which have enlarged since the prior study. Worsening bibasilar consolidation with development of mild patchy airspace disease in the right midlung, secondary to worsening atelectasis and/or pneumonia. Electronically Signed: Rupert Arizmendi MD at 6:25 EST ,
[2023-08-18 06:04] LABS: BNP,B-Type NATRIURETIC PEPTIDE 671.2 pg/mL (0-100)
[2023-08-18 06:06] LABS: Bedside Glucose 283 mg/dL (74-106)
[2023-08-18] MEDS: Insulin Lispro 100 UNIT/ML INSULN.PEN SC ×4 (06:39→21:58)
[2023-08-18 06:52] LABS: Bedside Glucose 255 mg/dL (74-106)
[2023-08-18 08:11] LABS: Absolute Lymphocyte Count 0.59 X10^3/uL (0.83-4.51); Absolute Neutrophil Count 4.2 X10^3/uL (2.0-7.7); Basophil# 0.03 X10^3/uL; Basophil% 0.6 % (0-1); Hematocrit 39.3 % (37-47); Hemoglobin 12.5 g/dL (12.0-15.0); Lymphocyte # 0.59 X10^3/ul (0.83-4.51); Mean Corp Hgb Conc 31.8 g/dL (32-36); Mean Corpuscular Hgb 31.1 pg (27.0-32.0); Mean Corpuscular Volume 97.8 fL (81-99); Mean Platelet Vol. 10.1 fl (6.2-12.0); NRBC Flagged by Analyzer 0 % (0-5); Neutrophil # 4.15 X10^3/uL (2.7-7.7); Neutrophil % 84.8 % (47-70); POSITIVE DIFFERENTIAL YES; Platelet Count 237 K/mm3 (150-450); RBC Distribution Width CV 14.2 % (11.6-14.6); RBC Distribution Width SD 51.6 fl (35.1-43.9); Red Blood Count 4.02 M/mm3 (4.2-5.4); White Blood Count 4.9 K/mm3 (4.4-11.0)
[2023-08-18] MEDS: Potassium Chloride Oral Tablet 20 MEQ PO ×2 (08:11→17:00)
[2023-08-18] MEDS: Ascorbic Acid 500 MG Tablet 1000 MG PO ×2 (08:11→17:01)
[2023-08-18] MEDS: Aspirin 81 MG TAB.CHEW PO (08:11)
[2023-08-18 08:13] LABS: Differential Indicated SCAN CRITERIA MET
--- NOTE | 2023-08-18 08:20 | PN.HOSP_ITS ---
Subjective Subjective Breathing okay at present. States that the swelling in her legs are slightly better. Objective Data Objective Data Vital Signs: Vital Signs Temp Pulse Resp BP Pulse Ox O2 Del Method O2 Flow Rate 36.4 C L 74 18 159/60 H 93 Nasal Cannula 5 08/18/23 03:39 08/18/23 03:39 08/18/23 03:39 08/18/23 03:39 08/18/23 03:39 08/18/23 08:03 08/18/23 08:03 Oxygen Flow Rate (L/min) 5 Oxygen Delivery Method Nasal Cannula Weight: 88.7 kg Body Mass Index (BMI) 35.7 Intake & Output: Intake and Output for Last 24 Hours 08/16/23 08/17/23 08/18/23 23:59 23:59 23:59 Intake Total 505 / 505 200 / 200 Output Total 0 / 0 Balance 505 / 505 200 / 200 Lab / Micro Data 08/18/23 08:01 08/18/23 08:01 Labs: Laboratory Results - last 24 hr 08/17/23 17:39: WBC 8.6, RBC 4.43, Hgb 14.0, Hct 43.0, MCV 97.1, MCH 31.6, MCHC 32.6, RDW Std Deviation 51.7 H, RDW Coeff of Maribel 14.4, Plt Count 288, MPV 9.9, Immature Gran % (Auto) 0.700, Neut % (Auto) 71.9 H, Lymph % (Auto) 16.2 L, [place] % (Auto) 9.1, Eos % (Auto) 1.3, Baso % (Auto) 0.8, Absolute Neuts (auto) 6.2, Absolute Lymphs (auto) 1.39, Nucleated RBC % 0, D-Dimer Quant (PE/DVT) 1.73 H*, Sodium 141, Potassium 3.3 L, Chloride 108 H, Carbon Dioxide 28.0, Anion Gap 5, BUN 15, Creatinine 0.77, Estim Creat Clear Calc 33.12, Est GFR (MDRD) Af Amer 92, Est GFR (MDRD) Non-Af 76, BUN/Creatinine Ratio 19.5, Glucose 167 H, Calcium 9.7, Troponin I High Sens 18, B-Natriuretic Peptide 431.5 H 08/17/23 18:45: Lactic Acid 2.4 H* 08/17/23 23:12: Hemoglobin A1c 7.0 H, Lactic Acid 3.0 H* 08/18/23 00:15: POC Glucose 283 H 08/18/23 04:50: B-Natriuretic Peptide 671.2 H 08/18/23 06:33: POC Glucose 255 H 08/18/23 08:01: WBC 4.9, RBC 4.02 L, Hgb 12.5, Hct 39.3, MCV 97.8, MCH 31.1, MCHC 31.8 L, RDW Std Deviation 51.6 H, RDW Coeff of Maribel 14.2, Plt Count 237, MPV 10.1, Immature Gran % (Auto) 0.600, Neut % (Auto) 84.8 H, Lymph % (Auto) 12.0 L, [place] % (Auto) 2.0, Eos % (Auto) 0.0, Baso % (Auto) 0.6, Absolute Neuts (auto) 4.2, Absolute Lymphs (auto) 0.59 L, Nucleated RBC % 0 Micro: Microbiology 08/17/23 20:10 Mucosa - Nasopharyngeal Respiratory Panel (PCR) - Final 08/17/23 17:42 Nasal Secretion SARS-CoV-2 & FLU Antigen (Rapid) - Final ABG Data ABG results: ABG 08/17/23 18:33 Specimen Type ART Sample Site L Radial pH 7.36 Bicarbonate Actual 27.1 H Total CO2 29 Base Excess 2 O2 Saturation 92 L O2 % 5.0 ABG pCO2 47.5 H ABG pO2 65 L Dimas Test Positive O2 Delivery Device Cannula Vent Mode Not entered Radiography Diagnostic Testing: Radiology Impression Chest X-Ray 08/17/23 18:16 IMPRESSION: Bilateral patchy and streaky airspace opacities could represent infiltrate or atelectasis. Trace bilateral pleural effusions. Electronically Signed: Austin Mckeon MD at 18:30 EST Reading Location ID and State: [facility] / [place] Tel , Service support , Chest CTA 08/17/23 21:48 IMPRESSION: No demonstrated pulmonary embolism or arterial dissection. Mild mediastinal adenopathy. Bilateral moderate pleural effusions with basilar consolidation/atelectasis. Ascites. Electronically Signed: Matias Meier DO at 22:44 EST , Chest X-Ray 08/18/23 05:25 IMPRESSION: Moderate bilateral pleural effusions which have enlarged since the prior study. Worsening bibasilar consolidation with development of mild patchy airspace disease in the right midlung, secondary to worsening atelectasis and/or pneumonia. Electronically Signed: Rupert Arizmendi MD at 6:25 EST , Physical Exam Const alert and no apparent distress Resp normal respiratory effort Resp Narrative: Diminished in the bases bilaterally. Bilateral basilar crackles. Cardio regular rate, regular rhythm, S1 normal heart sound and S2 normal heart sound GI normal to inspection, nondistended, normoactive bowel sounds, soft to palpation, non-tender and non-distended Extremity normal to inspection Psych affect normal Assessment & Plan Assessment/Plan (1) Pneumonia of both lower lobes: QUALIFIERS: Pneumonia type: due to unspecified organism Qualified Code(s): J18.9 - Pneumonia, unspecified organism (2) Acute bronchospasm: (3) Acute heart failure: QUALIFIERS: Heart failure type: unspecified Qualified Code(s): I50.9 - Heart failure, unspecified (4) Acute respiratory insufficiency: PLAN: Plan Acute hypoxic respiratory failure * Present on admission with a pulse ox of 84% on room air with tachypnea with respiratory rate of 26. ABG showed pO2 of 65. * Unclear if this is related with pneumonia favoring this actually being more related with CHF exacerbation. * Wean oxygen as tolerated * Patient on empiric antibiotics with ceftriaxone and azithromycin. * Respiratory panel negative, COVID-19 and influenza negative. Strep and Legionella pending. If the infectious workup comes back all negative then wo uld discontinue antibiotics. Acute heart failure with preserved ejection fraction. * Bilateral pleural effusions as well. EF of 60% on 2D echocardiogram from June 24, 2021. * Echo shows an EF of 60-65%. Severe pulm hypertension. Mild aortic stenosis. * Continue with IV furosemide 40 mg twice daily. Chronic conditions: * Obesity; with BMI of 38.6 present on admission in the setting of suspected obstructive sleep apnea compounding #1 - #4 - Weight loss will be recommended. * Diabetes mellitus type II; of unknown control - ADA/Cardiac diet. Fingerstick blood sugars before every meal and at bedtime plus sliding scale insulin. Check hemoglobin A1c this admission to objectively evaluate quality of diabetic control. Hold metformin in light of lactic acidosis. * History of coronary artery disease; on Plavix - Resume Plavix as previous. * History of CVA - Noted. * History of uterine cancer; status post total hysterectomy - Noted. * Chronic bilateral lower extremity lymphedema - Place compression hose and elevate lower extremities. * Osteoarthritis - Stable. Give Tylenol as needed pain or fever. DVT prophylaxis - enoxaparin Charges/Coding Visit Charges Inpatient E&M: 62018 Subs Hosp L2
[2023-08-18 08:30] LABS: ALB/GLOB Ratio 0.8 RATIO (0.9-2.4); AST(SGOT) 16 U/L (15-37); Alanine Aminotransfer ALT/SGPT 19 U/L (13-56); Albumin, Serum 2.9 g/dL (3.2-5.0); Alkaline Phosphatase 103 U/L (45-117); Anion Gap 5 (5-15); BUN 20 mg/dL (7-18); BUN/Creat Ratio 22.2 RATIO (10-20); Calcium,Total 9.1 mg/dL (8.5-10.1); Chloride 107 mmol/L (98-107); EST Glomerular Filtration Rate 63 mL/min (>60); Est Glom Filt Rate - Afr Amer 76 mL/min (>60); Globulin 3.6 g/dL (2.2-4.2); Glucose 254 mg/dL (74-106); Protein, Total 6.5 g/dL (6.4-8.2); Sodium Level 141 mmol/L (136-145)
[2023-08-18 08:57] LABS: Blood Gas Specimen Type VEN; O2 Delivery Device Cannula; SITE Not entered; VBG BASE EXCESS 2 mmol/L (-1.0-3.5); VBG Bicarbonate 27 mmol/L (22-26); VBG PO2 209 mmHg (25-40); VBG SO2 100 % (50-70); VBG TCO2 28 mmol/L (23-33); VBG pH 7.38 (7.32-7.42)
--- NOTE | 2023-08-18 10:30 | CASEMGMT ---
RN TREY Face to Face with patient for initial transition planning/care coordination assessment. RN CM introduced self and role at [facility]. Patient lying in bed, alert and oriented, son at bedside. Patient willing to participate in assessment and is able to answer all questions appropriately. Care providers, pharmacy, and demographics verified. Patient wishes to discharge home, denies need for home health at this time. Patient states she has no further needs or concerns at this time. CM to follow for discharge planning needs that may arise. PCP: [facility] Specialists: none Preferred Pharmacy: [facility] Insurance: [employer] MCR changing to [place] MCR Prescription Benefit: yes Living Will/HPOA: none LNOK: son Living Arrangements: Patient lives alone in a single story home with 2 steps and railing to enter the home. Patient is independent at home. Transportation: self, son DME/HHC: Patient has raised toilet at home. Will monitor for home oxygen at discharge, prefers [employer]. No previous HHC or SNF Disposition Plan: Patient to discharge home with family support and follow-up plans in place. Will monitor for home oxygen at discharge. Bouchra DODGE, RN, CM
[2023-08-18] MEDS: Losartan Potassium 100 MG Tablet PO (10:48)
[2023-08-18] MEDS: Insulin Glargine-YFGN 100 UNIT/ML Pen 60 UNIT SC (10:48)
[2023-08-18] MEDS: Furosemide 40 MG/4 ML Vial IV ×2 (10:49→17:02)
[2023-08-18] MEDS: Metoprolol Tartrate 100 MG Tablet PO ×2 (10:49→21:49)
[2023-08-18] MEDS: Magnesium Chloride 64 MG Delay Rel.Tablet 128 MG PO (10:50)
[2023-08-18] MEDS: amLODIPine 10 MG Tablet PO (10:50)
[2023-08-18] MEDS: guaiFENesin 1,200 MG Tablet 1200 MG PO ×2 (10:50→21:50)
[2023-08-18] MEDS: Zinc Sulfate 50 mg zinc (220 mg) ORAL capsule PO (10:50)
[2023-08-18] MEDS: Cholecalciferol (Vit D3) 125 MCG CAPSULE (5,000 UNITS) PO (10:50)
[2023-08-18] MEDS: Enoxaparin 40 MG/0.4 ML Syringe SC (10:50)
[2023-08-18] MEDS: Clopidogrel Bisulfate 75 MG Tablet PO (10:50)
[2023-08-18] MEDS: 0.9% Saline Lock 10 ML Syringe IV ×6 (10:55→22:55)
[2023-08-18 11:28] LABS: Bedside Glucose 316 mg/dL (74-106)
[2023-08-18] MEDS: Atorvastatin Calcium 40 MG Tablet PO (17:01)
[2023-08-18 17:36] LABS: Bedside Glucose 256 mg/dL (74-106)
[2023-08-18] MEDS: Ceftriaxone 1 GM/50 ML BAG IV (21:40)
[2023-08-18] MEDS: 0.9% Normal Saline (250mL Bag) 250 ML 15 ML IV (21:41)
[2023-08-18 22:21] LABS: Bedside Glucose 350 mg/dL (74-106)
[2023-08-18] MEDS: Azithromycin 500 MG in Dextrose 5%-Water (250mL Bag) 250 ML 250 MG IV (22:50)
[2023-08-19] VITALS (10 sets, daily range): BP systolic 141–160; BP diastolic 56–67; PULSE 57–64; RESP 16–18; TEMP 35.8–36.9; O2SAT 92–95
[2023-08-19 05:34] LABS: Absolute Lymphocyte Count 0.63 X10^3/uL (0.83-4.51); Absolute Neutrophil Count 6.4 X10^3/uL (2.0-7.7); Basophil# 0.01 X10^3/uL; Basophil% 0.1 % (0-1); Hematocrit 36.4 % (37-47); Hemoglobin 11.4 g/dL (12.0-15.0); Lymphocyte # 0.63 X10^3/ul (0.83-4.51); Lymphocyte % 8.4 % (19-41); Mean Corp Hgb Conc 31.3 g/dL (32-36); Mean Corpuscular Hgb 31.1 pg (27.0-32.0); Mean Corpuscular Volume 99.5 fL (81-99); Mean Platelet Vol. 10.8 fl (6.2-12.0); Monocyte# 0.43 X10^3/uL; Monocyte% 5.7 % (0-10); NRBC Flagged by Analyzer 0 % (0-5); Neutrophil % 85.4 % (47-70); Platelet Count 248 K/mm3 (150-450); RBC Distribution Width CV 14.3 % (11.6-14.6); RBC Distribution Width SD 52.9 fl (35.1-43.9); Red Blood Count 3.66 M/mm3 (4.2-5.4); White Blood Count 7.5 K/mm3 (4.4-11.0)
[2023-08-19 05:48] LABS: Anion Gap 6 (5-15); BUN 34 mg/dL (7-18); BUN/Creat Ratio 31.5 RATIO (10-20); Calcium,Total 8.6 mg/dL (8.5-10.1); Chloride 107 mmol/L (98-107); Creatinine, Serum 1.08 mg/dL (0.55-1.02); EST Glomerular Filtration Rate 51 mL/min (>60); Est Glom Filt Rate - Afr Amer 62 mL/min (>60); Estimated Creatinine Clearance 30.67 ml/min; Glucose 293 mg/dL (74-106); Potassium 4.3 mmol/L (3.5-5.1); Sodium Level 141 mmol/L (136-145)
[2023-08-19 06:24] LABS: Bedside Glucose 289 mg/dL (74-106)
[2023-08-19] MEDS: Insulin Lispro 100 UNIT/ML INSULN.PEN SC ×4 (06:27→21:32)
--- NOTE | 2023-08-19 06:59 | PN.HOSP_ITS ---
Subjective Subjective No new changes overnight. Still requiring 6 L of oxygen which is increased from yesterday. Objective Data Objective Data Vital Signs: Vital Signs Temp Pulse Resp BP Pulse Ox O2 Del Method O2 Flow Rate 36.3 C L 57 L 18 141/60 H 92 Nasal Cannula 6 08/19/23 04:00 08/19/23 04:00 08/19/23 04:00 08/19/23 04:00 08/19/23 04:00 08/19/23 04:00 08/19/23 04:00 Oxygen Flow Rate (L/min) 6 Oxygen Delivery Method Nasal Cannula Weight: 88.7 kg Body Mass Index (BMI) 35.7 Intake & Output: Intake and Output for Last 24 Hours 08/17/23 08/18/23 08/19/23 23:59 23:59 23:59 Intake Total 505 / 505 1210 / 1210 120 / 120 Output Total 0 / 0 0 / 0 500 / 500 Balance 505 / 505 1210 / 1210 -380 / -380 Lab / Micro Data 08/19/23 05:00 08/19/23 05:00 Labs: Laboratory Results - last 24 hr 08/18/23 08:01: WBC 4.9, RBC 4.02 L, Hgb 12.5, Hct 39.3, MCV 97.8, MCH 31.1, MCHC 31.8 L, RDW Std Deviation 51.6 H, RDW Coeff of Maribel 14.2, Plt Count 237, MPV 10.1, Immature Gran % (Auto) 0.600, Neut % (Auto) 84.8 H, Lymph % (Auto) 12.0 L, [place] % (Auto) 2.0, Eos % (Auto) 0.0, Baso % (Auto) 0.6, Absolute Neuts (auto) 4.2, Absolute Lymphs (auto) 0.59 L, Nucleated RBC % 0, Differential Comment COMMENT, Sodium 141, Potassium 4.0, Chloride 107, Carbon Dioxide 29.0, Anion Gap 5, BUN 20 H, Creatinine 0.90, Estim Creat Clear Calc 36.80, Est GFR (MDRD) Af Amer 76, Est GFR (MDRD) Non-Af 63, BUN/Creatinine Ratio 22.2 H, Glucose 254 H, Calcium 9.1, Total Bilirubin 0.90, AST 16, ALT 19, Alkaline Phosphatase 103, Total Protein 6.5, Albumin 2.9 L, Globulin 3.6, Albumin/Globulin Ratio 0.8 L 08/18/23 10:39: POC Glucose 316 H 08/18/23 16:51: POC Glucose 256 H 08/18/23 21:57: POC Glucose 350 H 08/19/23 05:00: WBC 7.5, RBC 3.66 L, Hgb 11.4 L, Hct 36.4 L, MCV 99.5 H, MCH 31.1, MCHC 31.3 L, RDW Std Deviation 52.9 H, RDW Coeff of Maribel 14.3, Plt Count 248, MPV 10.8, Immature Gran % (Auto) 0.400, Neut % (Auto) 85.4 H, Lymph % (Auto) 8.4 L, [place] % (Auto) 5.7, Eos % (Auto) 0.0, Baso % (Auto) 0.1, Absolute Neuts (auto) 6.4, Absolute Lymphs (auto) 0.63 L, Nucleated RBC % 0, Sodium 141, Potassium 4.3, Chloride 107, Carbon Dioxide 28.0, Anion Gap 6, BUN 34 H, Creatinine 1.08 H, Estim Creat Clear Calc 30.67, Est GFR (MDRD) Af Amer 62, Est GFR (MDRD) Non-Af 51 L, BUN/Creatinine Ratio 31.5 H, Glucose 293 H, Calcium 8.6 08/19/23 06:06: POC Glucose 289 H Micro: Microbiology 08/18/23 04:00 Urine, Clean Catch Legionella Antigen - Final 08/18/23 04:00 Urine, Clean Catch Streptococcus pneumoniae Antigen (M - Final 08/17/23 20:10 Mucosa - Nasopharyngeal Respiratory Panel (PCR) - Final 08/17/23 17:42 Nasal Secretion SARS-CoV-2 & FLU Antigen (Rapid) - Final ABG Data ABG results: ABG 08/18/23 08:52 Specimen Type MALAIKA Sample Site Not entered O2 % 5.0 VBG pH 7.38 VBG pO2 209 H VBG HCO3 27 H VBG Total CO2 28 VBG O2 Sat (Calc) 100 H VBG Base Excess 2 POC Mix VBG pCO2 Pt Tmp 46.0 O2 Delivery Device Cannula Radiography Diagnostic Testing: Radiology Impression Echocardiogram 08/17/23 19:45 Interpretation Summary Stage 2 diastolic dysfunction. The left atrium is mildly enlarged. Moderate mitral annular calcification. Mild mitral valve stenosis. Moderate (2+) mitral valve insufficiency. Severe pulmonary hypertension. Mild aortic stenosis. The estimated ejection fraction is 60-65 %. Ordering Physician: Austin Wilkerson Referring Physician: Cass Barney M.D. Performed By: Wilfrid Villeda RCS Venous Doppler Study 08/17/23 22:54 Interpretation Summary Deep veins of the bilateral lower extremities are patent and compressible segmentally. There is no evidence of bilateral lower extremity deep vein thrombosis. The bilateral great saphenous veins appear patent and compressible segmentally. Ordering Physician: Austin Wilkerson Referring Physician: Cass Barney M.D. Performed By: Bouchra Birch RVT Physical Exam Const alert and no apparent distress HEENT head/scalp atraumatic and moist oral mucous membranes Resp Resp Narrative: Diminished in the bases with crackles in the bases. Cardio regular rate, regular rhythm, S1 normal heart sound and S2 normal heart sound GI normal to inspection, nondistended, normoactive bowel sounds, soft to palpation, non-tender and non-distended Extremity normal to inspection General Extremity: edema bilateral lower extremity Details: moderate Neuro Sensorium / Orientation: awake and alert Assessment & Plan Assessment/Plan (1) Pneumonia of both lower lobes: QUALIFIERS: Pneumonia type: due to unspecified organism Qualified Code(s): J18.9 - Pneumonia, unspecified organism (2) Acute bronchospasm: (3) Acute heart failure: QUALIFIERS: Heart failure type: unspecified Qualified Code(s): I50.9 - Heart failure, unspecified (4) Acute respiratory insufficiency: PLAN: Plan Acute hypoxic respiratory failure * Present on admission with a pulse ox of 84% on room air with tachypnea with respiratory rate of 26. ABG showed pO2 of 65. * Unclear if this is related with pneumonia favoring this actually being more related with CHF exacerbation. * Wean oxygen as tolerated * Patient on empiric antibiotics with ceftriaxone and azithromycin. * Respiratory panel negative, COVID-19 and influenza negative. Strep and Legionella negative. If the infectious workup comes back all negative then would discontinue antibiotics. * Given the lack of significant progress despite antibiotics and diuretics, will repeat chest x-ray. For pleural effusions seem to be ongoing or worsening, may need to consider thoracentesis. Acute heart failure with preserved ejection fraction. * Bilateral pleural effusions as well. EF of 60% on 2D echocardiogram from June 24, 2021. * Echo shows an EF of 60-65%. Severe pulm hypertension. Mild aortic stenosis. * Continue with IV furosemide 40 mg twice daily. Chronic conditions: * Obesity; with BMI of 38.6 present on admission in the setting of suspected obstructive sleep apnea compounding #1 - #4 - Weight loss will be recommended. * Diabetes mellitus type II; of unknown control - ADA/Cardiac diet. Fingerstick blood sugars before every meal and at bedtime plus sliding scale insulin. Check hemoglobin A1c this admission to objectively evaluate quality of diabetic control. Hold metformin in light of lactic acidosis. * History of coronary artery disease; on Plavix - Resume Plavix as previous. * History of CVA - Noted. * History of uterine cancer; status post total hysterectomy - Noted. * Chronic bilateral lower extremity lymphedema - Place compression hose and elevate lower extremities. * Osteoarthritis - Stable. Give Tylenol as needed pain or fever. DVT prophylaxis - enoxaparin Charges/Coding Visit Charges Inpatient E&M: 90045 Subs Hosp L2
[2023-08-19] MEDS: amLODIPine 10 MG Tablet PO (09:30)
[2023-08-19] MEDS: Potassium Chloride Oral Tablet 20 MEQ PO ×2 (09:30→17:18)
[2023-08-19] MEDS: Cholecalciferol (Vit D3) 125 MCG CAPSULE (5,000 UNITS) PO (09:30)
[2023-08-19] MEDS: Zinc Sulfate 50 mg zinc (220 mg) ORAL capsule PO (09:30)
[2023-08-19] MEDS: Metoprolol Tartrate 100 MG Tablet PO ×2 (09:30→21:30)
[2023-08-19] MEDS: guaiFENesin 1,200 MG Tablet 1200 MG PO ×2 (09:30→21:31)
[2023-08-19] MEDS: Ascorbic Acid 500 MG Tablet 1000 MG PO ×2 (09:30→17:18)
[2023-08-19] MEDS: Clopidogrel Bisulfate 75 MG Tablet PO (09:30)
[2023-08-19] MEDS: Magnesium Chloride 64 MG Delay Rel.Tablet 128 MG PO (09:31)
[2023-08-19] MEDS: Aspirin 81 MG TAB.CHEW PO (09:31)
[2023-08-19] MEDS: Insulin Glargine-YFGN 100 UNIT/ML Pen 60 UNIT SC (09:32)
[2023-08-19] MEDS: Furosemide 40 MG/4 ML Vial IV ×2 (09:32→17:18)
[2023-08-19] MEDS: Enoxaparin 40 MG/0.4 ML Syringe SC (09:32)
[2023-08-19] MEDS: Losartan Potassium 100 MG Tablet PO (09:32)
--- NOTE | 2023-08-19 10:09 | CASEMGMT ---
Patient has a Healthcare Power of [employer] and a Healthcare Living Will. Patient is aware documents are not on file at [facility] and to bring in copies. Ruba PASTRANA
[2023-08-19 11:53] LABS: Bedside Glucose 302 mg/dL (74-106)
--- NOTE | 2023-08-19 12:55 | RAD_ITS ---
INDICATION: CHF EXAMINATION/TECHNIQUE: X-RAY - XR Chest 1 View COMPARISON: August 18, 2023 FINDINGS: LINES/DEVICES: None. LUNGS: Bilateral pleural effusions. Basilar infiltrates cannot be excluded. No pneumothorax. MEDIASTINUM AND CARDIOVASCULAR STRUCTURES: Cardiac silhouette is enlarged and central pulmonary vascular prominence. Central airways and mediastinal contour are unremarkable. BONES AND SOFT TISSUES: Degenerative vertebral changes. RAD/Chest 1 View (Portable) IMPRESSION: Bilateral pleural effusions. Basilar infiltrates cannot be excluded. Cardiomegaly and central pulmonary vascular prominence. Electronically Signed: Matias Meier DO at 22:50 EST Reading Location ID and State: [facility] / [place] Tel [phone], Service support ,
[2023-08-19 15:25] LABS: ALB/GLOB Ratio 0.9 RATIO (0.9-2.4); Globulin 3.2 g/dL (2.2-4.2); LDH 257 U/L (84-246); Protein, Total 6.1 g/dL (6.4-8.2)
[2023-08-19] MEDS: Atorvastatin Calcium 40 MG Tablet PO (17:19)
[2023-08-19 17:42] LABS: Bedside Glucose 229 mg/dL (74-106)
[2023-08-19] MEDS: Ceftriaxone 1 GM/50 ML BAG IV (21:31)
[2023-08-19] MEDS: Azithromycin 500 MG in Dextrose 5%-Water (250mL Bag) 250 ML 250 MG IV (21:33)
[2023-08-19] MEDS: 0.9% Saline Lock 10 ML Syringe IV (21:33)
[2023-08-20] VITALS (10 sets, daily range): BP systolic 140–162; BP diastolic 50–64; PULSE 59–70; RESP 14–17; TEMP 36.6–36.7; O2SAT 89–94
[2023-08-20 00:05] LABS: Bedside Glucose 295 mg/dL (74-106)
[2023-08-20 05:22] LABS: Anion Gap 5 (5-15); BUN 44 mg/dL (7-18); BUN/Creat Ratio 40.4 RATIO (10-20); Calcium,Total 8.8 mg/dL (8.5-10.1); Chloride 108 mmol/L (98-107); Creatinine, Serum 1.09 mg/dL (0.55-1.02); EST Glomerular Filtration Rate 51 mL/min (>60); Est Glom Filt Rate - Afr Amer 61 mL/min (>60); Estimated Creatinine Clearance 30.39 ml/min; Glucose 249 mg/dL (74-106); Potassium 4.7 mmol/L (3.5-5.1); Sodium Level 141 mmol/L (136-145)
[2023-08-20] MEDS: Insulin Lispro 100 UNIT/ML INSULN.PEN SC ×4 (06:30→22:30)
--- NOTE | 2023-08-20 08:16 | PN.HOSP_ITS ---
Subjective Subjective Breathing well. Oxygen has been weaned down. Objective Data Objective Data Vital Signs: Vital Signs Temp Pulse Resp BP Pulse Ox O2 Del Method O2 Flow Rate 36.6 C 59 L 17 141/64 H 93 Nasal Cannula 5 08/20/23 04:28 08/20/23 04:28 08/20/23 04:28 08/20/23 04:28 08/20/23 04:28 08/20/23 04:29 08/20/23 04:29 Oxygen Flow Rate (L/min) 5 Oxygen Delivery Method Nasal Cannula Weight: 88.7 kg Body Mass Index (BMI) 35.7 Intake & Output: Intake and Output for Last 24 Hours 08/18/23 08/19/23 08/20/23 23:59 23:59 23:59 Intake Total 1210 / 1210 656.75 / 876.75 220 / 220 Output Total 0 / 0 500 / 500 Balance 1210 / 1210 156.75 / 376.75 220 / 220 Lab / Micro Data 08/19/23 05:00 08/20/23 03:35 Labs: Laboratory Results - last 24 hr 08/19/23 05:00: Lactate Dehydrogenase 257 H, Total Protein 6.1 L, Globulin 3.2, Albumin/Globulin Ratio 0.9 08/19/23 11:19: POC Glucose 302 H 08/19/23 17:16: POC Glucose 229 H 08/19/23 21:15: POC Glucose 295 H 08/20/23 03:35: Sodium 141, Potassium 4.7, Chloride 108 H, Carbon Dioxide 28.0, Anion Gap 5, BUN 44 H, Creatinine 1.09 H, Estim Creat Clear Calc 30.39, Est GFR (MDRD) Af Amer 61, Est GFR (MDRD) Non-Af 51 L, BUN/Creatinine Ratio 40.4 H, Glucose 249 H, Calcium 8.8 Micro: Microbiology 08/18/23 04:00 Urine, Clean Catch Legionella Antigen - Final 08/18/23 04:00 Urine, Clean Catch Streptococcus pneumoniae Antigen (M - Final 08/17/23 20:10 Mucosa - Nasopharyngeal Respiratory Panel (PCR) - Final 08/17/23 17:42 Nasal Secretion SARS-CoV-2 & FLU Antigen (Rapid) - Final Radiography Diagnostic Testing: Radiology Impression Chest X-Ray 08/19/23 12:55 IMPRESSION: Bilateral pleural effusions. Basilar infiltrates cannot be excluded. Cardiomegaly and central pulmonary vascular prominence. Electronically Signed: Matias Meier DO at 22:50 EST Reading Location ID and State: [facility] / [place] Tel [phone], Service support , Physical Exam Const alert and no apparent distress HEENT head/scalp atraumatic and moist oral mucous membranes Resp normal respiratory effort and no retractions Resp Narrative: Basilar crackles with diminished breath sounds in bases. Cardio regular rate, regular rhythm, S1 normal heart sound and S2 normal heart sound GI normal to inspection, nondistended, normoactive bowel sounds, soft to palpation, non-tender and non-distended Assessment & Plan Assessment/Plan (1) Pneumonia of both lower lobes: QUALIFIERS: Pneumonia type: due to unspecified organism Qualified Code(s): J18.9 - Pneumonia, unspecified organism (2) Acute bronchospasm: (3) Acute heart failure: QUALIFIERS: Heart failure type: unspecified Qualified Code(s): I50.9 - Heart failure, unspecified (4) Acute respiratory insufficiency: PLAN: Plan Acute hypoxic respiratory failure * Present on admission with a pulse ox of 84% on room air with tachypnea with respiratory rate of 26. ABG showed pO2 of 65. * Unclear if this is related with pneumonia favoring this actually being more related with CHF exacerbation. * Wean oxygen as tolerated * Patient on empiric antibiotics with ceftriaxone and azithromycin. * Respiratory panel negative, COVID-19 and influenza negative. Strep and Legionella negative. If the infectious workup comes back all negative then would discontinue antibiotics. * Given the lack of significant progress despite antibiotics and diuretics * Thoracentesis ordered but are too small to safely removed. Acute heart failure with preserved ejection fraction. * Bilateral pleural effusions as well. EF of 60% on 2D echocardiogram from June 24, 2021. * Echo shows an EF of 60-65%. Severe pulm hypertension. Mild aortic stenosis. * Continue with IV furosemide 40 mg twice daily. Chronic conditions: * Obesity; with BMI of 38.6 present on admission in the setting of suspected obstructive sleep apnea compounding #1 - #4 - Weight loss will be recommended. * Diabetes mellitus type II; of unknown control - ADA/Cardiac diet. Fingerstick blood sugars before every meal and at bedtime plus sliding scale insulin. Check hemoglobin A1c this admission to objectively evaluate quality of diabetic control. Hold metformin in light of lactic acidosis. * History of coronary artery disease; on Plavix - Resume Plavix as previous. * History of CVA - Noted. * History of uterine cancer; status post total hysterectomy - Noted. * Chronic bilateral lower extremity lymphedema - Place compression hose and elev ate lower extremities. * Osteoarthritis - Stable. Give Tylenol as needed pain or fever. DVT prophylaxis - enoxaparin Discussed with patient's son at bedside. Plan is to watch patient overnight and continue with diuresis patient does well hopefully we can discharge on Charges/Coding Visit Charges Inpatient E&M: 28169 Subs Hosp L2
[2023-08-20] MEDS: Potassium Chloride Oral Tablet 20 MEQ PO ×2 (08:41→16:58)
[2023-08-20] MEDS: Aspirin 81 MG TAB.CHEW PO (08:41)
[2023-08-20] MEDS: Ascorbic Acid 500 MG Tablet 1000 MG PO ×2 (08:42→16:58)
[2023-08-20] MEDS: Losartan Potassium 100 MG Tablet PO (08:43)
[2023-08-20] MEDS: Insulin Glargine-YFGN 100 UNIT/ML Pen 60 UNIT SC (08:43)
[2023-08-20] MEDS: Metoprolol Tartrate 100 MG Tablet PO ×2 (08:44→22:20)
[2023-08-20] MEDS: Furosemide 40 MG/4 ML Vial IV ×2 (08:44→16:58)
[2023-08-20] MEDS: Magnesium Chloride 64 MG Delay Rel.Tablet 128 MG PO (08:44)
[2023-08-20] MEDS: Cholecalciferol (Vit D3) 125 MCG CAPSULE (5,000 UNITS) PO (08:45)
[2023-08-20] MEDS: amLODIPine 10 MG Tablet PO (08:45)
[2023-08-20] MEDS: Zinc Sulfate 50 mg zinc (220 mg) ORAL capsule PO (08:45)
[2023-08-20] MEDS: guaiFENesin 1,200 MG Tablet 1200 MG PO ×2 (08:45→22:21)
[2023-08-20 11:52] LABS: Bedside Glucose 228 mg/dL (74-106)
[2023-08-20 11:53] LABS: Bedside Glucose 268 mg/dL (74-106)
--- NOTE | 2023-08-20 14:29 | US_ITS ---
STUDY: SUPERFICIAL ULTRASOUND - ASSESSMENT OF PLEURAL EFFUSION. REASON FOR EXAM: Female, 83 years old. Pleural effusion TECHNIQUE: A superficial ultrasound was performed with real-time and static hernadez-scale imaging. COMPARISON: None. FINDINGS: Not enough fluid in the pleural space for safe thoracentesis. US/Chest IMPRESSION: Not enough pleural effusion for safe thoracentesis. Electronically Signed: Lusi Mercado MD at 13:41 EST ,
--- NOTE | 2023-08-20 16:53 | CASEMGMT ---
RN CM in to discuss needs at discharge. Patient denies HHC at discharge. Will monitor for home oxygen. Green sheet on chart.
[2023-08-20] MEDS: Atorvastatin Calcium 40 MG Tablet PO (16:57)
[2023-08-20] MEDS: 0.9% Saline Lock 10 ML Syringe IV ×2 (16:58→22:26)
[2023-08-20 18:06] LABS: Bedside Glucose 207 mg/dL (74-106)
[2023-08-21] VITALS (8 sets, daily range): BP systolic 159–165; BP diastolic 52–64; PULSE 60–78; RESP 16–18; TEMP 36.4–36.6; O2SAT 88–98
[2023-08-21 00:25] LABS: Bedside Glucose 244 mg/dL (74-106)
--- NOTE | 2023-08-21 03:37 | NURSING ---
Patient declines use of compression socks, stating they're very hard to put on . Educated on purpose and importance of use. Voiced understanding.
[2023-08-21 06:14] LABS: Anion Gap 4 (5-15); BUN 49 mg/dL (7-18); BUN/Creat Ratio 50.9 RATIO (10-20); Calcium,Total 8.7 mg/dL (8.5-10.1); Chloride 109 mmol/L (98-107); Creatinine, Serum 0.96 mg/dL (0.55-1.02); EST Glomerular Filtration Rate 59 mL/min (>60); Est Glom Filt Rate - Afr Amer 71 mL/min (>60); Glucose 250 mg/dL (74-106); Potassium 4.8 mmol/L (3.5-5.1); Sodium Level 142 mmol/L (136-145)
[2023-08-21] MEDS: Insulin Lispro 100 UNIT/ML INSULN.PEN SC ×4 (06:39→21:34)
[2023-08-21 06:59] LABS: Bedside Glucose 236 mg/dL (74-106)
--- NOTE | 2023-08-21 07:46 | PN.HOSP_ITS ---
Reason for Visit Reason for Visit: Diagnoses Heart failure, unspecified (08/17/23) Pneumonia, unspecified organism (08/17/23) Acute bronchospasm (08/17/23) Other abnormalities of breathing (08/17/23) Subjective Subjective Breathing well. Objective Data Objective Data Vital Signs: Vital Signs Temp Pulse Resp BP Pulse Ox O2 Del Method O2 Flow Rate 36.6 C 60 16 165/57 H 95 Nasal Cannula 3 08/21/23 02:58 08/21/23 02:58 08/21/23 02:58 08/21/23 02:58 08/21/23 02:58 08/21/23 03:54 08/21/23 03:54 Oxygen Flow Rate (L/min) 3 Oxygen Delivery Method Nasal Cannula Weight: 88.7 kg Body Mass Index (BMI) 35.7 Intake & Output: Intake and Output for Last 24 Hours 08/19/23 08/20/23 08/21/23 23:59 23:59 23:59 Intake Total 656.75 / 876.75 442 / 442 0 / 0 Output Total 500 / 500 300 / 300 0 / 0 Balance 156.75 / 376.75 142 / 142 0 / 0 Lab / Micro Data 08/19/23 05:00 08/21/23 05:40 Labs: Laboratory Results - last 24 hr 08/20/23 06:28: POC Glucose 228 H 08/20/23 11:23: POC Glucose 268 H 08/20/23 16:55: POC Glucose 207 H 08/20/23 22:29: POC Glucose 244 H 08/21/23 05:40: Sodium 142, Potassium 4.8, Chloride 109 H, Carbon Dioxide 29.0, Anion Gap 4 L, BUN 49 H, Creatinine 0.96, Estim Creat Clear Calc 34.50, Est GFR (MDRD) Af Amer 71, Est GFR (MDRD) Non-Af 59 L, BUN/Creatinine Ratio 50.9 H, Glucose 250 H, Calcium 8.7 08/21/23 06:36: POC Glucose 236 H Micro: Microbiology 08/17/23 18:55 Blood Culture (Wb) - Anticubital Left Blood Culture - Preliminary No growth in 48 hours. 08/17/23 18:45 Blood Culture (Wb) - Anticubital Right Blood Culture - Preliminary No growth in 48 hours. 08/18/23 04:00 Urine, Clean Catch Legionella Antigen - Final 08/18/23 04:00 Urine, Clean Catch Streptococcus pneumoniae Antigen (M - Final 08/17/23 20:10 Mucosa - Nasopharyngeal Respiratory Panel (PCR) - Final 08/17/23 17:42 Nasal Secretion SARS-CoV-2 & FLU Antigen (Rapid) - Final Radiography Diagnostic Testing: Radiology Impression Chest Ultrasound 08/20/23 14:29 IMPRESSION: Not enough pleural effusion for safe thoracentesis. Electronically Signed: Luis Mercado MD at 13:41 EST , Physical Exam Const alert and no apparent distress Resp Resp Narrative: bibasilar crackles. Cardio regular rate and regular rhythm GI normal to inspection, nondistended, normoactive bowel sounds Extremity Extremity Narrative: edema in LE. Assessment & Plan Assessment/Plan (1) Pneumonia of both lower lobes: QUALIFIERS: Pneumonia type: due to unspecified organism Qualified Code(s): J18.9 - Pneumonia, unspecified organism (2) Acute bronchospasm: (3) Acute heart failure: QUALIFIERS: Heart failure type: unspecified Qualified Code(s): I50.9 - Heart failure, unspecified (4) Acute respiratory insufficiency: PLAN: Plan Acute hypoxic respiratory failure * Present on admission with a pulse ox of 84% on room air with tachypnea with respiratory rate of 26. ABG showed pO2 of 65. * I suspect this is all related with CHF exacerbation with pulmonary vascular congestion as well as pleural effusions. I do not feel the patient had pneumonia. * Wean oxygen as tolerated * Patient on empiric antibiotics with ceftriaxone and azithromycin. * Respiratory panel negative, COVID-19 and influenza negative. Strep and Legionella negative. If the infectious workup comes back all negative then would discontinue antibiotics. * Given the lack of significant progress despite antibiotics and diuretics * Thoracentesis ordered but fluid was too small to safely removed. * Patient was 88% on oxygen at rest. Required 2 L of oxygen with rest and activity. Patient is ambulatory in home and community and requires home oxygen with portability. Acute heart failure with preserved ejection fraction. * Bilateral pleural effusions as well. EF of 60% on 2D echocardiogram from June 24, 2021. * Echo shows an EF of 60-65%. Severe pulm hypertension. Mild aortic stenosis. * Continue with IV furosemide 40 mg twice daily. Will discharge the patient with furosemide twice daily. Fluid restrictions, sodium restrictions. Patient will continue with losartan. Follow-up with cardiology as outpatient. Chronic conditions: * Obesity; with BMI of 38.6 present on admission in the setting of suspected obstructive sleep apnea compounding #1 - #4 - Weight loss will be recommended. * Diabetes mellitus type II; of unknown control - ADA/Cardiac diet. Fingerstick blood sugars before every meal and at bedtime plus sliding scale insulin. Check hemoglobin A1c this admission to objectively evaluate quality of diabetic control. Hold metformin in light of lactic acidosis. * History of coronary artery disease; on Plavix - Resume Plavix as previous. * History of CVA - Noted. * History of uterine cancer; status post total hysterectomy - Noted. * Chronic bilateral lower extremity lymphedema - Place compression hose and elevate lower extremities. * Osteoarthritis - Stable. Give Tylenol as needed pain or fever. DVT prophylaxis - enoxaparin
[2023-08-21] MEDS: Metoprolol Tartrate 100 MG Tablet PO ×2 (08:52→21:33)
[2023-08-21] MEDS: Magnesium Chloride 64 MG Delay Rel.Tablet 128 MG PO (08:52)
[2023-08-21] MEDS: Zinc Sulfate 50 mg zinc (220 mg) ORAL capsule PO (08:52)
[2023-08-21] MEDS: Ascorbic Acid 500 MG Tablet 1000 MG PO ×2 (08:52→17:21)
[2023-08-21] MEDS: Aspirin 81 MG TAB.CHEW PO (08:53)
[2023-08-21] MEDS: guaiFENesin 1,200 MG Tablet 1200 MG PO ×2 (08:53→21:34)
[2023-08-21] MEDS: Clopidogrel Bisulfate 75 MG Tablet PO (08:53)
[2023-08-21] MEDS: Potassium Chloride Oral Tablet 20 MEQ PO ×2 (08:53→17:21)
[2023-08-21] MEDS: amLODIPine 10 MG Tablet PO (08:54)
[2023-08-21] MEDS: Cholecalciferol (Vit D3) 125 MCG CAPSULE (5,000 UNITS) PO (08:54)
[2023-08-21] MEDS: Losartan Potassium 100 MG Tablet PO (08:55)
[2023-08-21] MEDS: Insulin Glargine-YFGN 100 UNIT/ML Pen 60 UNIT SC (09:13)
[2023-08-21] MEDS: 0.9% Saline Lock 10 ML Syringe IV (09:13)
[2023-08-21] MEDS: Furosemide 40 MG/4 ML Vial IV ×2 (09:13→17:22)
[2023-08-21] MEDS: Enoxaparin 40 MG/0.4 ML Syringe SC (09:14)
[2023-08-21 11:51] LABS: Bedside Glucose 216 mg/dL (74-106)
--- NOTE | 2023-08-21 12:13 | DS.PCM_ITS ---
Providers Date of Admission: 08/17/23 Primary Care Physician: Dr. Cass Barney, DO Reason For Visit: BILATERAL PNEUMONIA WITH ACUTE BRONCHOSPASM AND Diagnosis Discharge Diagnosis (1) Acute heart failure: Status: Acute Code(s): I50.9 - Heart failure, unspecified Qualifiers: Heart failure type: unspecified Qualified Code(s): I50.9 - Heart failure, unspecified Plan Acute hypoxic respiratory failure * Present on admission with a pulse ox of 84% on room air with tachypnea with respiratory rate of 26. ABG showed pO2 of 65. * I suspect this is all related with CHF exacerbation with pulmonary vascular congestion as well as pleural effusions. I do not feel the patient had pneumonia. * Wean oxygen as tolerated * Patient on empiric antibiotics with ceftriaxone and azithromycin. * Respiratory panel negative, COVID-19 and influenza negative. Strep and Legionella negative. If the infectious workup comes back all negative then would discontinue antibiotics. * Given the lack of significant progress despite antibiotics and diuretics * Thoracentesis ordered but fluid was too small to safely removed. * Patient was 88% on oxygen at rest. Required 2 L of oxygen with rest and activity. Patient is ambulatory in home and community and requires home oxygen with portability. Acute heart failure with preserved ejection fraction. * Bilateral pleural effusions as well. EF of 60% on 2D echocardiogram from June 24, 2021. * Echo shows an EF of 60-65%. Severe pulm hypertension. Mild aortic stenosis. * Continue with IV furosemide 40 mg twice daily. Will discharge the patient with furosemide twice daily. Fluid restrictions, sodium restrictions. Patient will continue with losartan. Follow-up with cardiology as outpatient. Chronic conditions: * Obesity; with BMI of 38.6 present on admission in the setting of suspected obstructive sleep apnea compounding #1 - #4 - Weight loss will be recommended. * Diabetes mellitus type II; of unknown control - ADA/Cardiac diet. Fingerstick blood sugars before every meal and at bedtime plus sliding scale insulin. Check hemoglobin A1c this admission to objectively evaluate quality of diabetic control. Hold metformin in light of lactic acidosis. * History of coronary artery disease; on Plavix - Resume Plavix as previous. * History of CVA - Noted. * History of uterine cancer; status post total hysterectomy - Noted. * Chronic bilateral lower extremity lymphedema - Place compression hose and elevate lower extremities. * Osteoarthritis - Stable. Give Tylenol as needed pain or fever. DVT prophylaxis - enoxaparin Medications at Discharge Home Medications amlodipine 10 mg tablet 10 mg PO DAILY BLOOD PRESSURE 06/23/21 atorvastatin 40 mg tablet 40 mg PO DINNER CHOLESTEROL 06/23/21 insulin detemir U-100 100 unit/mL (3 mL) subcutaneous pen (Levemir FlexTouch U- 100 Insulin) 60 unit subcut DAILY DIABETES 06/23/21 losartan 100 mg tablet 100 mg PO DAILY BLODOD PRESSURE 06/23/21 metoprolol tartrate 100 mg tablet 100 mg PO BID BLOOD PRESSURE 06/23/21 clopidogrel 75 mg tablet (Plavix) 75 mg PO DAILY BLOOD THINNER #30 tabs 06/24/21 aspirin 325 mg tablet 325 mg PO DAILY HEART HEALTH 04/09/22 albuterol sulfate 90 mcg/actuation aerosol inhaler 2 puff inhalation Q6H PRN S HORTNESS OF BREATH 08/17/23 metformin 500 mg tablet,extended release 24 hr 1,000 mg PO BID DIABETES 08/17/23 furosemide 40 mg tablet 40 mg PO BID #60 tabs 08/21/23 potassium chloride 10 mEq capsule,extended release 10 meq PO DAILY #30 caps 08/21/23 Hospital Course Operations None Procedures 2-D Echocardiogram Summary of Care Provided Minutes Spent on Discharge: 35 Hospital Course: Patient presents with shortness of breath. Initial concern was for pneumonia but that seems more consistent with heart failure. Patient had acute exacerbation of heart failure with preserved ejection fraction. Patient was diuresed with furosemide and overall did better. Patient was requiring up to 6 L of oxygen nasal cannula but that that is since been weaned down to 2 L at rest and with activity. Patient did have some pleural effusions. A thoracentesis was ordered but on ultrasound evaluation, did not appear to be enough fluid to safely perform a thoracentesis. Is felt that this is most likely related with CHF. Patient still does have edema in her legs but overall is improved. Patient will continue with furosemide twice daily at home. Patient advised also to monitor sodium as well as fluid intake. Patient will be advised to follow-up with cardiology as outpatient as well. Weight / BMI Weight Weight: 88.7 kg Body Mass Index (BMI) 35.7 ABG / Lab / Microbiology Data 08/19/23 05:00 08/21/23 05:40 Laboratory: Laboratory Results - last 24 hr 08/20/23 16:55: POC Glucose 207 H 08/20/23 22:29: POC Glucose 244 H 08/21/23 05:40: Sodium 142, Potassium 4.8, Chloride 109 H, Carbon Dioxide 29.0, Anion Gap 4 L, BUN 49 H, Creatinine 0.96, Estim Creat Clear Calc 34.50, Est GFR (MDRD) Af Amer 71, Est GFR (MDRD) Non-Af 59 L, BUN/Creatinine Ratio 50.9 H, Glucose 250 H, Calcium 8.7 08/21/23 06:36: POC Glucose 236 H 08/21/23 11:20: POC Glucose 216 H Microbiology: Microbiology 08/17/23 18:55 Blood Culture (Wb) - Anticubital Left Blood Culture - Preliminary No growth in 48 hours. 08/17/23 18:45 Blood Culture (Wb) - Anticubital Right Blood Culture - Preliminary No growth in 48 hours. 08/18/23 04:00 Urine, Clean Catch Legionella Antigen - Final 08/18/23 04:00 Urine, Clean Catch Streptococcus pneumoniae Antigen (M - Final 08/17/23 20:10 Mucosa - Nasopharyngeal Respiratory Panel (PCR) - Final 08/17/23 17:42 Nasal Secretion SARS-CoV-2 & FLU Antigen (Rapid) - Final Radiography Diagnostic Testing: Radiology Impression Chest Ultrasound 08/20/23 14:29 IMPRESSION: Not enough pleural effusion for safe thoracentesis. Electronically Signed: Luis Mercado MD at 13:41 EST Reading Location ID and State: [address] [place] [address] , Service support , D/C Instructions Discharge Diet: 2000 Calorie Control Diet, 2000 mg Sodium Diet and - (1.5 L of fluid per day.) Meaningful Use Info Meaningful Use Diagnoses (Choose all that apply): CHF CHF KERLINE/ARB ordered at discharge?: Yes Documented LVEF (%): 65 Discharge Plan Admission Admit Date/Time: 08/17/23 19:38 Primary Reason for Your Visit: Heart failure Attending Provider: Kd Sales Primary Care Provider: Cass Barney Consulting Providers: Austin Wilkerson Instructions Patient Instructions: RAJESH RN Thoracentesis Dc, Heart Failure Meds, What Is Heart Failure, Heart Failure Flare Up Signs, Heart Failure: Tracking Your Weight, Coping with Heart Failure, Heart Failure Make Changes Diet, Heart Failure Dc Discharge Orders/Prescriptions Prescriptions: New furosemide 40 mg tablet 40 mg PO BID Qty: 60 0RF Rx Instructions: Take twice daily for 1 week then daily thereafter. potassium chloride 10 mEq capsule, extended release 10 meq PO DAILY Qty: 30 0RF Continued aspirin 325 mg tablet 325 mg PO DAILY atorvastatin 40 mg Tablet 40 mg PO DINNER metoprolol tartrate 100 mg Tablet 100 mg PO BID amlodipine 10 mg Tablet 10 mg PO DAILY losartan 100 mg Tablet 100 mg PO DAILY Levemir FlexTouch U100 Insulin 100 unit/mL (3 mL) Insulin Pen 60 unit SUBCUT DAILY clopidogrel [Plavix] 75 mg tablet 75 mg PO DAILY Qty: 30 0RF albuterol sulfate 90 mcg/actuation HFA aerosol inhaler 2 puff INHALATION Q6H PRN (Reason: SHORTNESS OF BREATH ) Held metformin 500 mg tablet extended release 24 hr 1,000 mg PO BID Hold Instructions: Resume on 08/23/23. Referrals / Follow Up: [facility] [Provider Group] - Within 1 Month Cass Barney DO [Primary Care Provider] - Within 2 Weeks Disposition Disposition (needs filled in before D/C Order can be placed): Home, Self Care Charges/Coding Visit Charges Inpatient E&M: 68402 Disch Hosp >30min
--- NOTE | 2023-08-21 16:26 | CASEMGMT ---
Patient has order for discharge. LUIS YANG in to discuss needs at discharge. Patient states she would like to go to SNF. LUIS YANG reviewed progress with therapy and patient ambulated 60feet contact guard. LUIS YANG updated patient that she is ambulating household distances and that her [employer] [facility] insurance would likely deny authorization for SNF. Patient states she feels she is not ready for discharge and not safe to go home. LUIS YANG discussed HHC, walker, and oxygen setup for at home, patient states she lives alone and does not feel she can go home. LUIS YANG updated hospitalist, hospitalist states the patient is not appropriate for SNF level of care and that she is medically ready to go home. LUIS YANG updated patient regarding conversation with hospitalist. LUIS YANG instructed patient that if she feels she is not ready to discharge, that per the IMM she received yesterday, she has the right to appeal her discharge. Patient states she would like to appeal her discharge. LUIS YANG assisted patient in following instructions on IMM to appeal her discharge. LUIS YANG updated Care Management Director and hospitalist.
[2023-08-21] MEDS: Atorvastatin Calcium 40 MG Tablet PO (17:21)
[2023-08-21 17:49] LABS: Bedside Glucose 185 mg/dL (74-106)
--- NOTE | 2023-08-21 20:24 | CASEMGMT ---
RN CM: Christina appeal notification received with Detailed Notice of Discharge (DND) from [facility]. This RN CM reviewed DND with patient who signed form confirming receipt. Process explained to pt and questions answered. This RN CM faxed DND and IMM forms (admission and 08/20/23) to [facility] per their request. [place] notice and DND sent to regional account manager for uploading of pt's medical records for appeal review. Will follow for outcome determination of appeal. Jareth Henderson RN [facility]
[2023-08-21 21:46] LABS: Bedside Glucose 199 mg/dL (74-106)
[2023-08-22] VITALS (13 sets, daily range): BP systolic 146–185; BP diastolic 48–63; PULSE 58–79; RESP 16–18; TEMP 36.4–36.9; O2SAT 93–97
[2023-08-22] MEDS: hydrALAZINE 20 MG/ML Vial 10 MG IV ×2 (04:32→22:14)
[2023-08-22] MEDS: 0.9% Saline Lock 10 ML Syringe IV ×2 (04:33→22:14)
--- NOTE | 2023-08-22 07:39 | PCM.PN.HOSP ---
Reason for Visit Reason for Visit: Diagnoses Heart failure, unspecified (08/17/23) Pneumonia, unspecified organism (08/17/23) Acute bronchospasm (08/17/23) Other abnormalities of breathing (08/17/23) Subjective Subjective Appeal discharge yesterday. Objective Data Objective Data Vital Signs: Vital Signs Temp Pulse Resp BP Pulse Ox O2 Del Method O2 Flow Rate 36.4 C L 78 18 152/53 H 94 Nasal Cannula 2 08/22/23 03:20 08/22/23 04:32 08/22/23 03:20 08/22/23 05:54 08/22/23 03:20 08/22/23 03:20 08/22/23 03:20 Oxygen Flow Rate (L/min) [ 2 AMBULATING with Oxygen #1] Oxygen Flow Rate (L/min) [At 2 REST with Oxygen] Oxygen Flow Rate (L/min) [At 0 REST on Room Air] Oxygen Flow Rate (L/min) 2 Oxygen Delivery Method Nasal Cannula Weight: 88.7 kg Body Mass Index (BMI) 35.7 Intake & Output: Intake and Output for Last 24 Hours 08/20/23 08/21/23 08/22/23 23:59 23:59 23:59 Intake Total 442 / 442 1050 / 1050 125 / 125 Output Total 300 / 300 0 / 0 Balance 142 / 142 1050 / 1050 125 / 125 Lab / Micro Data 08/19/23 05:00 08/21/23 05:40 Labs: Laboratory Results - last 24 hr 08/21/23 11:20: POC Glucose 216 H 08/21/23 17:17: POC Glucose 185 H 08/21/23 21:27: POC Glucose 199 H Micro: Microbiology 08/17/23 18:55 Blood Culture (Wb) - Anticubital Left Blood Culture - Preliminary No growth in 48 hours. 08/17/23 18:45 Blood Culture (Wb) - Anticubital Right Blood Culture - Preliminary No growth in 48 hours. 08/18/23 04:00 Urine, Clean Catch Legionella Antigen - Final 08/18/23 04:00 Urine, Clean Catch Streptococcus pneumoniae Antigen (M - Final 08/17/23 20:10 Mucosa - Nasopharyngeal Respiratory Panel (PCR) - Final 08/17/23 17:42 Nasal Secretion SARS-CoV-2 & FLU Antigen (Rapid) - Final Physical Exam Const alert and no apparent distress Cardio regular rate, regular rhythm, S1 normal heart sound and S2 normal heart sound GI normal to inspection, nondistended, normoactive bowel sounds, soft to palpation, non-tender and non-distended Extremity Extremity Narrative: edema in LE. Psych affect normal Assessment & Plan Assessment/Plan (1) Acute heart failure: QUALIFIERS: Heart failure type: unspecified Qualified Code(s): I50.9 - Heart failure, unspecified PLAN: Plan Acute hypoxic respiratory failure Present on admission with a pulse ox of 84% on room air with tachypnea with respiratory rate of 26. ABG showed pO2 of 65. I suspect this is all related with CHF exacerbation with pulmonary vascular congestion as well as pleural effusions. I do not feel the patient had pneumonia. Wean oxygen as tolerated Patient on empiric antibiotics with ceftriaxone and azithromycin. Respiratory panel negative, COVID-19 and influenza negative. Strep and Legionella negative. If the infectious workup comes back all negative then would discontinue antibiotics. Given the lack of significant progress despite antibiotics and diuretics Thoracentesis ordered but fluid was too small to safely removed. Patient was 88% on oxygen at rest. Required 2 L of oxygen with rest and activity. Patient is ambulatory in home and community and requires home oxygen with portability. Acute heart failure with preserved ejection fraction. Bilateral pleural effusions as well. EF of 60% on 2D echocardiogram from June 24, 2021. Echo shows an EF of 60-65%. Severe pulm hypertension. Mild aortic stenosis. Continue with IV furosemide 40 mg twice daily. Will discharge the patient with furosemide twice daily. Fluid restrictions, sodium restrictions. Patient will continue with losartan. Follow-up with cardiology as outpatient. Chronic conditions: Obesity; with BMI of 38.6 present on admission in the setting of suspected obstructive sleep apnea compounding #1 - #4 - Weight loss will be recommended. Diabetes mellitus type II; of unknown control - ADA/Cardiac diet. Fingerstick blood sugars before every meal and at bedtime plus sliding scale insulin. Check hemoglobin A1c this admission to objectively evaluate quality of diabetic control. Hold metformin in light of lactic acidosis. History of coronary artery disease; on Plavix - Resume Plavix as previous. History of CVA - Noted. History of uterine cancer; status post total hysterectomy - Noted. Chronic bilateral lower extremity lymphedema - Place compression hose and elevate lower extremities. Osteoarthritis - Stable. Give Tylenol as needed pain or fever. DVT prophylaxis - enoxaparin Disposition: TBD. Pt appealing discharge 08/21. Pt feeling too unsafe to return home. However, contact guard assistance and ambulated 60 feet. Awaiting on appeal process. Charges/Coding Visit Charges Inpatient E&M: 36044 Subs Hosp L2
[2023-08-22] MEDS: Cholecalciferol (Vit D3) 125 MCG CAPSULE (5,000 UNITS) PO (09:03)
[2023-08-22] MEDS: Ascorbic Acid 500 MG Tablet 1000 MG PO ×2 (09:03→16:43)
[2023-08-22] MEDS: Metoprolol Tartrate 100 MG Tablet PO ×2 (09:03→18:07)
[2023-08-22] MEDS: Clopidogrel Bisulfate 75 MG Tablet PO (09:03)
[2023-08-22] MEDS: guaiFENesin 1,200 MG Tablet 1200 MG PO ×2 (09:03→21:51)
[2023-08-22] MEDS: Losartan Potassium 100 MG Tablet PO (09:03)
[2023-08-22] MEDS: Magnesium Chloride 64 MG Delay Rel.Tablet 128 MG PO (09:03)
[2023-08-22] MEDS: Potassium Chloride Oral Tablet 20 MEQ PO ×2 (09:04→16:44)
[2023-08-22] MEDS: amLODIPine 10 MG Tablet PO (09:04)
[2023-08-22] MEDS: Enoxaparin 40 MG/0.4 ML Syringe SC (09:04)
[2023-08-22] MEDS: Aspirin 81 MG TAB.CHEW PO (09:04)
[2023-08-22] MEDS: Furosemide 40 MG Tablet PO ×2 (09:10→17:01)
[2023-08-22] MEDS: Insulin Glargine-YFGN 100 UNIT/ML Pen 60 UNIT SC (11:26)
[2023-08-22] MEDS: Zinc Sulfate 50 mg zinc (220 mg) ORAL capsule PO (11:27)
[2023-08-22 11:46] LABS: Bedside Glucose 143 mg/dL (74-106)
[2023-08-22 11:58] LABS: Bedside Glucose 102 mg/dL (74-106)
[2023-08-22] MEDS: Atorvastatin Calcium 40 MG Tablet PO (16:43)
[2023-08-22] MEDS: Insulin Lispro 100 UNIT/ML INSULN.PEN SC ×2 (17:01→21:51)
[2023-08-22 17:03] LABS: Bedside Glucose 224 mg/dL (74-106)
[2023-08-22 22:29] LABS: Bedside Glucose 259 mg/dL (74-106)
[2023-08-23] VITALS (12 sets, daily range): BP systolic 150–174; BP diastolic 41–65; PULSE 64–76; RESP 16–18; TEMP 35.9–36.8; O2SAT 2–97
[2023-08-23] MEDS: hydrALAZINE 20 MG/ML Vial 10 MG IV ×2 (05:09→17:48)
[2023-08-23] MEDS: 0.9% Saline Lock 10 ML Syringe IV ×2 (05:10→17:48)
[2023-08-23 06:52] LABS: Bedside Glucose 101 mg/dL (74-106)
--- NOTE | 2023-08-23 07:38 | PN.HOSP_ITS ---
Reason for Visit Reason for Visit: Diagnoses Heart failure, unspecified (08/17/23) Pneumonia, unspecified organism (08/17/23) Acute bronchospasm (08/17/23) Other abnormalities of breathing (08/17/23) Subjective Subjective No new events. Has been up with therapy. Objective Data Objective Data Vital Signs: Vital Signs Temp Pulse Resp BP Pulse Ox O2 Del Method O2 Flow Rate 36.8 C 67 18 150/52 H 94 Nasal Cannula 2 08/23/23 06:48 08/23/23 06:48 08/23/23 06:48 08/23/23 06:48 08/23/23 06:48 08/23/23 06:48 08/23/23 06:48 Oxygen Flow Rate (L/min) [ 2 AMBULATING with Oxygen #1] Oxygen Flow Rate (L/min) [At 2 REST with Oxygen] Oxygen Flow Rate (L/min) [At 0 REST on Room Air] Oxygen Flow Rate (L/min) 2 Oxygen Delivery Method Nasal Cannula Weight: 88.7 kg Body Mass Index (BMI) 35.7 Intake & Output: Intake and Output for Last 24 Hours 08/21/23 08/22/23 08/23/23 23:59 23:59 23:59 Intake Total 1050 / 1050 1145 / 1145 Output Total 0 / 0 Balance 1050 / 1050 1145 / 1145 Lab / Micro Data 08/19/23 05:00 08/21/23 05:40 Labs: Laboratory Results - last 24 hr 08/22/23 06:33: POC Glucose 102 08/22/23 11:23: POC Glucose 143 H 08/22/23 16:37: POC Glucose 224 H 08/22/23 21:47: POC Glucose 259 H 08/23/23 06:33: POC Glucose 101 Micro: Microbiology 08/17/23 18:55 Blood Culture (Wb) - Anticubital Left Blood Culture - Final No growth in 5 days. 08/17/23 18:45 Blood Culture (Wb) - Anticubital Right Blood Culture - Final No growth in 5 days. 08/18/23 04:00 Urine, Clean Catch Legionella Antigen - Final 08/18/23 04:00 Urine, Clean Catch Streptococcus pneumoniae Antigen (M - Final 08/17/23 20:10 Mucosa - Nasopharyngeal Respiratory Panel (PCR) - Final 08/17/23 17:42 Nasal Secretion SARS-CoV-2 & FLU Antigen (Rapid) - Final Physical Exam Const alert and no apparent distress Resp normal respiratory effort and no retractions Cardio regular rate, regular rhythm, S1 normal heart sound and S2 normal heart sound GI normal to inspection, nondistended, normoactive bowel sounds and soft to palpation Assessment & Plan Assessment/Plan (1) Acute heart failure: QUALIFIERS: Heart failure type: unspecified Qualified Code(s): I50.9 - Heart failure, unspecified PLAN: Plan Acute hypoxic respiratory failure * Present on admission with a pulse ox of 84% on room air with tachypnea with respiratory rate of 26. ABG showed pO2 of 65. * I suspect this is all related with CHF exacerbation with pulmonary vascular congestion as well as pleural effusions. I do not feel the patient had pneumonia. * Wean oxygen as tolerated * Patient on empiric antibiotics with ceftriaxone and azithromycin. * Respiratory panel negative, COVID-19 and influenza negative. Strep and Legionella negative. If the infectious workup comes back all negative then would discontinue antibiotics. * Given the lack of significant progress despite antibiotics and diuretics * Thoracentesis ordered but fluid was too small to safely removed. * Patient was 88% on oxygen at rest. Required 2 L of oxygen with rest and activity. Patient is ambulatory in home and community and requires home o xygen with portability. Acute heart failure with preserved ejection fraction. * Bilateral pleural effusions as well. EF of 60% on 2D echocardiogram from June 24, 2021. * Echo shows an EF of 60-65%. Severe pulm hypertension. Mild aortic stenosis. * Since pt has been discharged (the ), furosemide has been changed to PO. * Will discharge the patient with furosemide twice daily. Fluid restrictions, sodium restrictions. Patient will continue with losartan. Follow-up with cardiology as outpatient. HTN: * Persistently elevated throughout this hospitalization did reach up into the 180s systolic yesterday. * Patient has been continued on amlodipine 10 mg, metoprolol 100 twice daily, losartan 100 daily and furosemide. Chronic conditions: * Obesity; with BMI of 38.6 present on admission in the setting of suspected obstructive sleep apnea compounding #1 - #4 - Weight loss will be recommended. * Diabetes mellitus type II; fair control- ADA/Cardiac diet. Fingerstick blood sugars before every meal and at bedtime plus sliding scale insulin. Hemoglobin A1c 7. Hold metformin in light of lactic acidosis. * History of coronary artery disease; on Plavix - Resume Plavix as previous. * History of CVA - Noted. * History of uterine cancer; status post total hysterectomy - Noted. * Chronic bilateral lower extremity lymphedema - Place compression hose and elevate lower extremities. * Osteoarthritis - Stable. Give Tylenol as needed pain or fever. DVT prophylaxis - enoxaparin Disposition: TBD. Pt appealing discharge 08/21. Pt feeling too unsafe to return home. However, contact guard assistance and ambulated 60 feet. Awaiting on appeal process. Patient requires 2 L of oxygen with rest and activity. Medically stable for discharge. Charges/Coding Visit Charges Inpatient E&M: 15378 Subs Hosp L2
[2023-08-23] MEDS: Ascorbic Acid 500 MG Tablet 1000 MG PO ×2 (08:28→16:31)
[2023-08-23] MEDS: Aspirin 81 MG TAB.CHEW PO (08:28)
[2023-08-23] MEDS: Potassium Chloride Oral Tablet 20 MEQ PO ×2 (08:28→16:27)
[2023-08-23] MEDS: Losartan Potassium 100 MG Tablet PO (08:29)
[2023-08-23] MEDS: Metoprolol Tartrate 100 MG Tablet PO ×2 (08:29→21:11)
[2023-08-23] MEDS: Furosemide 40 MG Tablet PO ×2 (08:29→17:47)
[2023-08-23] MEDS: Enoxaparin 40 MG/0.4 ML Syringe SC (08:29)
[2023-08-23] MEDS: Clopidogrel Bisulfate 75 MG Tablet PO (08:30)
[2023-08-23] MEDS: guaiFENesin 1,200 MG Tablet 1200 MG PO ×2 (08:30→21:12)
[2023-08-23] MEDS: Magnesium Chloride 64 MG Delay Rel.Tablet 128 MG PO (08:30)
[2023-08-23] MEDS: amLODIPine 10 MG Tablet PO (08:30)
[2023-08-23] MEDS: Zinc Sulfate 50 mg zinc (220 mg) ORAL capsule PO (08:31)
[2023-08-23] MEDS: Cholecalciferol (Vit D3) 125 MCG CAPSULE (5,000 UNITS) PO (08:31)
[2023-08-23] MEDS: Insulin Glargine-YFGN 100 UNIT/ML Pen 60 UNIT SC (11:00)
[2023-08-23] MEDS: Insulin Lispro 100 UNIT/ML INSULN.PEN SC ×3 (11:01→21:09)
[2023-08-23 11:23] LABS: Bedside Glucose 185 mg/dL (74-106)
--- NOTE | 2023-08-23 14:19 | CASEMGMT ---
CM Director Follow-up: Christina fax notification received stating physician reviewer agrees pt is appropriate to transition to the next level of care. HINN 12 reviewed with pt and pt signed form. Pt provided with a copy and original placed in pt's chart. Pt confirms her son will be in tomorrow morning to transport her home by noon. Discussed and explained process for home needs including home O2 set-up process, obtaining a pulse oximeter, home health process for acceptance and start of care, and request for a walker. Jareth Henderson RN ACM
[2023-08-23] MEDS: Atorvastatin Calcium 40 MG Tablet PO (16:30)
[2023-08-23 16:55] LABS: Bedside Glucose 156 mg/dL (74-106)
[2023-08-24 03:00] VITALS: BP 160/52; PULSE 62; RESP 18; TEMP 36.9; O2SAT 95
[2023-08-24 03:27] VITALS: PULSE 68
[2023-08-24] MEDS: 0.9% Saline Lock 10 ML Syringe IV (03:27)
[2023-08-24] MEDS: hydrALAZINE 20 MG/ML Vial 10 MG IV (03:27)
[2023-08-24 06:41] LABS: Bedside Glucose 136 mg/dL (74-106)
[2023-08-24 07:20] VITALS: O2SAT 95
--- NOTE | 2023-08-24 07:36 | PN.HOSP_ITS ---
Subjective Subjective Breathing well. Says that her sons will be available to stay with her. Objective Data Objective Data Vital Signs: Vital Signs Temp Pulse Resp BP Pulse Ox O2 Del Method O2 Flow Rate 36.9 C 68 18 160/52 H 95 Nasal Cannula 2 08/24/23 03:00 08/24/23 03:27 08/24/23 03:00 08/24/23 03:00 08/24/23 03:00 08/24/23 03:00 08/24/23 03:00 Oxygen Flow Rate (L/min) [ 2 AMBULATING with Oxygen #1] Oxygen Flow Rate (L/min) [At 2 REST with Oxygen] Oxygen Flow Rate (L/min) [At 0 REST on Room Air] Oxygen Flow Rate (L/min) 2 Oxygen Delivery Method Nasal Cannula Weight: 88.7 kg Body Mass Index (BMI) 35.7 Intake & Output: Intake and Output for Last 24 Hours 08/22/23 08/23/23 08/24/23 23:59 23:59 23:59 Intake Total 1145 / 1145 730 / 1210 600 / 600 Balance 1145 / 1145 730 / 1210 600 / 600 Lab / Micro Data 08/19/23 05:00 08/21/23 05:40 Labs: Laboratory Results - last 24 hr 08/23/23 10:57: POC Glucose 185 H 08/23/23 16:25: POC Glucose 156 H 08/24/23 06:24: POC Glucose 136 H Micro: Microbiology 08/17/23 18:55 Blood Culture (Wb) - Anticubital Left Blood Culture - Final No growth in 5 days. 08/17/23 18:45 Blood Culture (Wb) - Anticubital Right Blood Culture - Final No growth in 5 days. 08/18/23 04:00 Urine, Clean Catch Legionella Antigen - Final 08/18/23 04:00 Urine, Clean Catch Streptococcus pneumoniae Antigen (M - Final 08/17/23 20:10 Mucosa - Nasopharyngeal Respiratory Panel (PCR) - Final 08/17/23 17:42 Nasal Secretion SARS-CoV-2 & FLU Antigen (Rapid) - Final Physical Exam Const alert and no apparent distress HEENT head/scalp atraumatic Psych affect normal Assessment & Plan Assessment/Plan (1) Acute heart failure: QUALIFIERS: Heart failure type: unspecified Qualified Code(s): I50.9 - Heart failure, unspecified PLAN: Plan Acute hypoxic respiratory failure * Present on admission with a pulse ox of 84% on room air with tachypnea with respiratory rate of 26. ABG showed pO2 of 65. * I suspect this is all related with CHF exacerbation with pulmonary vascular congestion as well as pleural effusions. I do not feel the patient had pneumonia. * Wean oxygen as tolerated * Patient on empiric antibiotics with ceftriaxone and azithromycin. * Respiratory panel negative, COVID-19 and influenza negative. Strep and Legionella negative. If the infectious workup comes back all negative then would discontinue antibiotics. * Given the lack of significant progress despite antibiotics and diuretics * Thoracentesis ordered but fluid was too small to safely removed. * Patient was 88% on oxygen at rest. Required 2 L of oxygen with rest and activity. Patient is ambulatory in home and community and requires home oxygen with portability. Acute heart failure with preserved ejection fraction. * Bilateral pleural effusions as well. EF of 60% on 2D echocardiogram from June 24, 2021. * Echo shows an EF of 60-65%. Severe pulm hypertension. Mild aortic stenosis. * Since pt has been discharged (the ), furosemide has been changed to PO. * Will discharge the patient with furosemide twice daily. Fluid restrictions, sodium restrictions. Patient will continue with losartan. Follow-up with cardiology as outpatient. HTN: * Persistently elevated throughout this hospitalization did reach up into the 180s systolic yesterday. * Patient has been continued on amlodipine 10 mg, metoprolol 100 twice daily, losartan 100 daily and furosemide. Chronic conditions: * Obesity; with BMI of 38.6 present on admission in the setting of suspected obstructive sleep apnea compounding #1 - #4 - Weight loss will be recommended. * Diabetes mellitus type II; fair control- ADA/Cardiac diet. Fingerstick blood sugars before every meal and at bedtime plus sliding scale insulin. Hemoglobin A1c 7. Hold metformin in light of lactic acidosis. * History of coronary artery disease; on Plavix - Resume Plavix as previous. * History of CVA - Noted. * History of uterine cancer; status post total hysterectomy - Noted. * Chronic bilateral lower extremity lymphedema - Place compression hose and elevate lower extremities. * Osteoarthritis - Stable. Give Tylenol as needed pain or fever. DVT prophylaxis - enoxaparin Disposition: TBD. Pt appealed discharge 08/21. It was overruled on the . Patient requires 2 L of oxygen with rest and activity. Medically stable for discharge. Discharge home today.
--- NOTE | 2023-08-24 08:48 | CASEMGMT ---
Discharge Planning A list of?HH providers including quality and resource use data and consistent with the patient's preferred geographic region, medical needs, and insurance network was created in [employer] Guide.? This list was provided to the RN TREY. Lindy Lee, Discharge Planning Asst.
[2023-08-24 10:24] VITALS: BP 175/43; PULSE 79; RESP 16; TEMP 36.9; O2SAT 95
--- NOTE | 2023-08-24 10:25 | CASEMGMT ---
Addendum entered by Lindy Lee 08/24/23 11:30: Discharge Planning Patient has been accepted by [facility]. Message to disregard referral sent to [facility] and [facility]. All other agencies declined patitnt. Lindy Lee, Discharge Planning Asst. Original Note: Discharge Planning HH referral sent to [facility], [facility], [facility], [facility], [facility], [facility], Radha, Sarah, Kelsi, and [facility]. Lindy Lee, Discharge Planning Asst.
--- NOTE | 2023-08-24 10:34 | CASEMGMT ---
Addendum entered by Sara Peralta 08/24/23 11:53: Per Marianna @ [facility], they are able to accept pt w/SOC slated for . FWW and O2 have been delivered to pt's room. LUIS YANG to room. Pt sitting on edge of bed and son is @ bedside. They were made aware [facility] able to accept pt w/SOC slated for . They are aware to call [facility] prior to discharging from [facility] for home o2 to be delivered and aware Rx's have been sent to [facility]. Son states they can also waste picker a pulse ox today. Further questions answered. They deny having other discharge planning needs/concerns. Addendum entered by Sara Peralta 08/24/23 11:24: Home o2 testing has been completed. Pt now only qualifies for 2 l/m w/exertion. New script obtained from Dr Sales and sent to [facility] via [employer]. Call to Hema @ [facility] who will deliver o2 to pt's room along w/WW Addendum entered by Sara Peralta 08/24/23 10:40: Pt states she does not have a pulse ox @ home. LUIS YANG recommended that she get one and she states she can afford to buy one. She was made aware of several locations one can be purchased at. Original Note: LUIS YANG NOTE; Pt being discharged home today. LUIS YANG to room. Pt sitting up in chair in room. Introduced self and role. Pt verifies she would like a walker @ discharge and denies having preference of DME co. Script obtained from Dr Sales and sent to [facility] via [employer]. Discussed HHC and pt would like this. Pt provided w/list of HHC providers that was prepared by Lindy senior production planner. Pt denies having preference and states is okay to send to all of them to see who is able to accept her. Home O2 testing to be completed this AM prior to discharge to determine oxygen requirements. Pt states her son will be in to pick her up this morning before noon. She denies having other discharge needs at this time. Beverley DODGE RN, CM
[2023-08-24] MEDS: Losartan Potassium 100 MG Tablet PO (10:38)
[2023-08-24] MEDS: Potassium Chloride Oral Tablet 20 MEQ PO (10:38)
[2023-08-24] MEDS: Aspirin 81 MG TAB.CHEW PO (10:38)
[2023-08-24] MEDS: Ascorbic Acid 500 MG Tablet 1000 MG PO (10:38)
[2023-08-24 10:39] VITALS: BP 175/43; PULSE 79
[2023-08-24] MEDS: Enoxaparin 40 MG/0.4 ML Syringe SC (10:39)
[2023-08-24] MEDS: Furosemide 40 MG Tablet PO (10:39)
[2023-08-24] MEDS: Metoprolol Tartrate 100 MG Tablet PO (10:39)
[2023-08-24] MEDS: guaiFENesin 1,200 MG Tablet 1200 MG PO (10:40)
[2023-08-24] MEDS: Magnesium Chloride 64 MG Delay Rel.Tablet 128 MG PO (10:40)
[2023-08-24] MEDS: Cholecalciferol (Vit D3) 125 MCG CAPSULE (5,000 UNITS) PO (10:40)
[2023-08-24] MEDS: Zinc Sulfate 50 mg zinc (220 mg) ORAL capsule PO (10:40)
[2023-08-24] MEDS: Clopidogrel Bisulfate 75 MG Tablet PO (10:40)
[2023-08-24] MEDS: amLODIPine 10 MG Tablet PO (10:40)
[2023-08-24] MEDS: Insulin Glargine-YFGN 100 UNIT/ML Pen 60 UNIT SC (10:56)
[2023-08-24 11:01] VITALS: O2SAT 87; O2SAT 94
[2023-08-24 11:18] LABS: Bedside Glucose 259 mg/dL (74-106)
--- NOTE | 2023-08-24 18:28 | NURSING ---
called patient back this nurse and several others checked room for missing credit card. patient states she gave it to [employer] liaison and does not remember her giving it back. staff called [employer] liaison and she states she gave the card to the patient and watched her put it with a stack of cards. encouraged patient to cancel card if she does not find it in her purse
[2023-08-25 22:52] LABS: Bedside Glucose 154 mg/dL (74-106)
== END 2023-08-24 12:23 | disposition home health service (06) | DRG 291 ==
LOC: ED 18:54 → PCU 20:10
PROVIDERS: Nurse Practitioner; Admitting Provider Internal Medicine; Emergency Provider Emergency Medicine; PCP Internal Medicine
DX: I11.0 Hypertensive heart disease with heart failure (principal); J96.01 Acute respiratory failure with hypoxia; I50.31 Acute diastolic (congestive) heart failure; E87.20 Acidosis, unspecified; J90 Pleural effusion, not elsewhere classified; R18.8 Other ascites; J98.11 Atelectasis; I27.20 Pulmonary hypertension, unspecified; E11.9 Type 2 diabetes mellitus without complications; Z79.4 Long term (current) use of insulin; I35.0 Nonrheumatic aortic (valve) stenosis; M19.90 Unspecified osteoarthritis, unspecified site; J20.9 Acute bronchitis, unspecified; I25.10 Atherosclerotic heart disease of native coronary artery without angina pectoris; I89.0 Lymphedema, not elsewhere classified; E66.9 Obesity, unspecified; Z79.02 Long term (current) use of antithrombotics/antiplatelets; Z79.82 Long term (current) use of aspirin; Z86.73 Personal history of transient ischemic attack (TIA), and cerebral infarction without residual deficits; Z68.38 Body mass index [BMI] 38.0-38.9, adult; Z85.42 Personal history of malignant neoplasm of other parts of uterus; Z90.710 Acquired absence of both cervix and uterus
CPT/HCPCS: 36415; 36600; 71045; 71046; 71275; 76604; 80048; 80053; 82803; 82962; 83036; 83605; 83615; 83880; 84156; 84484; 85025; 85379; 87040; 87428; 87449; 87633; 93005; 93306; 93970; 94640; 94667; 94668; 97162; 97166; 97530; 97535; 99285; J7050; Q9957; Q9967; A4216; J1940

== ENCOUNTER → 2023-09-23 | Outpatient (CLI) | payer MEDICARE, SELFPAY ==
[2023-09-23 13:49] LABS: Thyroid Stim Hormone (TSH) 1.68 uIU/mL (0.358-3.74)
== END | disposition home or self-care (01) ==
LOC: LAB 11:18
PROVIDERS: PCP Internal Medicine; Referring Provider Internal Medicine Cardiovascular Disease; Visit Provider Internal Medicine Cardiovascular Disease
DX: I10 Essential (primary) hypertension (principal); E78.5 Hyperlipidemia, unspecified
CPT/HCPCS: 36415; 84443

== ENCOUNTER → 2024-07-18 | Outpatient (CLI) | payer MEDICARE, SELFPAY ==
--- NOTE | 2024-07-18 13:02 | ECHOD_ITS ---
Reason For Study: Mild Procedure This was a 2D Doppler, Color Flow transthoracic echocardiogram. Spoke with Kimberli SMITH at Dr. Barney's office about patient's elevated BP. Exam performed in department. Left Ventricle Normal LV size. Moderate concentric left ventricular hypertrophy. Left ventricular systolic function is normal. The left ventricular ejection fraction is 65 %. Stage 1 diastolic dysfunction. No regional wall motion abnormalities noted. Right Ventricle Normal RV size. Normal systolic function. Atria Normal left atrium. Normal right atrium. Mitral Valve There is mild mitral annular calcification. Mild (1+) eccentric mitral valve insufficiency. Tricuspid Valve Normal tricuspid valve. Mild (1+) tricuspid valve insufficiency. Pulmonary artery systolic pressure is 34 mmHg. Aortic Valve Trisinus/trileaflet aortic valve. Peak aortic valve gradient 19 mmHg. Mean aortic valve gradient 11 mmHg. Pulmonic Valve Normal pulmonic valve. Great Vessels Normal aortic root. The pulmonary artery is normal size. Inferior vena cava collapse with sniff. Pericardium/Pleural No pericardial effusion. MMode/2D Measurements & Calculations LVIDd: 4.2 cm IVSd: 1.5 cm LVOT diam: 1.9 cm LVIDs: 2.4 cm LVPWd: 1.4 cm LVOT area: 2.8 cm2 RVDd: 3.4 cm FS: 42.0 % asc Aorta Diam: 2.9 cm LAV(MOD-bp): 56.8 ml LVAd ap4: 24.4 cm2 LAV(MOD-bp) Indexed: 31.0 ml/m2 LVLd ap4: 7.0 cm LAV(MOD-sp2): 60.2 ml EDV(MOD-sp4): 70.3 ml LAV(MOD-sp4): 48.6 ml EDV(sp4-el): 72.5 ml LVAs ap4: 10.9 cm2 LVLs ap4: 6.0 cm ESV(MOD-sp4): 18.5 ml ESV(sp4-el): 16.7 ml EF(MOD-sp4): 73.6 % EF(sp4-el): 77.0 % SV(MOD-sp4): 51.7 ml SV(sp4-el): 55.8 ml LA A4 area: 18.3 cm2 SI(MOD-sp4): 28.2 ml/m2 LA dimension(2D): 4.9 cm RA A4 area: 9.8 cm2 TAPSE: 2.6 cm Time Measurements MV dec time: 0.28 sec Doppler Measurements & Calculations MV E max kumar: 105.1 cm/sec Lat Peak E' Kumar: 5.7 cm/sec Med Peak E' Kumar: 3.7 cm/sec MV A max kumar: 153.9 cm/sec E/E' lat: 18.4 E/E' med: 28.4 MV E/A: 0.68 MV V2 max: 192.5 cm/sec Ao V2 max: 217.9 cm/sec MV max P.8 mmHg MV dec slope: 380.9 cm/sec2 Ao max P.0 mmHg MV V2 mean: 112.5 cm/sec Ao V2 mean: 158.8 cm/sec MV mean P.7 mmHg Ao mean P.0 mmHg MV V2 VTI: 34.1 cm Ao V2 VTI: 40.5 cm AV (velocity ratio): 0.67 MVA(VTI): 2.3 cm2 NERY(I,D): 1.9 cm2 NERY(V,D): 1.6 cm2 LV V1 max: 123.5 cm/sec SV(LVOT): 77.1 ml PA V2 max: 132.3 cm/sec LV V1 max P.1 mmHg PA V2 mean: 97.0 cm/sec LV V1 mean P.9 mmHg LV V1 mean: 95.6 cm/sec LV V1 VTI: 27.3 cm TR max kumar: 270.5 cm/sec TR max P.3 mmHg ECHO/Echo Complete Interpretation Summary Normal LV size. Left ventricular systolic function is normal. The left ventricular ejection fraction is 65 %. There is mild mitral annular calcification. Mild (1+) eccentric mitral valve insufficiency. Stage 1 diastolic dysfunction. Moderate concentric left ventricular hypertrophy. Ordering Physician: Cass Barney Referring Physician: Cass Barney Performed By: Bina Cruz, JOSE, RVT
--- NOTE | 2024-07-18 13:02 | CDU_ITS ---
Reason For Study: Bilateral Carotid Stenosis Rt. Velocities/BP Lt. Velocities/BP Prox CCA 200.4/18.9 cm/sec. Prox CCA 143.6/15.7 cm/sec. Mid CCA 158.9/18.9 cm/sec. Mid CCA 160.0/17.5 cm/sec. Dist CCA 179.6/24.1 cm/sec. Dist CCA 171.0/23.0 cm/sec. Prox ICA 184.8/26.7 cm/sec. Prox ICA 121.6/15.7 cm/sec. Mid ICA 171.8/16.3 cm/sec. Mid ICA 113.8/11.5 cm/sec. Dist ICA 62.6/14.5 cm/sec. Dist ICA 57.2/11.5 cm/sec. Rt. ICA/CCA = 1.2. Lt. ICA/CCA = 0.8. Prox ECA 247.0/21.5 cm/sec. Prox ECA 170.4/13.3 cm/sec. Rt. Vert. 50.9/9.0 cm/sec. Lt. Vert. 70.5/4.7 cm/sec. Right Extracranial There is heterogeneous, irregular atherosclerotic plaque noted in the right common carotid artery. There is heterogeneous, irregular atherosclerotic plaque noted in the right internal carotid artery. There is heterogeneous, irregular atherosclerotic plaque noted in the right external carotid artery. Antegrade flow is noted in the right vertebral artery. Left Extracranial There is intimal thickening but no significant atherosclerotic plaque noted in the left common carotid artery. There is heterogeneous, irregular atherosclerotic plaque noted in the left internal carotid artery. There is intimal thickening but no significant atherosclerotic plaque noted in the left external carotid artery. Antegrade flow is noted in the left vertebral artery. Procedure Carotid Duplex 52823. This is a Carotid Duplex examination using B-mode, color flow and specral Doppler. The exam was diagnostic. Exam performed in department. VL/Carotid Duplex Ultrasound Interpretation Summary Moderate (50-69%) stenosis right extracranial internal carotid. Mild (<50%) stenosis left extracranial internal carotid. Patent and antegrade vertebrals bilaterally. Ordering Physician: Cass Barney Referring Physician: Cass Barney Performed By: Garland Murray RVT
== END | disposition home or self-care (01) ==
LOC: CVS 12:55
PROVIDERS: PCP Internal Medicine; Referring Provider Internal Medicine; Visit Provider Internal Medicine
DX: I35.0 Nonrheumatic aortic (valve) stenosis (principal); I65.23 Occlusion and stenosis of bilateral carotid arteries
CPT/HCPCS: 93306; 93880

== ENCOUNTER 2025-06-27 16:37 | Inpatient (IN) | payer MEDICARE, SELFPAY ==
[2025-06-27] VITALS (8 sets, daily range): BP systolic 167–197; BP diastolic 52–65; PULSE 62–80; RESP 16–24; TEMP 36.6–36.9; O2SAT 88–100; BMI 37.8; BMI 36.7
--- NOTE | 2025-06-27 17:09 | EKG12_ITS ---
Test Reason : SOB Blood Pressure : */* mmHG Vent. Rate : 75 BPM Atrial Rate : 75 BPM P-R Int : 148 ms QRS Dur : 82 ms QT Int : 414 ms P-R-T Axes : 50 9 59 degrees QTcB Int : 462 ms Normal sinus rhythm Normal ECG Confirmed by MALIK MOJICA, JIGNESH ([id number]), editor index MAYRA LE ([id number]) on 06/29/2025 10:45:44 AM Referred By: PATRICIA Confirmed By: JIGNESH GAN MD
--- NOTE | 2025-06-27 17:10 | ED.VIS.DYS ---
HPI History of Present Illness Chief Complaint: Shortness of Breath Detail of Chief Complaint: Exertional shortness of breath last 2 days. Onset/Context/Timing Onset: Days Context: gradual Timing: Intermittent Quality: Positive for Dyspnea on exertion; Negative for Orthopnea, PND or Wheezing Current Severity: Gone Maximum Severity: Moderate Worsened by: Exertion; Not Worsened By Lying flat or Coughing Relieved by: Rest and Oxygen Associated Symptoms Negative for cough Chest Pain: Positive for None Narrative Narrative: 85-year-old female history of CVA, hypertension, diabetes and CHF. Has oxygen at home but does not wear it. States the last 2 to 3 days she has had exertional dyspnea. Denies any orthopnea. Slept last night on 1 pillow like normal. Only shortness of breath she gets results ambulation. Denies any chest pain. No hemoptysis. She has chronic lower extremity swelling it is not worse. She denies any calf pain. No fever or chills. No cough. No history of DVT or PE. Currently on no blood thinners. PE Risk Factors: Negative for Cancer, OCP + Smoking + > 35, Prior DVT or PE, Recent immobilization, Recent surgery or Recent travel Prior similar symptoms: No Recent Illness/Hospitalization: No PFSH [facility] Medical History (Updated 06/27/25 @ 18:[address] Sher Montez MD) Non-smoker On home oxygen therapy Congestive heart failure (CHF) TIA (transient ischemic attack) Bilateral lower extremity edema Mitral stenosis Aortic stenosis Right carotid bruit (HFpEF) heart failure with preserved ejection fraction Detached retina Asymptomatic bilateral carotid artery stenosis Edema BMI 38.0-38.9,adult Hyperlipidemia Microalbuminuria Pneumonia CVA (cerebral vascular accident) Diabetes HTN (hypertension) Uterine cancer Home Medications ?Medication ?Instructions ?Recorded ?Last Taken ?Type atorvastatin 40 mg tablet 40 mg PO DINNER CHOLESTEROL 06/23/21 08/16/23 History insulin detemir U-100 100 unit/mL 45 unit subcut BID DIABETES 06/23/21 08/17/23 History (3 mL) subcutaneous pen (Levemir FlexTouch U-100 Insulin) losartan 100 mg tablet 100 mg PO DAILY BLODOD PRESSURE 06/23/21 08/16/23 History metoprolol tartrate 100 mg tablet 100 mg PO BID BLOOD PRESSURE 06/23/21 08/16/23 History albuterol sulfate 90 mcg/actuation 2 puff inhalation Q6H PRN 08/17/23 Unknown History aerosol inhaler SHORTNESS OF BREATH metformin 500 mg tablet,extended 1,000 mg PO BID DIABETES 08/17/23 08/16/23 History release 24 hr potassium chloride 10 mEq 10 meq PO DAILY #30 caps 08/21/23 Unknown Rx capsule,extended release furosemide 40 mg tablet 40 mg PO DAILY 09/23/23 Unknown History clonidine HCl 0.1 mg tablet 0.1 mg PO BID #180 tabs 01/12/25 Unknown Rx hydralazine 25 mg tablet 25 mg PO TID 06/27/25 Unknown History hydralazine 50 mg tablet 50 mg PO TID 06/27/25 Unknown History Allergy/AdvReac Type Severity Reaction Status Date / Time Penicillins Allergy Hives Verified 06/27/25 16:38 Tetanus Vaccines and Toxoid Allergy Other Verified 06/27/25 16:38 Family History Father Hypertension Hyperlipidemia Mother Cancer Lung Surgical History History of detached retina repair H/O cataract removal with insertion of prosthetic lens H/O total hysterectomy Social History household members: none Smoking Status: Never smoker alcohol intake: never substance use type: does not use caffeine: Yes Type: coffee Number of servings: 2 ROS ROS ED ROS Narrative Exertional dyspnea. Constitutional Constitutional ED: Denies chills or fever(s) Eyes Eyes: Denies blurry vision ENT ENT ED: Denies ear pain Cardiovascular Cardiovascular: Denies chest pain or palpitations Respiratory/Chest Respiratory/Chest: Reports dyspnea and dyspnea on exertion; Denies cough Gastrointestinal Gastrointestinal: Denies abdominal pain, diarrhea, melena, nausea or vomiting Genitourinary Genitourinary ED: Denies dysuria or hematuria Musculoskeletal Musculoskeletal: Denies arthralgias Integumentary Denies abscess Neurologic Neurologic: Denies headache(s) Psychiatric Psychiatric: Denies anxiety Endocrine Endocrinology: Denies cold intolerance Hematologic/Lymphatic Hematologic/Lymphatic: Denies lymphadenopathy Allergic/Immunologic Allergic/Immunologic ED: Denies mouth swelling, tongue swelling or urticaria EXAM Physical Exam Narrative Exam Narrative: Well-appearing 85-year-old female vital signs stable afebrile. On 2 L she is 97% hypoxic. H EENT exam pupils round react light. Moist mutes membranes. Neck nontender no JVD. Lungs clear to auscultation bilaterally. Heart regular rhythm rate about 80 no murmur. Chest wall and ribs nontender. Abdomen soft nontender. Moving all 4 extremities. 1+ edema bilaterally. Equal symmetrical. Calves nontender no cords. Dorsi plantarflexion intact. Normal business banking manager strength. Back nontender. Neurologically she is awake alert. Answer question following commands. Hard of hearing. Const Vital Signs: 06/27/25 16:38 06/27/25 17:09 06/27/25 17:41 Temperature 97.8 F Temperature Source Oral Pulse Rate 79 Respiratory Rate 18 Respiratory Effort Short of Breath Respiratory Depth Normal Blood Pressure 197/61 H Blood Pressure Mean 106 Pulse Ox 97 92 Oxygen Delivery Method Nasal Cannula Nasal Cannula Oxygen Flow Rate (L/min) 2 2 3.5 06/27/25 17:43 Temperature 97.8 F Temperature Source Oral Pulse Rate 80 Respiratory Rate 24 H Respiratory Effort Respiratory Depth Blood Pressure 167/65 H Blood Pressure Mean 99 Pulse Ox 100 Oxygen Delivery Method Nasal Cannula Oxygen Flow Rate (L/min) 3.5 MDM MDM MDM Narrative Medical decision making narrative: 35-year-old female with exertional dyspnea may be secondary to CHF or pulmonary edema, rule out pneumonia, rule AZ, no history or risk factors for DVT or PE. She undergo a cardiac workup with a BNP and a D-dimer. Repeat exam around 5:45 PM patient is doing well on oxygen. Given her mild CHF and pleural effusions I think she will need to be admitted for diuresis. She and family are comfortable to plan. We discussed her test results. I have the hospitalist on page for admission. History & Record Review Discussion w/independent historian: Patient and Family Additional record(s) reviewed:: Prior inpatient record, Prior outpatient record, Prior ED visit and Prior labs Lab Data Attestation: I reviewed the patient's lab results. Lab results narrative: CBC shows a white count of 9. H&H 12 and 38. Platelets 342. Chemistries show gap of 15. BUN and creatinine 25 0.8. Glucose 199. Initial troponin 26. BNP 610. D-dimer came back at 1.1. It was 1.73 before. CTA at that time was negative. I do not think she needs a chest CT at this time. Given that her chest x-ray looks like this pulmonary edema and pleural effusions. Chest x-ray consistent with CHF and bilateral pleural effusions. Labs: Laboratory Results - last 24 hr 06/27/25 16:47 WBC 9.4 RBC 3.99 L Hgb 12.9 Hct 38.5 MCV 96.5 MCH 32.3 H MCHC 33.5 RDW Std Deviation 46.6 H RDW Coeff of Maribel 13.3 Plt Count 342 MPV 10.3 Immature Gran % (Auto) 1.600 H Neut % (Auto) 71.0 H Lymph % (Auto) 15.2 L [place] % (Auto) 9.7 Eos % (Auto) 1.4 Baso % (Auto) 1.1 H Absolute Neuts (auto) 6.7 Absolute Lymphs (auto) 1.43 Nucleated RBC % 0 D-Dimer Quant (PE/DVT) 1.10 H* Sodium 143 Potassium 4.0 Chloride 106 Carbon Dioxide 21.3 Anion Gap 15 BUN 25 H Creatinine 0.83 Estim Creat Clear Calc 51.88 Est GFR (MDRD) Non-Af 69 BUN/Creatinine Ratio 30.1 H Glucose 199 H Calcium 9.5 Troponin T High Sens 26 H NT pro BNP II 610 Radiography Chest X-Ray - ED: 2 View, Read by ED Physician, Heart, Mediastinum, Bony Structures, Chronic Changes, CHF, Right Effusion and Left Effusion Diagnostic Testing: Clinical Impression(s) from Imaging Studies Chest X-Ray 06/27/25 17:30 IMPRESSION: Bilateral lower lobe pneumonia with bilateral effusions. Reading Location: [facility] Chest x-ray, views, AP and lateral, interpreted by myself shows pulmonary edema consistent with CHF and bilateral pleural effusions. Rhythm Strip Rhythm Strip: Sinus Rhythm Rate: 75 Ectopy: None EKG Initial EKG: Attestation: I personally reviewed and interpreted this EKG as follows: Interpretation: Sinus Rhythm and No Acute Injury Pattern Comments: Normal sinus rhythm rate of 75 no acute signs of AZ or ischemia. Discharge Plan Dx/Rx/DC Orders Clinical Impression: Exertional dyspnea, Hypoxia, Hx of acute congestive heart failure, History of diabetes mellitus, Bilateral pleural effusion Disposition Disposition: Acute Care [facility]
--- NOTE | 2025-06-27 17:30 | RAD_ITS ---
PROCEDURE: CHEST PA AND LATERAL 06/27/2025 REASON FOR EXAM: EX DYSPNEA TECHNIQUE: Procedure Code: RADCXR Modality: DX Procedure: CHEST PA AND LATERAL COMPARISON: None FINDINGS: Hardware: None Heart: Mild cardiomegaly. Mediastinum: Atherosclerosis of the aorta. Lungs: Bibasilar interstitial and airspace opacities and bilateral effusions. No pneumothorax. Bones: Multilevel degenerative disc disease and spondylosis. RAD/Chest PA and Lateral IMPRESSION: Bilateral lower lobe pneumonia with bilateral effusions. Reading Location: [facility]
[2025-06-27 17:33] LABS: Hematocrit 38.5 % (37-47); Hemoglobin 12.9 g/dL (12.0-15.0); Immature Granulocytes Count 0.150 X10^3/uL (0.0-0.0); Mean Corp Hgb Conc 33.5 g/dL (32-36); Mean Corpuscular Volume 96.5 fL (81-99); Mean Platelet Vol. 10.3 fl (6.2-12.0); NRBC Flagged by Analyzer 0 % (0-5); Platelet Count 342 K/mm3 (150-450); RBC Distribution Width CV 13.3 % (11.6-14.6); RBC Distribution Width SD 46.6 fl (35.1-43.9); Red Blood Count 3.99 M/mm3 (4.2-5.4); White Blood Count 9.4 K/mm3 (4.4-11.0)
[2025-06-27 17:53] LABS: Anion Gap 15 (5-15); BUN 25 mg/dL (4-19); BUN/Creat Ratio 30.1 RATIO (10-20); Calcium,Total 9.5 mg/dL (7.6-11.0); Carbon Dioxide 21.3 mmol/L (21.0-32.0); Chloride 106 mmol/L (98-108); Estimated Creatinine Clearance 51.88 ml/min (50-250); Glucose 199 mg/dL (70-99); Potassium 4.0 mmol/L (3.3-5.1); Pro- Brain NATRIURETIC PEPTIDE 610 pg/mL (<=1800); Troponin T High Sensitivity 26 ng/L (<=14)
--- NOTE | 2025-06-27 18:02 | HP.PCM.HOS_ITS ---
HPI - General General Date of Admission: 06/27/25 Date of Service: 06/27/25 Chief Complaint: Shortness of breath on exertion HPI Narrative AARON DARNELL, is a 85 F who presented to [facility] ED on 06/27/2025 with worsening shortness of breath on exertion. Medical history significant for HFpEF, hypertension, hyperlipidemia, and type 2 diabetes mellitus. She follows with cardiology, last saw them in the office in August 2023. In the ED she was hypertensive to the 190s systolic and was requiring 3 L nasal cannula at rest to maintain appropriate oxygen saturations. Chest x-ray showed vascular congestion with small bilateral pleural effusions. BNP normal at 610. However given the clinical picture, highly suspected CHF exacerbation so hospitalist was contacted for admission. I saw the patient at bedside in the ED. She was sitting back comfortably in bed and eating as well as dinner when I saw her. She denied any shortness of breath at rest currently. Did report worsening lower extremity swelling over the past few days. Denies any recent illnesses. Lives at home alone and reports good functional status at baseline. No other acute concerns currently. Will be admitted for further management. [facility] Medical History (Updated 06/27/25 @ 22:[address] Efrain Ibrahim, DO) Non-smoker On home oxygen therapy Congestive heart failure (CHF) TIA (transient ischemic attack) Bilateral lower extremity edema Mitral stenosis Aortic stenosis Right carotid bruit (HFpEF) heart failure with preserved ejection fraction Detached retina Asymptomatic bilateral carotid artery stenosis Edema BMI 38.0-38.9,adult Hyperlipidemia Microalbuminuria Pneumonia CVA (cerebral vascular accident) Diabetes HTN (hypertension) Uterine cancer Home Medications ?Medication ?Instructions ?Recorded ?Last Taken ?Type atorvastatin 40 mg tablet 40 mg PO DINNER CHOLESTEROL 06/23/21 06/26/25 History insulin detemir U-100 100 unit/mL 45 unit subcut BID D IABETES 06/23/21 06/27/25 06:25 History (3 mL) subcutaneous pen (Levemir FlexTouch U-100 Insulin) losartan 100 mg tablet 100 mg PO DAILY BLODOD PRESS URE 06/23/21 06/26/25 History metoprolol tartrate 100 mg tablet 100 mg PO BID BLOOD PRESSURE 06/23/21 06/26/25 History albuterol sulfate 90 mcg/actuation 2 puff inhalation Q 6H PRN 08/17/23 06/26/25 History aerosol inhaler SHORTNESS OF BREATH metformin 500 mg tablet,extended 1,000 mg PO BID DIABE HUBERT 08/17/23 06/26/25 History release 24 hr potassium chloride 10 mEq 10 meq PO DAILY #30 caps 06/26/25 Rx capsule,extended release furosemide 40 mg tablet 40 mg PO DAILY CHF 09/23/23 06/26/25 History clonidine HCl 0.1 mg tablet 0.1 mg PO BID #180 tabs 06/26/25 Rx hydralazine 25 mg tablet 25 mg PO TID 06/27/25 Unknow n History hydralazine 50 mg tablet 50 mg PO TID blood pressure 06/27/25 06/26/25 History Allergy/AdvReac Type Severity Reaction Status Date / Time Penicillins Allergy Hives Verified 06/27/25 16:38 Tetanus Vaccines and Toxoid Allergy Other Verified 06/27/25 16:38 Family History Father Hypertension Hyperlipidemia Mother Cancer Lung Surgical History History of detached retina repair H/O cataract removal with insertion of prosthetic lens H/O total hysterectomy Social History household members: none Smoking Status: Never smoker alcohol intake: never substance use type: does not use caffeine: Yes Type: coffee Number of servings: 2 ROS Constitutional Constitutional: Reports fatigue; Denies chills, fever(s) or weakness Eyes Eyes: Denies change in vision Cardiovascular Cardiovascular: Reports dyspnea on exertion and edema; Denies chest pain, lightheadedness, orthopnea or palpitations Respiratory/Chest Respiratory/Chest: Denies cough, productive cough, shortness of breath at rest or wheezing Gastrointestinal Gastrointestinal: Denies abdominal pain Musculoskeletal Musculoskeletal: Denies arthralgias or myalgias Neurologic Neurologic: Denies dizziness, focal weakness or headache(s) Vital Signs Vital Signs Vital Signs: 06/27/25 16:38 06/27/25 17:09 06/27/25 17:41 Temperature 97.8 F Temperature Source Oral Pulse Rate 79 Respiratory Rate 18 Respiratory Effort Short of Breath Respiratory Depth Normal Blood Pressure 197/61 H Blood Pressure Mean 106 Pulse Ox 97 92 Oxygen Delivery Method Nasal Cannula Nasal Cannula Oxygen Flow Rate (L/min) 2 2 3.5 06/27/25 17:43 Temperature 97.8 F Temperature Source Oral Pulse Rate 80 Respiratory Rate 24 H Respiratory Effort Respiratory Depth Blood Pressure 167/65 H Blood Pressure Mean 99 Pulse Ox 100 Oxygen Delivery Method Nasal Cannula Oxygen Flow Rate (L/min) 3.5 Weight Weight: 93.7 kg Body Mass Index (BMI) 37.8 Physical Exam Const alert, oriented x3 and no apparent distress Constitutional Narrative: Elderly female, class II obesity, mildly fatigued appearing, otherwise sitting back comfortably in bed, conversing normally, in no acute distress. General Appearance: cooperative and comfortable HEENT normocephalic, head/scalp atraumatic, hearing grossly normal bilaterally, nasal mucous membranes and turbinates normal and moist oral mucous membranes Eyes PERRL, EOMs intact bilaterally and conjunctivae normal Neck full ROM Chest inspection of chest normal Resp normal respiratory effort and no use of accessory muscles Resp Narrative: Breathing comfortably on 3 L nasal cannula at rest. Diminished breath sounds in bilateral lung bases with mild crackles noted in mid to lower lung zones bilaterally. No wheezing noted. Cardio regular rate, regular rhythm, no murmurs and peripheral pulses 2+ throughout GI normal to inspection, nondistended, normoactive bowel sounds, soft to palpation, non-tender and non-distended Back/Spine normal ROM Extremity Extremity Narrative: +2-3 lower extremity pitting edema noted bilaterally. Skin no rashes or lesions noted Psych mental status grossly normal Results Lab / Micro Data 06/27/25 16:47 06/27/25 16:47 Labs: Laboratory Results - last 24 hr 06/27/25 16:47: WBC 9.4, RBC 3.99 L, Hgb 12.9, Hct 38.5, MCV 96.5, MCH 32.3 H, MCHC 33.5, RDW Std Deviation 46.6 H, RDW Coeff of Maribel 13.3, Plt Count 342, MPV 10.3, Immature Gran % (Auto) 1.600 H, Neut % (Auto) 71.0 H, Lymph % (Auto) 15.2 L, Greer % (Auto) 9.7, Eos % (Auto) 1.4, Baso % (Auto) 1.1 H, Absolute Neuts (auto) 6.7, Absolute Lymphs (auto) 1.43, Nucleated RBC % 0, Sodium 143, Potassium 4.0, Chloride 106, Carbon Dioxide 21.3, Anion Gap 15, BUN 25 H, Creatinine 0.83, Estim Creat Clear Calc 51.88, Est GFR (MDRD) Non-Af 69, B UN/Creatinine Ratio 30.1 H, Glucose 199 H, Calcium 9.5, Troponin T High Sens 26 H, NT pro BNP II 610 Rhythm Strip Rhythm Strip: Sinus Rhythm Rate: 75 Ectopy: None Imaging Radiology Impression Chest X-Ray 06/27/25 17:30 IMPRESSION: Bilateral lower lobe pneumonia with bilateral effusions. Reading Location: [id number] Assessment & Plan Assessment/Plan (1) Acute on chronic heart failure with preserved ejection fraction (HFpEF): PLAN: Plan Patient is an 85-year-old female who presented to [facility] ED on 06/27/2025 with worsening shortness of breath on exertion. 1. Acute hypoxia in setting of chronic hypoxic respiratory failure secondary to acute on chronic HFpEF, nonadherence to home supplemental oxygen ? Admit under inpatient status to PCU. Patient is supposed to be on 2 L nasal cannula at home chronically but reports not wearing her oxygen regularly as it is cumbersome. Requiring 3 L at rest in the ED to maintain appropriate saturations. Chest x-ray with small bilateral pleural effusions and pulmonary vascular congestion. BNP normal but this is underestimated in setting of obesity. Last echo in June 2024 showed EF 65%, stage I diastolic dysfunction, moderate concentric LV hypertrophy, no other concerning findings. Suspect CHF exacerbation is secondary to worsening pulm hypertension in setting of nonadherence to home supplemental oxygen. Will treat with IV Lasix 40 mg twice daily for now. Repeat echo ordered. Further medication management as below. 2. Hypertension/hyperlipidemia ? Follows with cardiology. Hypertensive to the 190 systolic on admit. Continue home Lopressor, losartan, hydralazine and clonidine. Continue home statin. 3. Type 2 diabetes mellitus ? Glucose 199 on admit. A1c 8.9%. Will treat with reduced dose of Lantus 25 units twice daily and Humalog 10 units with meals plus sliding scale insulin while inpatient, adjust as needed. 4. Class II obesity ? BMI 36 on admit. Complicates hospital course and care. DVT prophylaxis: Lovenox CODE STATUS: Full code, verified Expect disposition: Home, TBD Total clinical time spent by myself addressing the patient's medical issues, reviewing all the data, and collaborating with patient's care team: 76 minutes. Charges/Coding Visit Charges Inpatient E&M: 01001 Init Hosp L3
[2025-06-27 18:13] LABS: D-Dimer Quantitative (DVT/PE) 1.10 FEU/ug/m (0.27-0.49)
--- NOTE | 2025-06-27 19:17 | ECHOD_ITS ---
Reason For Study Reason For Study: CHF Procedure This was a 2D Doppler, Color Flow transthoracic echocardiogram. Exam performed portable in patient room. Left Ventricle Normal LV size. Moderate concentric left ventricular hypertrophy. The left ventricular ejection fraction is 70 %. No regional wall motion abnormalities noted. Right Ventricle Normal RV size. Normal systolic function. Atria Normal left atrium. The right atrium is moderately enlarged. Mitral Valve There is mild to moderate mitral annular calcification. Moderate (2+) eccentric mitral valve insufficiency. Tricuspid Valve Normal tricuspid valve. Moderate (2+) tricuspid valve insufficiency. Pulmonary artery systolic pressure is 56 mmHg. Moderate pulmonary hypertension. Aortic Valve Trisinus/trileaflet aortic valve. Pulmonic Valve Normal pulmonic valve. Great Vessels Normal aortic root. The pulmonary artery is normal size. Inferior vena cava collapse with respiration. Pericardium/Pleural No pericardial effusion. MMode/2D Measurements & Calculations LVIDd: 5.2 cm IVSd: 1.6 cm LAV(MOD- bp): 72.3 ml LVIDs: 2.9 cm LVPWd: 1.3 cm LAV(MOD- bp) Indexed: 37.6 ml/m2 RVDd: 3.5 cm FS: 43.1 % LAV(MOD- sp2): 57.0 ml LAV(MOD- sp4): 75.2 ml SV(MOD-sp4): 52.1 ml SV(sp4- el): 52.4 ml LVAd ap4: 25.7 cm2 LVLd ap4: 7.6 cm SI(MOD-sp4): 27.2 ml/m2 EDV(MOD-sp4): 76.1 ml EDV(sp4-el): 74.2 ml LVAs ap4: 12.9 cm2 LVLs ap4: 6.5 cm ESV(MOD-sp4): 24.0 ml ESV(sp4-el): 21.7 ml EF(MOD-sp4): 68.5 % EF(sp4-el): 70.7 % LA A4 area: 23.6 cm2 LA dimension(2D): 4.6 cm RA A4 area: 14.4 cm2 Time Measurements MV dec time: 0.22 sec Doppler Measurements & Calculations MV E max kumar: 169.4 cm/sec Lat Peak E' Kumar: 7.6 cm/sec Med Peak E' Kumar: 5.0 cm/sec MV A max kumar: 155.0 cm/sec E/E' lat: 22.4 E/E' med: 33.7 MV E/A: 1.1 MV V2 max: 186.1 cm/sec MV dec slope: 809.8 cm/sec2 Ao V2 max: 237.6 cm/sec MV max P.9 mmHg Ao max P.6 mmHg MV V2 mean: 117.6 cm/sec Ao V2 mean: 171.9 cm/sec MV mean P.4 mmHg Ao mean P.3 mmHg MV V2 VTI: 59.0 cm Ao V2 VTI: 55.2 cm AV (velocity ratio): 0.69 LV V1 max: 155.5 cm/sec PA V2 max: 117.6 cm/sec TR max kumar: 362.8 cm/sec LV V1 max P.7 mmHg PA V2 mean: 86.4 cm/sec TR max P.6 mmHg LV V1 mean P.9 mmHg LV V1 mean: 112.2 cm/sec LV V1 VTI: 38.2 cm ECHO/Echo Complete Interpretation Summary Normal LV size. Moderate concentric left ventricular hypertrophy. The left ventricular ejection fraction is 70 %. Pulmonary artery systolic pressure is 56 mmHg. Moderate pulmonary hypertension. Ordering Physician: Efrain Ibrahim Referring Physician: Cass Barney M.D. Performed By: Татьяна Saenz RCS
--- NOTE | 2025-06-27 19:50 | CASEMGMT ---
Care Management Face to Face with patient for initial transition planning/care coordination assessment in the ED.? This contract writer introduced self and role at [facility]. Patient alert and oriented. Patient willing to participate in assessment and is able to answer all questions appropriately.? Care providers, pharmacy, and demographics verified. Admitting Diagnosis: Shortness of breath Other diagnosis history: ?CHF, TIA, edema, hyperlipidemia PCP: ?[facility] Specialists: ?None Preferred Pharmacy: [facility] Insurance: ?[employer] Prescription Benefit: ?yes Living Will/HPOA: ?both completed LNOK: ?Son Living Arrangements: ?patient lives alone in a house.? Reports to being? independent with ADLs and IADLs.? Transportation: ?patient drives DME: blood pressure cuff, walker, shower stool, walker.? Has O2 through [facility] [place] but states she hasn?t used it in a year.? HHC: ?Used [facility] in the past SNF/Rehab: ?none Community Resources: ?None Behavioral Health History: ?None Patient goals: Patient wishes to discharge home, denies need for home health care at this time. Patient denies any further needs or concerns at this time. Disposition Plan: admission to acute; RN CM/SW to follow for discharge planning needs that may arise. Maty Brothers, SLITTER CREASER SLOTTER OPERATOR, TEAM OTR TRUCK DRIVER
[2025-06-27 19:57] LABS: Troponin T High Sens 2 HR 25 ng/L (<=14)
[2025-06-27] MEDS: Albuterol 2.5 MG/3 ML VIAL.NEB. INHALATION ×2 (20:51→20:57)
[2025-06-27] MEDS: Insulin Glargine-YFGN 100 UNIT/ML Pen 25 UNIT SC (21:07)
[2025-06-27 21:58] LABS: Troponin T High Sens 4 HR 28 ng/L (<=14)
[2025-06-28] VITALS (12 sets, daily range): BP systolic 142–177; BP diastolic 48–67; PULSE 54–74; RESP 16–18; TEMP 36.4–36.7; O2SAT 86–100; BMI 37.0
[2025-06-28 05:44] LABS: Hematocrit 32.2 % (37-47); Hemoglobin 10.9 g/dL (12.0-15.0); Mean Corp Hgb Conc 33.9 g/dL (32-36); Mean Corpuscular Volume 95.3 fL (81-99); Mean Platelet Vol. 10.5 fl (6.2-12.0); Platelet Count 277 K/mm3 (150-450); RBC Distribution Width CV 13.4 % (11.6-14.6); RBC Distribution Width SD 46.0 fl (35.1-43.9); Red Blood Count 3.38 M/mm3 (4.2-5.4); White Blood Count 7.6 K/mm3 (4.4-11.0)
[2025-06-28 06:26] LABS: Anion Gap 10 (5-15); BUN 23 mg/dL (4-19); BUN/Creat Ratio 25.3 RATIO (10-20); Calcium,Total 9.0 mg/dL (7.6-11.0); Carbon Dioxide 25.2 mmol/L (21.0-32.0); Chloride 105 mmol/L (98-108); Estimated Creatinine Clearance 47.30 ml/min (50-250); Glucose 128 mg/dL (70-99); Potassium 4.2 mmol/L (3.3-5.1)
--- NOTE | 2025-06-28 07:28 | PN.HOSP_ITS ---
Reason for Visit Chief Complaint: Shortness of breath on exertion Subjective Subjective Patient is an 85-year-old gentleman who presented with progressive shortness of breath. An assessment of acute on chronic congestive heart failure with preserved ejection fraction was made admitted to monitored bed for further management Objective Data Objective Data Vital Signs: Vital Signs Temp Pulse Resp BP Pulse Ox O2 Del Method O2 Flow Rate 97.6 F L 54 L 18 144/54 H 100 Nasal Cannula 3 06/28/25 03:45 06/28/25 05:50 06/28/25 03:45 06/28/25 05:50 06/28/25 03:45 06/28/25 03:51 06/28/25 03:51 Oxygen Flow Rate (L/min) 3 Oxygen Delivery Method Nasal Cannula Weight: 91.8 kg Body Mass Index (BMI) 37.0 Intake & Output: Intake and Output for Last 24 Hours 06/26/25 06/27/25 06/28/25 23:59 23:59 23:59 Intake Total 400 / 400 Output Total 250 / 250 Balance 150 / 150 Lab / Micro Data 06/28/25 05:00 06/28/25 05:00 Labs: Laboratory Results - last 24 hr 06/27/25 16:47: WBC 9.4, RBC 3.99 L, Hgb 12.9, Hct 38.5, MCV 96.5, MCH 32.3 H, MCHC 33.5, RDW Std Deviation 46.6 H, RDW Coeff of Maribel 13.3, Plt Count 342, MPV 10.3, Immature Gran % (Auto) 1.600 H, Neut % (Auto) 71.0 H, Lymph % (Auto) 15.2 L, Horry % (Auto) 9.7, Eos % (Auto) 1.4, Baso % (Auto) 1.1 H, Absolute Neuts (auto) 6.7, Absolute Lymphs (auto) 1.43, Nucleated RBC % 0, D-Dimer Quant (PE/DVT) 1.10 H*, Sodium 143, Potassium 4.0, Chloride 106, Carbon Dioxide 21.3, Anion Gap 15, BUN 25 H, Creatinine 0.83, Estim Creat Clear Calc 51.88, Est GFR (MDRD) Non-Af 69, BUN/Creatinine Ratio 30.1 H, Glucose 199 H, Hemoglobin A1c 8.9 H, Calcium 9.5, Troponin T High Sens 26 H, NT pro BNP II 610 06/27/25 19:24: Troponin T Hi Sens 2 Hr 25 H 06/27/25 21:03: POC Glucose 207 H 06/27/25 21:09: Troponin T Hi Sens 4Hr 28 H 06/28/25 05:00: WBC 7.6, RBC 3.38 L, Hgb 10.9 L, Hct 32.2 L, MCV 95.3, MCH 32.2 H, MCHC 33.9, RDW Std Deviation 46.0 H, RDW Coeff of Maribel 13.4, Plt Count 277, MPV 10.5, Sodium 140, Potassium 4.2, Chloride 105, Carbon Dioxide 25.2, Anion Gap 10, BUN 23 H, Creatinine 0.90, Estim Creat Clear Calc 47.30 L, Est GFR (MDRD) Non-Af 62, BUN/Creatinine Ratio 25.3 H, Glucose 128 H, Calcium 9.0 Radiography Diagnostic Testing: Radiology Impression Chest X-Ray 06/27/25 17:30 IMPRESSION: Bilateral lower lobe pneumonia with bilateral effusions. Reading Location: [facility] Rhythm Strip Rhythm Strip: Sinus Rhythm Rate: 75 Ectopy: None Physical Exam Narrative GENERAL: cooperative HEENT: Atraumatic; normocephalic EYES; Anicteric, Normal Conjunctiva NECK; supple, normal thyroid, RESPIRATORY: Diminished to auscultation CARDIOVASCULAR: Regular S1 S2, GI: soft, normoactive bowel sounds, : No Renal angle tenderness; EXTREMITIES: trace edema, no clubbing, MUSCULOSKELETAL: no muscle wasting NEURO: Awake; no lateralizing signs. SKIN: No Rash PSYCH; Flat affect Assessment & Plan Assessment/Plan (1) Acute on chronic heart failure with preserved ejection fraction (HFpEF): PLAN: Plan Patient is an 85-year-old gentleman who presented with progressive shortness of breath. An assessment of acute on chronic congestive heart failure with preserved ejection fraction was made admitted to monitored bed for further management 1. Acute on chronic congestive heart failure with preserved ejection fraction. Patient has been admitted to monitored bed. Echo from June 2024 demonstrated EF of 65% with stage I diastolic dysfunction. Repeat echo ordered. Patient placed on strict input and output, daily weight, fluid restriction as well as furosemide 2. Acute hypertensive emergency ? Patient presented with markedly elevated blood pressure of systolic 190 with evidence of endorgan dysfunction?CHF. Did continue patient home meds and added hydralazine as needed for systolic blood pressure greater than 160 3. Elevated D-dimer ? Ordered CTA as well as bilateral venous duplex to rule out VTE 4. Dyslipidemia ?Patient is on statin therapy, continued at home dose 5. Class II obesity with BMI of 37.0 ? Complicating care weight loss advised 6. Diabetes mellitus type 2 ? Uncontrolled with hyperglycemia. Patient hemoglobin A1c is 8.9. Did continue with patient long-acting insulin in addition to scheduled short acting insulin and was also placed on Accu-Cheks ACHS with sliding scale coverage 7. Anemia ? Secondary to chronic disorder monitoring H&H and transfuse if patient becomes symptomatic or hemoglobin falls below 7 8. Chronic hypoxic respiratory failure ? Per patient he supposed to be on 2 L continuous however he does not wear oxygen as instructed since it interferes with her activities of daily living 9. DVT prophylaxis ? Subcu Lovenox Time spent in the patient's overall evaluation,decision-making process, review of diagnostic data, adjustment of management, discussion with other providers, nursing nursing and ancillary staff involved in patient's care documentation, 50 Minutes Charges/Coding Visit Charges Inpatient E&M: 92403 Subs Hosp L3
--- NOTE | 2025-06-28 11:19 | VDLE_ITS ---
Reason For Study Reason For Study: Elevated D Dimer RIGHT LEFT GSV is normal. GSV is normal. CFV is compressible, spontaneous, phasic, competent CFV is compressible, spontaneous, phasic, competent, and demonstrates normal augmentation. and demonstrates normal augmentation. FV is compressible, spontaneous, phasic, competent FV is compressible, spontaneous, phasic, competent and demonstrates normal augmentation. and demonstrates normal augmentation. POP V is compressible, spontaneous, phasic, competent POP V is compressible, spontaneous, phasic, competent and demonstrates normal augmentation. and demonstrates normal augmentation. T/P Trunk is compressible. T/P Trunk is compressible. PTV is compressible. PTV is compressible. RT PerV is compressible. LT PerV is compressible. Procedure This is a venous duplex using B-mode, color flow and spectral Doppler. Exam performed portable in patient room. The exam was diagnostic. A preliminary report was called and/or faxed to PCU systems project manager Jody. VL/Venous Duplex US - Pee Extrem Interpretation Summary Deep veins of the bilateral lower extremities are patent and compressible segme ntally. There is no evidence of bilateral lower extremity deep vein thrombosis. The bilateral great saphenous veins appea r patent and compressible segmentally. Ordering Physician: Austin Tijerina Referring Physician: Cass Barney M.D. Performed By: Garland Murray RVT
--- NOTE | 2025-06-28 11:20 | CT_ITS ---
PROCEDURE: CTA CHEST W/WO CONTRAST 06/28/2025 REASON FOR EXAM: ELEVATED D DIMER TECHNIQUE: Procedure Code: [id number] Modality: CT Procedure: CTA CHEST W/WO CONTRAST Multiplanar Sagittal and Coronal images were obtained. CONTRAST: Isovue 370 VOLUME: 84 mL One or more dose reduction techniques were used (e.g., Automated exposure control, adjustment of the mA and/or kV according to patient size, use of iterative reconstruction technique). RADIATION DOSE SUMMARY: CTDlvol: 15.02 mGy DLP: 460.35 mGycm COMPARISON: None. # of known CTs in the past 12 months: 0 # of known Cardiac Nuclear Medicine Studies in the past 12 months: 0 FINDINGS: Thoracic Aorta: No aneurysm. No dissection. Atherosclerotic calcifications. Heart: Large cardiomegaly. Atherosclerotic calcifications of the coronary arteries. Pulmonary Vessels: No evidence of pulmonary embolism. Hardware: Monitor electrodes overlie the chest. Lymph nodes: Small mediastinal lymph nodes which are nonspecific and can be infectious. Lungs and Airways: Diffuse ground-glass densities. Atelectasis in the lower lobes. Pleura: Bilateral small pleural effusions with atelectasis. Upper Abdomen: Unremarkable. Bones: No acute bony abnormalities. CT/CTA Chest W/WO Contrast IMPRESSION: No evidence of pulmonary embolism. Cardiomegaly with interstitial densities and pleural effusions consistent with CHF. Reading Location: [facility]
[2025-06-28] MEDS: Insulin Glargine-YFGN 100 UNIT/ML Pen 25 UNIT SC ×2 (12:42→21:20)
[2025-06-29] VITALS (11 sets, daily range): BP systolic 137–161; BP diastolic 39–65; PULSE 57–76; RESP 14–18; TEMP 35.5–36.8; O2SAT 84–100; BMI 36.3
[2025-06-29 05:06] LABS: Hematocrit 36.2 % (37-47); Hemoglobin 11.5 g/dL (12.0-15.0); Mean Corp Hgb Conc 31.8 g/dL (32-36); Mean Corpuscular Volume 101.4 fL (81-99); Mean Platelet Vol. 10.4 fl (6.2-12.0); Platelet Count 264 K/mm3 (150-450); RBC Distribution Width CV 13.8 % (11.6-14.6); RBC Distribution Width SD 50.3 fl (35.1-43.9); Red Blood Count 3.57 M/mm3 (4.2-5.4); White Blood Count 7.6 K/mm3 (4.4-11.0)
[2025-06-29 06:24] LABS: Anion Gap 10 (5-15); BUN 29 mg/dL (4-19); BUN/Creat Ratio 26.7 RATIO (10-20); Calcium,Total 9.1 mg/dL (7.6-11.0); Carbon Dioxide 25.9 mmol/L (21.0-32.0); Chloride 102 mmol/L (98-108); Cholesterol 99 mg/dL (<=200); Estimated Creatinine Clearance 38.31 ml/min (50-250); Glucose 171 mg/dL (70-99); Low Density Lipoprotein Calc. 37 mg/dL; Magnesium 2.1 mg/dL (1.5-2.2); Potassium 4.3 mmol/L (3.3-5.1); Triglycerides 110 mg/dL; Very Low Density Lipoprotein 22 mg/dL (5-40); cholesterol:hdl ratio screen 2.39
[2025-06-29] MEDS: 0.9% Saline Lock 10 ML Syringe IV ×2 (09:47→16:48)
--- NOTE | 2025-06-29 10:25 | DCINST_ITS ---
Discharge Instructions Follow Up Care Test Results: Test results from this visit will be discussed in further detail at your follow- up appointment, if applicable. Discharge Plan Admission Admit Date/Time: 06/27/25 18:09 Attending Provider: Ricardo Stinson Primary Care Provider: Cass Barney Consulting Providers: Efrain Ibrahim; Austin Tijerina Discharge Orders/Prescriptions Prescriptions: No Action furosemide 40 mg tablet 40 mg PO DAILY atorvastatin 40 mg Tablet 40 mg PO DINNER metoprolol tartrate 100 mg Tablet 100 mg PO BID losartan 100 mg Tablet 100 mg PO DAILY Levemir FlexTouch U100 Insulin 100 unit/mL (3 mL) Insulin Pen 45 unit SUBCUT BID Patient Comments: States she takes Lantus metformin 500 mg tablet extended release 24 hr 1,000 mg PO BID albuterol sulfate 90 mcg/actuation HFA aerosol inhaler 2 puff INHALATION Q6H PRN (Reason: SHORTNESS OF BREATH ) potassium chloride 10 mEq capsule, extended release 10 meq PO DAILY Qty: 30 0RF hydralazine 25 mg tablet 25 mg PO TID hydralazine 50 mg tablet 50 mg PO TID clonidine HCl 0.1 mg tablet 0.1 mg PO BID Qty: 180 3RF Referrals / Follow Up: Cass Barney DO [Primary Care Provider, Internal Medicine]
--- NOTE | 2025-06-29 11:06 | PCM.PN.HOSP ---
Reason for Visit Chief Complaint: Shortness of breath on exertion Objective Data Objective Data Vital Signs: Vital Signs Temp Pulse Resp BP Pulse Ox O2 Del Method O2 Flow Rate 97.4 F L 66 18 146/39 H 90 Nasal Cannula 5 06/29/25 09:37 06/29/25 09:41 06/29/25 09:37 06/29/25 09:37 06/29/25 10:36 06/29/25 10:36 06/29/25 10:36 Oxygen Flow Rate (L/min) 5 Oxygen Delivery Method Nasal Cannula Weight: 198 lb 10.184 oz Body Mass Index (BMI) 36.3 Intake & Output: Intake and Output for Last 24 Hours 06/27/25 06/28/25 06/29/25 23:59 23:59 23:59 Intake Total 400 / 400 Output Total 250 / 250 Balance 150 / 150 Lab / Micro Data 06/29/25 04:23 06/29/25 04:23 Labs: Laboratory Results - last 24 hr 06/28/25 11:59: POC Glucose 168 H 06/28/25 17:11: POC Glucose 172 H 06/28/25 21:19: POC Glucose 128 H 06/29/25 04:23: WBC 7.6, RBC 3.57 L, Hgb 11.5 L, Hct 36.2 L, MCV 101.4 H D, MCH 32.2 H, MCHC 31.8 L D, RDW Std Deviation 50.3 H, RDW Coeff of Maribel 13.8, Plt Count 264, MPV 10.4, Sodium 138, Potassium 4.3, Chloride 102, Carbon Dioxide 25.9, Anion Gap 10, BUN 29 H, Creatinine 1.10, Estim Creat Clear Calc 38.31 L, Est GFR (MDRD) Non-Af 49 L, BUN/Creatinine Ratio 26.7 H, Glucose 171 H, Calcium 9.1, Phosphorus 4.9 H, Magnesium 2.1, Triglycerides 110, Cholesterol 99, LDL Cholesterol, Calc 37, VLDL Cholesterol 22, HDL Cholesterol 42, Cholesterol/HDL Ratio 2.39 06/29/25 05:54: POC Glucose 151 H 06/29/25 08:33: POC Glucose 141 H Radiography Diagnostic Testing: Radiology Impression Echocardiogram 06/27/25 19:17 Interpretation Summary Normal LV size. Moderate concentric left ventricular hypertrophy. The left ventricular ejection fraction is 70 %. Pulmonary artery systolic pressure is 56 mmHg. Moderate pulmonary hypertension. Ordering Physician: Efrain Ibrahim Referring Physician: Cass Barney M.D. Performed By: Татьяна Saenz RCS Venous Doppler Study 06/28/25 11:19 Interpretation Summary Deep veins of the bilateral lower extremities are patent and compressible segmentally. There is no evidence of bilateral lower extremity deep vein thrombosis. The bilateral great saphenous veins appear patent and compressible segmentally. Ordering Physician: Austin Tijerina Referring Physician: Cass Barney M.D. Performed By: Garland Murray Luz Chest CTA 06/28/25 11:20 IMPRESSION: No evidence of pulmonary embolism. Cardiomegaly with interstitial densities and pleural effusions consistent with CHF. Reading Location: [facility] Rhythm Strip Rhythm Strip: Sinus Rhythm Rate: 75 Ectopy: None Physical Exam Narrative Seen and examined. Patient feels mild short of breath. Leg swelling has improved. On 3 L of oxygen. Patient was prescribed 2 L of oxygen about a year ago but was not using it. On 5 L of oxygen Physical exam General: Alert, Oriented x3, Cooperative HEENT: Atraumatic, PERRLA, EOMI, Normocephalic. Oral: No Gingival or Mucosal Lesions/ Ulcerations Neck: Supple, No JVD, Negative Carotid Bruits Chest wall/Lungs: Air entry diminished in bilateral lung bases. No crepitation/rhonchi Cardiovascular: Sinus bradycardia, normal S1,S2, No M/G/R Abdomen: Bowel Sounds Present, Soft, Non Tender, Non-Distended : No dysuria. No renal angle tenderness. No suprapubic tenderness. Extremities: 1+ bilateral pedal edema, Capillary Refill Less than 3 Seconds Skin: No rashes, No breakdown Musculoskeletal: No Tenderness to Palpation of Joints or Extremities Neurological: Cranial nerves II-XII grossly intact, DTR 2+/4. No acute focal neurological deficit. Psych/Mental Status: Normal Affect, Appropriate. Assessment & Plan Assessment/Plan (1) Acute on chronic heart failure with preserved ejection fraction (HFpEF): PLAN: Plan Patient is an 85-year-old gentleman who presented with progressive shortness of breath. An assessment of acute on chronic congestive heart failure with preserved ejection fraction was made admitted to monitored bed for further management 1. Acute on chronic congestive heart failure with preserved ejection fraction. Patient has been admitted to monitored bed. Echo from June 2024 demonstrated EF of 65% with stage I diastolic dysfunction. Repeat echo ordered. Patient placed on strict input and output, daily weight, fluid restriction as well as furosemide 06/09: Patient is still short of breath worse on mild exertion. Requires 4 to 5 L of oxygen with mild exertion. 2D echo shows EF 70% but moderate pulmonary hypertension, RVSP 56 mmHg. 2. Acute hypertensive emergency ? Patient presented with markedly elevated blood pressure of systolic 190 with evidence of endorgan dysfunction?CHF. Did continue patient home meds and added hydralazine as needed for systolic blood pressure greater than 160 3. Elevated D-dimer probably due to acute phase reactant. 06/29: CTA suggestive of CHF. PE ruled out. Venous duplex also negative for DVT 4. Dyslipidemia ?Patient is on statin therapy, continued at home dose 5. Class II obesity with BMI of 37.0 ? Complicating care weight loss advised 6. Diabetes mellitus type 2 ? Uncontrolled with hyperglycemia. Patient hemoglobin A1c is 8.9. Did continue with patient long-acting insulin in addition to scheduled short acting insulin and was also placed on Accu-Cheks ACHS with sliding scale coverage 06/29: Glucose about 150s. 7. Anemia ? Secondary to chronic disorder monitoring H&H and transfuse if patient becomes symptomatic or hemoglobin falls below 7 H&H 11.5/36.2%. 8. Chronic hypoxic respiratory failure ? Per patient he supposed to be on 2 L continuous however he does not wear oxygen as instructed since it interferes with her activities of daily living 9. CKD stage IIIb: BUN/creatinine 29/1.10. Estimated creatinine clearance 38.3 mL/min. Electrolytes in normal range. DVT prophylaxis ? Subcu Lovenox Laboratory Results 06/28/25 17:11: POC Glucose 172 H 06/28/25 21:19: POC Glucose 128 H 06/29/25 04:23: WBC 7.6, RBC 3.57 L, Hgb 11.5 L, Hct 36.2 L, MCV 101.4 H D, MCH 32.2 H, MCHC 31.8 L D, RDW Std Deviation 50.3 H, RDW Coeff of Maribel 13.8, Plt Count 264, MPV 10.4, Sodium 138, Potassium 4.3, Chloride 102, Carbon Dioxide 25.9, Anion Gap 10, BUN 29 H, Creatinine 1.10, Estim Creat Clear Calc 38.31 L, Est GFR (MDRD) Non-Af 49 L, BUN/Creatinine Ratio 26.7 H, Glucose 171 H, Calcium 9.1, Phosphorus 4.9 H, Magnesium 2.1, Triglycerides 110, Cholesterol 99, LDL Cholesterol, Calc 37, VLDL Cholesterol 22, HDL Cholesterol 42, Cholesterol/HDL Ratio 2.39 06/29/25 05:54: POC Glucose 151 H 06/29/25 08:33: POC Glucose 141 H 06/29/25 11:52: POC Glucose 193 H Clinical Impression(s) from Imaging Studies Chest X-Ray 06/27/25 17:30 IMPRESSION: Bilateral lower lobe pneumonia with bilateral effusions. Reading Location: [id number] Echocardiogram 06/27/25 19:17 Interpretation Summary Normal LV size. Moderate concentric left ventricular hypertrophy. The left ventricular ejection fraction is 70 %. Pulmonary artery systolic pressure is 56 mmHg. Moderate pulmonary hypertension. Ordering Physician: Efrain Ibrahim Referring Physician: Cass Barney M.D. Performed By: Татьяна Saenz RCS Venous Doppler Study 06/28/25 11:19 Interpretation Summary Deep veins of the bilateral lower extremities are patent and compressible segmentally. There is no evidence of bilateral lower extremity deep vein thrombosis. The bilateral great saphenous veins appear patent and compressible segmentally. Ordering Physician: Austin Tijerina Referring Physician: Cass Barney M.D. Performed By: Garland Murray RVT Chest CTA 06/28/25 11:20 IMPRESSION: No evidence of pulmonary embolism. Cardiomegaly with interstitial densities and pleural effusions consistent with CHF. Reading Location: [id number] Charges/Coding Visit Charges Inpatient E&M: 62524 Subs Hosp L2
[2025-06-29] MEDS: Insulin Glargine-YFGN 100 UNIT/ML Pen 25 UNIT SC ×2 (11:54→21:03)
--- NOTE | 2025-06-29 14:35 | CASEMGMT ---
LUIS YANG in to discuss discharge planning with patient. Patient denies needs or help at discharge. Patient confirms that she has [employer] home oxygen at home but her concentrator needs serviced. Patient denies further needs or concerns at discharge. LUIS YANG called Raji, [employer] Liaison, to verify oxygen and to service concentrator. Raji states he will call son to services concentrator and patient's oxygen order is for 2lpm with ext and at HS. LUIS YANG placed Green Sheet on chart.
[2025-06-30] VITALS (11 sets, daily range): BP systolic 114–165; BP diastolic 42–57; PULSE 57–72; RESP 18–20; TEMP 36.2–37; O2SAT 85–97
[2025-06-30 07:23] LABS: Hematocrit 33.9 % (37-47); Hemoglobin 11.1 g/dL (12.0-15.0); Mean Corp Hgb Conc 32.7 g/dL (32-36); Mean Corpuscular Volume 96.6 fL (81-99); Mean Platelet Vol. 10.5 fl (6.2-12.0); Platelet Count 289 K/mm3 (150-450); RBC Distribution Width CV 13.3 % (11.6-14.6); RBC Distribution Width SD 46.9 fl (35.1-43.9); Red Blood Count 3.51 M/mm3 (4.2-5.4); White Blood Count 7.1 K/mm3 (4.4-11.0)
[2025-06-30 07:48] LABS: Anion Gap 9 (5-15); BUN 33 mg/dL (4-19); BUN/Creat Ratio 27.4 RATIO (10-20); Calcium,Total 8.8 mg/dL (7.6-11.0); Carbon Dioxide 27.4 mmol/L (21.0-32.0); Chloride 101 mmol/L (98-108); Estimated Creatinine Clearance 35.12 ml/min (50-250); Glucose 203 mg/dL (70-99); Potassium 4.2 mmol/L (3.3-5.1)
[2025-06-30] MEDS: Insulin Glargine-YFGN 100 UNIT/ML Pen 25 UNIT SC ×2 (08:10→21:30)
--- NOTE | 2025-06-30 08:59 | PCM.DC ---
Discharge Instructions DC O2, CPAP, BIPAP needs Home O2 Discharge instructions: No Follow Up Care Test Results: Test results from this visit will be discussed in further detail at your follow-up appointment, if applicable. Discharge Plan Admission Admit Date/Time: 06/27/25 18:09 Attending Provider: Ricardo Stinson Primary Care Provider: aCss Barney Consulting Providers: Efrain Ibrahim; Austin Tijerina Discharge Orders/Prescriptions Prescriptions: New metoprolol succinate 100 mg capsule,sprinkle,ER 24hr 100 mg PO DAILY 30 Days Qty: 30 2RF Continued atorvastatin 40 mg Tablet 40 mg PO DINNER losartan 100 mg Tablet 100 mg PO DAILY Levemir FlexTouch U100 Insulin 100 unit/mL (3 mL) Insulin Pen 45 unit SUBCUT BID Patient Comments: States she takes Lantus metformin 500 mg tablet extended release 24 hr 1,000 mg PO BID albuterol sulfate 90 mcg/actuation HFA aerosol inhaler 2 puff INHALATION Q6H PRN (Reason: SHORTNESS OF BREATH ) potassium chloride 10 mEq capsule, extended release 10 meq PO DAILY Qty: 30 0RF hydralazine 50 mg tablet 50 mg PO TID clonidine HCl 0.1 mg tablet 0.1 mg PO BID Qty: 180 3RF Changed furosemide 40 mg tablet 40 mg PO BID 30 Days Qty: 60 2RF Discontinued metoprolol tartrate 100 mg Tablet 100 mg PO BID hydralazine 25 mg tablet 25 mg PO TID Referrals / Follow Up: Cass Barney DO [Primary Care Provider, Internal Medicine] Prashanth Sethi PA [Med Staff - [facility] Practice Prof, Cardiology] - Within 1 Week Disposition Discharge Orders: Discharge Patient (Routine); Ordered 06/30/25 Ordered By: Dr. Ricardo Stinson
[2025-06-30] MEDS: 0.9% Saline Lock 10 ML Syringe IV ×2 (10:01→17:19)
--- NOTE | 2025-06-30 12:34 | PCM.DC.SUM ---
Providers Date of Admission: 06/27/25 Date of Discharge: 06/30/25 Primary Care Physician: Dr. Cass Barney DO Reason For Visit: CHF EXACERBATION Diagnosis Discharge Diagnosis (1) Acute on chronic heart failure with preserved ejection fraction (HFpEF): Status: Acute Code(s): I50.33 - Acute on chronic diastolic (congestive) heart failure Plan Patient is an 85-year-old gentleman who presented with progressive shortness of breath. An assessment of acute on chronic congestive heart failure with preserved ejection fraction was made admitted to monitored bed for further management 1. Acute on chronic congestive heart failure with preserved ejection fraction. Patient has been admitted to monitored bed. Echo from June 2024 demonstrated EF of 65% with stage I diastolic dysfunction. Repeat echo ordered. Patient placed on strict input and output, daily weight, fluid restriction as well as furosemide 06/09: Patient is still short of breath worse on mild exertion. Requires 4 to 5 L of oxygen with mild exertion. 2D echo shows EF 70% but moderate pulmonary hypertension, RVSP 56 mmHg. 06/30: Shortness of breath is resolved. Almost qualification test ordered. Patient pulse ox 91% on room air. Requires 2 L of oxygen on ambulation. I have reviewed the oxygen testing, and this patient qualifies for the home equipment and portability. The patient is mobile in the home and the community. Advised follow-up in [place] cardiology office. 2. Acute hypertensive emergency ? Patient presented with markedly elevated blood pressure of systolic 190 with evidence of endorgan dysfunction?CHF. Did continue patient home meds and added hydralazine as needed for systolic blood pressure greater than 160 07/19: Patient blood pressure is controlled fluctuates between 114/54-1 50/46 which is acceptable for her age. She is on losartan, metoprolol succinate, furosemide and hydralazine. 3. Elevated D-dimer probably due to acute phase reactant. 06/29: CTA suggestive of CHF. PE ruled out. Venous duplex also negative for DVT 4. Dyslipidemia ?Patient is on statin therapy, continued at home dose 5. Class II obesity with BMI of 37.0 ? Complicating care weight loss advised 6. Diabetes mellitus type 2 ? Uncontrolled with hyperglycemia. Patient hemoglobin A1c is 8.9. Did continue with patient long-acting insulin in addition to scheduled short acting insulin and was also placed on Accu-Cheks ACHS with sliding scale coverage 06/29: Glucose about 150s. 7. Anemia ? Secondary to chronic disorder monitoring H&H and transfuse if patient becomes symptomatic or hemoglobin falls below 7 H&H 11.5/36.2%. 8. Chronic hypoxic respiratory failure ? Per patient he supposed to be on 2 L continuous however he does not wear oxygen as instructed since it interferes with her activities of daily living 9. CKD stage IIIb: BUN/creatinine 29/1.10. Estimated creatinine clearance 38.3 mL/min. Electrolytes in normal range. DVT prophylaxis ? Subcu Lovenox Discharge medication reconciliation done. Discharge follow-up instructions completed. Discharge process discussed with the patient and all questions were answered to patient's satisfaction. Follow with PCP in 1 to 2 weeks Total time spent, exact 35 minutes on discharge meds reconciliation, examination, coordination of care with nurses and ancillary staff, review of imaging and blood test and discussion with the patient on follow-up instructions. Laboratory Results 06/28/25 17:11: POC Glucose 172 H 06/28/25 21:19: POC Glucose 128 H 06/29/25 04:23: WBC 7.6, RBC 3.57 L, Hgb 11.5 L, Hct 36.2 L, MCV 101.4 H D, MCH 32.2 H, MCHC 31.8 L D, RDW Std Deviation 50.3 H, RDW Coeff of Maribel 13.8, Plt Count 264, MPV 10.4, Sodium 138, Potassium 4.3, Chloride 102, Carbon Dioxide 25.9, Anion Gap 10, BUN 29 H, Creatinine 1.10, Estim Creat Clear Calc 38.31 L, Est GFR (MDRD) Non-Af 49 L, BUN/Creatinine Ratio 26.7 H, Glucose 171 H, Calcium 9.1, Phosphorus 4.9 H, Magnesium 2.1, Triglycerides 110, Cholesterol 99, LDL Cholesterol, Calc 37, VLDL Cholesterol 22, HDL Cholesterol 42, Cholesterol/HDL Ratio 2.39 06/29/25 05:54: POC Glucose 151 H 06/29/25 08:33: POC Glucose 141 H 06/29/25 11:52: POC Glucose 193 H Clinical Impression(s) from Imaging Studies Chest X-Ray 06/27/25 17:30 IMPRESSION: Bilateral lower lobe pneumonia with bilateral effusions. Reading Location: [facility] Echocardiogram 06/27/25 19:17 Interpretation Summary Normal LV size. Moderate concentric left ventricular hypertrophy. The left ventricular ejection fraction is 70 %. Pulmonary artery systolic pressure is 56 mmHg. Moderate pulmonary hypertension. Ordering Physician: Efrain Ibrahim Referring Physician: Cass Barney M.D. Performed By: Татьяна Saenz RCS Venous Doppler Study 06/28/25 11:19 Interpretation Summary Deep veins of the bilateral lower extremities are patent and compressible segmentally. There is no evidence of bilateral lower extremity deep vein thrombosis. The bilateral great saphenous veins appear patent and compressible segmentally. Ordering Physician: Austin Tijerina Referring Physician: Cass Barney M.D. Performed By: Garland Murray RVT Chest CTA 06/28/25 11:20 IMPRESSION: No evidence of pulmonary embolism. Cardiomegaly with interstitial densities and pleural effusions consistent with CHF. Reading Location: [facility] Medications at Discharge Home Medications atorvastatin 40 mg tablet 40 mg PO DINNER CHOLESTEROL 06/23/21 insulin detemir U-100 100 unit/mL (3 mL) subcutaneous pen (Levemir FlexTouch U-100 Insulin) 45 unit subcut BID DIABETES 06/23/21 losartan 100 mg tablet 100 mg PO DAILY BLODOD PRESSURE 06/23/21 albuterol sulfate 90 mcg/actuation aerosol inhaler 2 puff inhalation Q6H PRN SHORTNESS OF BREATH 08/17/23 metformin 500 mg tablet,extended release 24 hr 1,000 mg PO BID DIABETES 08/17/23 potassium chloride 10 mEq capsule,extended release 10 meq PO DAILY #30 caps 08/21/23 clonidine HCl 0.1 mg tablet 0.1 mg PO BID #180 tabs 01/12/25 hydralazine 50 mg tablet 50 mg PO TID blood pressure 06/27/25 furosemide 40 mg tablet 40 mg PO BID CHF 30 days #60 tabs 06/30/25 metoprolol succinate 100 mg capsule sprinkle, ext. release 24 hr 100 mg PO DAILY 1 month #30 ea 06/30/25 Hospital Course Summary of Care Provided Hospital Course: Laboratory Results 06/29/25 16:44: POC Glucose 130 H 06/29/25 21:07: POC Glucose 123 H 06/30/25 06:21: WBC 7.1, RBC 3.51 L, Hgb 11.1 L, Hct 33.9 L, MCV 96.6, MCH 31.6, MCHC 32.7, RDW Std Deviation 46.9 H, RDW Coeff of Maribel 13.3, Plt Count 289, MPV 10.5, Sodium 138, Potassium 4.2, Chloride 101, Carbon Dioxide 27.4, Anion Gap 9, BUN 33 H, Creatinine 1.20, Estim Creat Clear Calc 35.12 L, Est GFR (MDRD) Non-Af 44 L, BUN/Creatinine Ratio 27.4 H, Glucose 203 H, Calcium 8.8 06/30/25 08:02: POC Glucose 189 H 06/30/25 11:33: POC Glucose 231 H Physical Exam Narrative Seen and examined. Shortness of breath has resolved. Leg swelling has improved. Currently on room air. Patient was prescribed 2 L of oxygen about a year ago but was not using it. On 5 L of oxygen Physical exam General: Alert, Oriented x3, Cooperative HEENT: Atraumatic, PERRLA, EOMI, Normocephalic. Very hard of hearing bilateral Oral: No Gingival or Mucosal Lesions/ Ulcerations Neck: Supple, No JVD, Negative Carotid Bruits Chest wall/Lungs: Air entry diminished in bilateral lung bases. No crepitation/rhonchi Cardiovascular: Sinus bradycardia, normal S1,S2, No M/G/R Abdomen: Bowel Sounds Present, Soft, Non Tender, Non-Distended : No dysuria. No renal angle tenderness. No suprapubic tenderness. Extremities: 1+ bilateral pedal edema, has improved capillary Refill Less than 3 Seconds Skin: No rashes, No breakdown Musculoskeletal: No Tenderness to Palpation of Joints or Extremities Neurological: Cranial nerves II-XII grossly intact, DTR 2+/4. No acute focal neurological deficit. Psych/Mental Status: Normal Affect, Appropriate. Weight / BMI Weight Weight: 198 lb 10.184 oz Body Mass Index (BMI) 36.3 ABG / Lab / Microbiology Data 06/30/25 06:21 06/30/25 06:21 Laboratory: Laboratory Results - last 24 hr 06/29/25 16:44: POC Glucose 130 H 06/29/25 21:07: POC Glucose 123 H 06/30/25 06:21: WBC 7.1, RBC 3.51 L, Hgb 11.1 L, Hct 33.9 L, MCV 96.6, MCH 31.6, MCHC 32.7, RDW Std Deviation 46.9 H, RDW Coeff of Maribel 13.3, Plt Count 289, MPV 10.5, Sodium 138, Potassium 4.2, Chloride 101, Carbon Dioxide 27.4, Anion Gap 9, BUN 33 H, Creatinine 1.20, Estim Creat Clear Calc 35.12 L, Est GFR (MDRD) Non-Af 44 L, BUN/Creatinine Ratio 27.4 H, Glucose 203 H, Calcium 8.8 06/30/25 08:02: POC Glucose 189 H 06/30/25 11:33: POC Glucose 231 H D/C Instructions DC O2, CPAP, BIPAP Needs Home O2 Discharge instructions: No Meaningful Use Info Meaningful Use Meaningful Use Diagnoses (Choose all that apply): CHF CHF KERLINE/ARB ordered at discharge?: Yes Documented LVEF (%): 70 Discharge Plan Admission Admit Date/Time: 06/27/25 18:09 Attending Provider: Ricardo Stinson Primary Care Provider: Cass Barney Consulting Providers: Efrain Ibrahim; Austin Tijerina Discharge Orders/Prescriptions Prescriptions: New metoprolol succinate 100 mg capsule,sprinkle,ER 24hr 100 mg PO DAILY 30 Days Qty: 30 2RF Continued atorvastatin 40 mg Tablet 40 mg PO DINNER losartan 100 mg Tablet 100 mg PO DAILY Levemir FlexTouch U100 Insulin 100 unit/mL (3 mL) Insulin Pen 45 unit SUBCUT BID Patient Comments: States she takes Lantus metformin 500 mg tablet extended release 24 hr 1,000 mg PO BID albuterol sulfate 90 mcg/actuation HFA aerosol inhaler 2 puff INHALATION Q6H PRN (Reason: SHORTNESS OF BREATH ) potassium chloride 10 mEq capsule, extended release 10 meq PO DAILY Qty: 30 0RF hydralazine 50 mg tablet 50 mg PO TID clonidine HCl 0.1 mg tablet 0.1 mg PO BID Qty: 180 3RF Changed furosemide 40 mg tablet 40 mg PO BID 30 Days Qty: 60 2RF Discontinued metoprolol tartrate 100 mg Tablet 100 mg PO BID hydralazine 25 mg tablet 25 mg PO TID Referrals / Follow Up: Cass Barney DO [Primary Care Provider, Internal Medicine] Prashanth Sethi PA [Med Staff - [facility] Practice Prof, Cardiology] - Within 1 Week Disposition Discharge Orders: Discharge Patient (Routine); Ordered 06/30/25 Ordered By: Dr. Ricardo Stinson Charges/Coding Visit Charges Inpatient E&M: 24989 Disch Hosp >30min
--- NOTE | 2025-06-30 15:07 | CASEMGMT ---
Social Work- SW received notice from nurse that pt and pt son had concerns regarding discharge home. SW met with pt and pt son to discuss. SW introduced self and role; pt and pt son agreeable to meet. Pt reports she is fearful of being alone and a fall occurring while at home alone. Pt indicated that she did not feel comfortable going home at this time. SW educated on HHC vs SNF. Pt and pt son chose SNF and would like [facility]. A list of SNF providers including quality and resource use data and consistent with the patient?s preferred geographic region, medical needs, and insurance network were provided from the [facility] Guide. Pt chose [facility] as FOC. SW completed referral to [facility] and indicated that if accepted, precert can be started. SW also provided pt printables on medical alert. SW provided education on Direction Home; pt would like to see where she is at functionally following SNF stay prior to referral. SW remains available to follow. [place]
--- NOTE | 2025-06-30 15:29 | PCM.PN.HOSP ---
Reason for Visit Chief Complaint: Shortness of breath on exertion Objective Data Objective Data Vital Signs: Vital Signs Temp Pulse Resp BP Pulse Ox O2 Del Method O2 Flow Rate 97.2 F L 61 18 146/55 H 96 Nasal Cannula 2 06/30/25 13:58 06/30/25 13:59 06/30/25 13:58 06/30/25 13:58 06/30/25 13:58 06/30/25 14:00 06/30/25 14:00 Oxygen Flow Rate (L/min) 2 Oxygen Delivery Method Nasal Cannula Weight: 198 lb 10.184 oz Body Mass Index (BMI) 36.3 Intake & Output: Intake and Output for Last 24 Hours 06/28/25 06/29/25 06/30/25 23:59 23:59 23:59 Intake Total 400 / 400 840 / 1040 640 / 640 Output Total 250 / 250 Balance 150 / 150 840 / 1040 640 / 640 Lab / Micro Data 06/30/25 06:21 06/30/25 06:21 Labs: Laboratory Results - last 24 hr 06/29/25 16:44: POC Glucose 130 H 06/29/25 21:07: POC Glucose 123 H 06/30/25 06:21: WBC 7.1, RBC 3.51 L, Hgb 11.1 L, Hct 33.9 L, MCV 96.6, MCH 31.6, MCHC 32.7, RDW Std Deviation 46.9 H, RDW Coeff of Maribel 13.3, Plt Count 289, MPV 10.5, Sodium 138, Potassium 4.2, Chloride 101, Carbon Dioxide 27.4, Anion Gap 9, BUN 33 H, Creatinine 1.20, Estim Creat Clear Calc 35.12 L, Est GFR (MDRD) Non-Af 44 L, BUN/Creatinine Ratio 27.4 H, Glucose 203 H, Calcium 8.8 06/30/25 08:02: POC Glucose 189 H 06/30/25 11:33: POC Glucose 231 H Rhythm Strip Rhythm Strip: Sinus Rhythm Rate: 75 Ectopy: None Physical Exam Narrative Seen and examined. Shortness of breath has resolved. Leg swelling has improved. Currently on room air. Patient was prescribed 2 L of oxygen about a year ago but was not using it. On 5 L of oxygen Physical exam General: Alert, Oriented x3, Cooperative HEENT: Atraumatic, PERRLA, EOMI, Normocephalic. Very hard of hearing bilateral Oral: No Gingival or Mucosal Lesions/ Ulcerations Neck: Supple, No JVD, Negative Carotid Bruits Chest wall/Lungs: Air entry diminished in bilateral lung bases. No crepitation/rhonchi Cardiovascular: Sinus bradycardia, normal S1,S2, No M/G/R Abdomen: Bowel Sounds Present, Soft, Non Tender, Non-Distended : No dysuria. No renal angle tenderness. No suprapubic tenderness. Extremities: 1+ bilateral pedal edema, has improved capillary Refill Less than 3 Seconds Skin: No rashes, No breakdown Musculoskeletal: No Tenderness to Palpation of Joints or Extremities Neurological: Cranial nerves II-XII grossly intact, DTR 2+/4. No acute focal neurological deficit. Psych/Mental Status: Normal Affect, Appropriate. Assessment & Plan Assessment/Plan (1) Acute on chronic heart failure with preserved ejection fraction (HFpEF): PLAN: Plan Patient is an 85-year-old gentleman who presented with progressive shortness of breath. An assessment of acute on chronic congestive heart failure with preserved ejection fraction was made admitted to monitored bed for further management 1. Acute on chronic congestive heart failure with preserved ejection fraction. Patient has been admitted to monitored bed. Echo from June 2024 demonstrated EF of 65% with stage I diastolic dysfunction. Repeat echo ordered. Patient placed on strict input and output, daily weight, fluid restriction as well as furosemide 06/09: Patient is still short of breath worse on mild exertion. Requires 4 to 5 L of oxygen with mild exertion. 2D echo shows EF 70% but moderate pulmonary hypertension, RVSP 56 mmHg. 06/30: Shortness of breath is resolved. Home O2 qualification test ordered. Patient pulse ox 91% on room air. Requires 2 L of oxygen on ambulation. I have reviewed the oxygen testing, and this patient qualifies for the home equipment and portability. The patient is mobile in the home and the community. Advised follow-up in [place] cardiology office. After discussion with the case operatorapartment maintenance manager worker and patient's son it was found that patient does not meet criteria for safety at home and discharged safety. Therefore discharge canceled. Probably patient will need SNF. 2. Acute hypertensive emergency ? Patient presented with markedly elevated blood pressure of systolic 190 with evidence of endorgan dysfunction?CHF. Did continue patient home meds and added hydralazine as needed for systolic blood pressure greater than 160 07/19: Patient blood pressure is controlled fluctuates between 114/54-1 50/46 which is acceptable for her age. She is on losartan, metoprolol succinate, furosemide and hydralazine. 3. Elevated D-dimer probably due to acute phase reactant. 06/29: CTA suggestive of CHF. PE ruled out. Venous duplex also negative for DVT 4. Dyslipidemia ?Patient is on statin therapy, continued at home dose 5. Class II obesity with BMI of 37.0 ? Complicating care weight loss advised 6. Diabetes mellitus type 2 ? Uncontrolled with hyperglycemia. Patient hemoglobin A1c is 8.9. Did continue with patient long-acting insulin in addition to scheduled short acting insulin and was also placed on Accu-Cheks ACHS with sliding scale coverage 06/29: Glucose about 150s. 7. Anemia ? Secondary to chronic disorder monitoring H&H and transfuse if patient becomes symptomatic or hemoglobin falls below 7 H&H 11.5/36.2%. 8. Chronic hypoxic respiratory failure ? Per patient he supposed to be on 2 L continuous however he does not wear oxygen as instructed since it interferes with her activities of daily living 9. CKD stage IIIb: BUN/creatinine 29/1.10. Estimated creatinine clearance 38.3 mL/min. Electrolytes in normal range. DVT prophylaxis ? Subcu Lovenox Discharge medication reconciliation done. Discharge follow-up instructions completed. Discharge process discussed with the patient and all questions were answered to patient's satisfaction. Follow with PCP in 1 to 2 weeks Total time spent, exact 35 minutes on discharge meds reconciliation, examination, coordination of care with nurses and ancillary staff, review of imaging and blood test and discussion with the patient on follow-up instructions. Laboratory Results 06/28/25 17:11: POC Glucose 172 H 06/28/25 21:19: POC Glucose 128 H 06/29/25 04:23: WBC 7.6, RBC 3.57 L, Hgb 11.5 L, Hct 36.2 L, MCV 101.4 H D, MCH 32.2 H, MCHC 31.8 L D, RDW Std Deviation 50.3 H, RDW Coeff of Maribel 13.8, Plt Count 264, MPV 10.4, Sodium 138, Potassium 4.3, Chloride 102, Carbon Dioxide 25.9, Anion Gap 10, BUN 29 H, Creatinine 1.10, Estim Creat Clear Calc 38.31 L, Est GFR (MDRD) Non-Af 49 L, BUN/Creatinine Ratio 26.7 H, Glucose 171 H, Calcium 9.1, Phosphorus 4.9 H, Magnesium 2.1, Triglycerides 110, Cholesterol 99, LDL Cholesterol, Calc 37, VLDL Cholesterol 22, HDL Cholesterol 42, Cholesterol/HDL Ratio 2.39 06/29/25 05:54: POC Glucose 151 H 06/29/25 08:33: POC Glucose 141 H 06/29/25 11:52: POC Glucose 193 H Clinical Impression(s) from Imaging Studies Chest X-Ray 06/27/25 17:30 IMPRESSION: Bilateral lower lobe pneumonia with bilateral effusions. Reading Location: [facility] Echocardiogram 06/27/25 19:17 Interpretation Summary Normal LV size. Moderate concentric left ventricular hypertrophy. The left ventricular ejection fraction is 70 %. Pulmonary artery systolic pressure is 56 mmHg. Moderate pulmonary hypertension. Ordering Physician: Efrain Ibrahim Referring Physician: Cass Barney M.D. Performed By: Татьяна Saenz RCS Venous Doppler Study 06/28/25 11:19 Interpretation Summary Deep veins of the bilateral lower extremities are patent and compressible segmentally. There is no evidence of bilateral lower extremity deep vein thrombosis. The bilateral great saphenous veins appear patent and compressible segmentally. Ordering Physician: Austin Tijerina Referring Physician: Cass Barney M.D. Performed By: Garland Murray RVT Chest CTA 06/28/25 11:20 IMPRESSION: No evidence of pulmonary embolism. Cardiomegaly with interstitial densities and pleural effusions consistent with CHF. Reading Location: [id number] Charges/Coding Visit Charges Inpatient E&M: 62467 Subs Hosp L2
[2025-07-01] VITALS (13 sets, daily range): BP systolic 138–174; BP diastolic 32–52; PULSE 54–75; RESP 16–18; TEMP 36.2–36.9; O2SAT 92–100
[2025-07-01] MEDS: 0.9% Saline Lock 10 ML Syringe IV ×3 (03:31→17:53)
[2025-07-01 04:35] LABS: Hematocrit 31.5 % (37-47); Hemoglobin 10.7 g/dL (12.0-15.0); Mean Corp Hgb Conc 34.0 g/dL (32-36); Mean Corpuscular Volume 96.0 fL (81-99); Mean Platelet Vol. 10.6 fl (6.2-12.0); Platelet Count 265 K/mm3 (150-450); RBC Distribution Width CV 13.3 % (11.6-14.6); RBC Distribution Width SD 46.7 fl (35.1-43.9); Red Blood Count 3.28 M/mm3 (4.2-5.4); White Blood Count 7.1 K/mm3 (4.4-11.0)
[2025-07-01 04:53] LABS: Anion Gap 10 (5-15); BUN 38 mg/dL (4-19); BUN/Creat Ratio 33.5 RATIO (10-20); Calcium,Total 8.8 mg/dL (7.6-11.0); Carbon Dioxide 26.5 mmol/L (21.0-32.0); Chloride 103 mmol/L (98-108); Estimated Creatinine Clearance 37.29 ml/min (50-250); Glucose 133 mg/dL (70-99); Potassium 4.1 mmol/L (3.3-5.1)
--- NOTE | 2025-07-01 13:00 | PN.HOSP_ITS ---
Reason for Visit Chief Complaint: Shortness of breath on exertion Objective Data Objective Data Vital Signs: Vital Signs Temp Pulse Resp BP Pulse Ox O2 Del Method O2 Flow Rate 97.6 F L 54 L 16 149/52 H 100 Nasal Cannula 2 07/01/25 08:28 07/01/25 08:42 07/01/25 08:28 07/01/25 08:28 07/01/25 08:28 07/01/25 09:00 07/01/25 09:00 Oxygen Flow Rate (L/min) 2 Oxygen Delivery Method Nasal Cannula Weight: 198 lb 10.184 oz Body Mass Index (BMI) 36.3 Intake & Output: Intake and Output for Last 24 Hours 06/29/25 06/30/25 07/01/25 23:59 23:59 22:59 Intake Total 840 / 1040 1000 / 1120 240 / 240 Balance 840 / 1040 1000 / 1120 240 / 240 Lab / Micro Data 07/01/25 03:36 07/01/25 03:36 Labs: Laboratory Results - last 24 hr 06/30/25 16:36: POC Glucose 134 H 06/30/25 21:27: POC Glucose 158 H 07/01/25 03:36: WBC 7.1, RBC 3.28 L, Hgb 10.7 L, Hct 31.5 L, MCV 96.0, MCH 32.6 H, MCHC 34.0, RDW Std Deviation 46.7 H, RDW Coeff of Maribel 13.3, Plt Count 265, MPV 10.6, Sodium 139, Potassium 4.1, Chloride 103, Carbon Dioxide 26.5, Anion Gap 10, BUN 38 H, Creatinine 1.13, Estim Creat Clear Calc 37.29 L, Est GFR (MDRD) Non-Af 47 L, BUN/Creatinine Ratio 33.5 H, Glucose 133 H, Calcium 8.8 07/01/25 08:30: POC Glucose 126 H 07/01/25 11:00: POC Glucose 229 H Rhythm Strip Rhythm Strip: Sinus Rhythm Rate: 75 Ectopy: None Physical Exam Narrative Seen and examined. No acute issues or shortness of breath but patient has physical debility/adult failure to thrive and needs SNF. Leg swelling has improved. Currently on room air. Patient was prescribed 2 L of oxygen about a year ago but was not using it. On 2 L of oxygen Physical exam General: Alert, Oriented x3, Cooperative HEENT: Atraumatic, PERRLA, EOMI, Normocephalic. Very hard of hearing bilateral Oral: No Gingival or Mucosal Lesions/ Ulcerations Neck: Supple, No JVD, Negative Carotid Bruits Chest wall/Lungs: Air entry diminished in bilateral lung bases. No crepitation/rhonchi Cardiovascular: Sinus bradycardia, normal S1,S2, No M/G/R Abdomen: Bowel Sounds Present, Soft, Non Tender, Non-Distended : No dysuria. No renal angle tenderness. No suprapubic tenderness. Extremities: 1+ bilateral pedal edema, has improved capillary Refill Less than 3 Seconds Skin: No rashes, No breakdown Musculoskeletal: No Tenderness to Palpation of Joints or Extremities Neurological: Cranial nerves II-XII grossly intact, DTR 2+/4. No acute focal neurological deficit. Psych/Mental Status: Normal Affect, Appropriate. Assessment & Plan Assessment/Plan (1) Acute on chronic heart failure with preserved ejection fraction (HFpEF): PLAN: Plan Patient is an 85-year-old gentleman who presented with progressive shortness of breath. An assessment of acute on chronic congestive heart failure with preserved ejection fraction was made admitted to monitored bed for further management 1. Acute on chronic congestive heart failure with preserved ejection fraction. Patient has been admitted to monitored bed. Echo from June 2024 demonstrated EF of 65% with stage I diastolic dysfunction. Repeat echo ordered. Patient placed on strict input and output, daily weight, fluid restriction as well as furosemide 06/09: Patient is still short of breath worse on mild exertion. Requires 4 to 5 L of oxygen with mild exertion. 2D echo shows EF 70% but moderate pulmonary hypertension, RVSP 56 mmHg. 06/30: Shortness of breath is resolved. Home O2 qualification test ordered. Patient pulse ox 91% on room air. Requires 2 L of oxygen on ambulation. I have reviewed the oxygen testing, and this patient qualifies for the home equipment and portability. The patient is mobile in the home and the community. Advised follow-up in [place] cardiology office. After discussion with the case management managerdriver manager worker and patient's son it was found that patient does not meet criteria for safety at home and discharged safety. Therefore discharge canceled. Probably patient will need SNF. 07/01: After discussion of the case management manager and son, they have decided for SNF as patient has difficulty in walking, dyspnea on exertion and physical debility and poor balance. 2. Acute hypertensive emergency ? Patient presented with markedly elevated blood pressure of systolic 190 with evidence of endorgan dysfunction?CHF. Did continue patient home meds and added hydralazine as needed for systolic blood pressure greater than 160 07/19: Patient blood pressure is controlled fluctuates between 114/54-1 50/46 which is acceptable for her age. She is on losartan, metoprolol succinate, furosemide and hydralazine. 3. Elevated D-dimer probably due to acute phase reactant. 06/29: CTA suggestive of CHF. PE ruled out. Venous duplex also negative for DVT 4. Dyslipidemia ?Patient is on statin therapy, continued at home dose 5. Class II obesity with BMI of 37.0 ? Complicating care weight loss advised 6. Diabetes mellitus type 2 ? Uncontrolled with hyperglycemia. Patient hemoglobin A1c is 8.9. Did continue with patient long-acting insulin in addition to scheduled short acting insulin and was also placed on Accu-Cheks ACHS with sliding scale coverage 06/29: Glucose about 150s. 7. Anemia ? Secondary to chronic disorder monitoring H&H and transfuse if patient becomes symptomatic or hemoglobin falls below 7 H&H 11.5/36.2%. 8. Chronic hypoxic respiratory failure ? Per patient he supposed to be on 2 L continuous however he does not wear oxygen as instructed since it interferes with her activities of daily living 9. CKD stage IIIb: BUN/creatinine 29/1.10. Estimated creatinine clearance 38.3 mL/min. Electrolytes in normal range. DVT prophylaxis ? Subcu Lovenox Discharge medication reconciliation done. Discharge follow-up instructions completed. Discharge process discussed with the patient and all questions were answered to patient's satisfaction. Follow with PCP in 1 to 2 weeks Total time spent, exact 35 minutes on discharge meds reconciliation, examination, coordination of care with nurses and ancillary staff, review of imaging and blood test and discussion with the patient on follow-up instructions. Clinical Impression(s) from Imaging Studies Chest X-Ray 06/27/25 17:30 IMPRESSION: Bilateral lower lobe pneumonia with bilateral effusions. Reading Location: [id number] Echocardiogram 06/27/25 19:17 Interpretation Summary Normal LV size. Moderate concentric left ventricular hypertrophy. The left ventricular ejection fraction is 70 %. Pulmonary artery systolic pressure is 56 mmHg. Moderate pulmonary hypertension. Ordering Physician: Efrain Ibrahim Referring Physician: Cass Barney M.D. Performed By: Татьяна Saenz RCS Venous Doppler Study 06/28/25 11:19 Interpretation Summary Deep veins of the bilateral lower extremities are patent and compressible segmentally. There is no evidence of bilateral lower extremity deep vein thrombosis. The bilateral great saphenous veins appear patent and compressible segmentally. Ordering Physician: Austin Tijerina Referring Physician: Cass Barney M.D. Performed By: Garland Murray RVT Chest CTA 06/28/25 11:20 IMPRESSION: No evidence of pulmonary embolism. Cardiomegaly with interstitial densities and pleural effusions consistent with CHF. Reading Location: [id number] Charges/Coding Visit Charges Inpatient E&M: 28611 Subs Hosp L2
[2025-07-01] MEDS: Insulin Glargine-YFGN 100 UNIT/ML Pen 25 UNIT SC (21:51)
[2025-07-02] VITALS (15 sets, daily range): BP systolic 125–174; BP diastolic 37–85; PULSE 54–66; RESP 18; TEMP 36.2–36.9; O2SAT 92–97; BMI 36.2; BMI 35.8
[2025-07-02] MEDS: 0.9% Saline Lock 10 ML Syringe IV (05:09)
--- NOTE | 2025-07-02 07:31 | PN.HOSP_ITS ---
Reason for Visit Chief Complaint: Shortness of breath on exertion Subjective Subjective Patient is an 85-year-old lady who presented with progressive shortness of breath. An assessment of acute on chronic congestive heart failure with preserved ejection fraction was made admitted to monitored bed for further management Objective Data Objective Data Vital Signs: Vital Signs Temp Pulse Resp BP Pulse Ox O2 Del Method O2 Flow Rate 98.2 F 56 L 18 153/42 H 97 Nasal Cannula 2 07/02/25 05:08 07/02/25 05:09 07/02/25 05:08 07/02/25 05:08 07/02/25 05:08 07/02/25 05:08 07/02/25 05:08 Oxygen Flow Rate (L/min) 2 Oxygen Delivery Method Nasal Cannula Weight: 88.9 kg Body Mass Index (BMI) 35.8 Intake & Output: Intake and Output for Last 24 Hours 06/30/25 07/01/25 07/02/25 23:59 22:59 23:59 Intake Total 1000 / 1120 660 / 900 480 / 480 Balance 1000 / 1120 660 / 900 480 / 480 Lab / Micro Data 07/01/25 03:36 07/01/25 03:36 Labs: Laboratory Results - last 24 hr 07/01/25 08:30: POC Glucose 126 H 07/01/25 11:00: POC Glucose 229 H 07/01/25 16:46: POC Glucose 253 H 07/01/25 21:49: POC Glucose 176 H Rhythm Strip Rhythm Strip: Sinus Rhythm Rate: 75 Ectopy: None Physical Exam Narrative GENERAL: cooperative HEENT: Atraumatic; normocephalic EYES; Anicteric, Normal Conjunctiva NECK; supple, normal thyroid, RESPIRATORY: Diminished to auscultation CARDIOVASCULAR: Regular S1 S2, GI: soft, normoactive bowel sounds, : No Renal angle tenderness; EXTREMITIES: trace edema, no clubbing, MUSCULOSKELETAL: no muscle wasting NEURO: Awake; no lateralizing signs. SKIN: No Rash PSYCH; Flat affect Assessment & Plan Assessment/Plan (1) Acute on chronic heart failure with preserved ejection fraction (HFpEF): PLAN: Plan Patient is an 85-year-old lady who presented with progressive shortness of breath. An assessment of acute on chronic congestive heart failure with preserved ejection fraction was made admitted to monitored bed for further management 1. Acute on chronic congestive heart failure with preserved ejection fraction. Patient has been admitted to monitored bed. Echo from June 2024 demonstrated EF of 65% with stage I diastolic dysfunction. Repeat echo ordered. Patient placed on strict input and output, daily weight, fluid restriction as well as furosemide ? 07/02/2025; patient has responded to diuretic therapy. 2D echo obtained during current admission on 06/27/2025 demonstrated Moderate concentric left ventricular hypertrophy. The left ventricular ejection fraction is 70 %. Pulmonary artery systolic pressure is 56 mmHg. Moderate pulmonary hypertension. 2. Acute hypertensive emergency ? Patient presented with markedly elevated blood pressure of systolic 190 with evidence of endorgan dysfunction?CHF. Did continue patient home meds and added hydralazine as needed for systolic blood pressure greater than 160 ? 07/02/2025; acute hypertensive emergency resolved 3. Elevated D-dimer ? Ordered CTA as well as bilateral venous duplex to rule out VTE 4. Dyslipidemia ?Patient is on statin therapy, continued at home dose 5. Class II obesity with BMI of 37.0 ? Complicating care weight loss advised 6. Diabetes mellitus type 2 ? Uncontrolled with hyperglycemia. Patient hemoglobin A1c is 8.9. Did continue with patient long-acting insulin in addition to scheduled short acting insulin and was also placed on Accu-Cheks ACHS with sliding scale coverage 7. Anemia ? Secondary to chronic disorder monitoring H&H and transfuse if patient becomes symptomatic or hemoglobin falls below 7 8. Chronic hypoxic respiratory failure ? Per patient he supposed to be on 2 L continuous however he does not wear oxygen as instructed since it interferes with her activities of daily living 9. Physical deconditioning ? Requested for PT OT eval and social sciences department chair to assist with discharge planning 10. DVT prophylaxis ? Subcu Lovenox Time spent in the patient's overall evaluation,decision-making process, review of diagnostic data, adjustment of management, discussion with other providers, nursing nursing and ancillary staff involved in patient's care documentation, 38 Minutes Charges/Coding Visit Charges Inpatient E&M: 41620 Subs Hosp L2
[2025-07-02] MEDS: Insulin Glargine-YFGN 100 UNIT/ML Pen 25 UNIT SC (08:51)
--- NOTE | 2025-07-02 09:10 | CASEMGMT ---
[facility]charge [facility]. Per [facility], referral has not been viewed yet. Referral remains pending. Lindy Lee DC Planning Asst.
--- NOTE | 2025-07-02 11:08 | CASEMGMT ---
Discharge Planning [facility] has accepted and will submit for precert. Lindy Lee DC Planning Asst
--- NOTE | 2025-07-02 11:28 | CASEMGMT ---
Social Work POLA spoke with the patient and informed her [facility] accepted her. SW informed her that insurance needs to approved it and [facility] has sent for approval. Patient reported she will let her son know. POAL informed her insurance may not approve it and a possibility might DC home with [facility]
--- NOTE | 2025-07-02 11:51 | CASEMGMT ---
Social Work SW spoke with the patient and she requested a SNF referral be sent to [facility]. SW reached out to TCU but they have no availability. SW notified the patient that TCU if full and not accepted her. Patient reported she is okay with DC to [facility]. SW informed the patient again that insurance needs to approve her going to [facility]. [facility] Branch
[2025-07-03] VITALS (13 sets, daily range): BP systolic 144–176; BP diastolic 37–61; PULSE 52–64; RESP 18; TEMP 36.3–36.8; O2SAT 92–99; BMI 36.3
--- NOTE | 2025-07-03 07:44 | PCM.PN.HOSP ---
Reason for Visit Chief Complaint: Shortness of breath on exertion Subjective Subjective Patient seen, awaiting transfer to detention facility pending insurance precertification and bed availability Objective Data Objective Data Vital Signs: Vital Signs Temp Pulse Resp BP Pulse Ox O2 Del Method O2 Flow Rate 98.0 F 63 18 174/61 H 94 Nasal Cannula 2 07/03/25 05:34 07/03/25 05:34 07/03/25 05:34 07/03/25 05:34 07/03/25 05:34 07/03/25 05:34 07/03/25 05:34 Oxygen Flow Rate (L/min) 2 Oxygen Delivery Method Nasal Cannula Weight: 90.3 kg Body Mass Index (BMI) 36.3 Intake & Output: Intake and Output for Last 24 Hours 07/01/25 07/02/25 07/03/25 22:59 23:59 23:59 Intake Total 660 / 900 480 / 480 Balance 660 / 900 480 / 480 Lab / Micro Data 07/01/25 03:36 07/01/25 03:36 Labs: Laboratory Results - last 24 hr 07/02/25 07:37: POC Glucose 185 H 07/02/25 11:17: POC Glucose 203 H 07/02/25 16:09: POC Glucose 197 H 07/02/25 22:21: POC Glucose 127 H Rhythm Strip Rhythm Strip: Sinus Rhythm Rate: 75 Ectopy: None Physical Exam Narrative GENERAL: cooperative HEENT: Atraumatic; normocephalic EYES; Anicteric, Normal Conjunctiva NECK; supple, normal thyroid, RESPIRATORY: Diminished to auscultation CARDIOVASCULAR: Regular S1 S2, GI: soft, normoactive bowel sounds, : No Renal angle tenderness; EXTREMITIES: trace edema, no clubbing, MUSCULOSKELETAL: no muscle wasting NEURO: Awake; no lateralizing signs. SKIN: No Rash PSYCH; Flat affect Assessment & Plan Assessment/Plan (1) Acute on chronic heart failure with preserved ejection fraction (HFpEF): PLAN: Plan Patient is an 85-year-old lady who presented with progressive shortness of breath. An assessment of acute on chronic congestive heart failure with preserved ejection fraction was made admitted to monitored bed for further management 1. Acute on chronic congestive heart failure with preserved ejection fraction. Patient has been admitted to monitored bed. Echo from June 2024 demonstrated EF of 65% with stage I diastolic dysfunction. Repeat echo ordered. Patient placed on strict input and output, daily weight, fluid restriction as well as furosemide ? 07/02/2025; patient has responded to diuretic therapy. 2D echo obtained during current admission on 06/27/2025 demonstrated Moderate concentric left ventricular hypertrophy. The left ventricular ejection fraction is 70 %. Pulmonary artery systolic pressure is 56 mmHg. Moderate pulmonary hypertension. 2. Acute hypertensive emergency ? Patient presented with markedly elevated blood pressure of systolic 190 with evidence of endorgan dysfunction?CHF. Did continue patient home meds and added hydralazine as needed for systolic blood pressure greater than 160 ? 07/02/2025; acute hypertensive emergency resolved 3. Elevated D-dimer ? Ordered CTA as well as bilateral venous duplex to rule out VTE 4. Dyslipidemia ?Patient is on statin therapy, continued at home dose 5. Class II obesity with BMI of 37.0 ? Complicating care weight loss advised 6. Diabetes mellitus type 2 ? Uncontrolled with hyperglycemia. Patient hemoglobin A1c is 8.9. Did continue with patient long-acting insulin in addition to scheduled short acting insulin and was also placed on Accu-Cheks ACHS with sliding scale coverage 7. Anemia ? Secondary to chronic disorder monitoring H&H and transfuse if patient becomes symptomatic or hemoglobin falls below 7 8. Chronic hypoxic respiratory failure ? Per patient he supposed to be on 2 L continuous however he does not wear oxygen as instructed since it interferes with her activities of daily living 9. Physical deconditioning ? Requested for PT OT eval and hospital social worker to assist with discharge planning ? 07/03/2025 awaiting transfer to detention facility pending insurance precertification and bed availability 10. DVT prophylaxis ? Subcu Lovenox Time spent in the patient's overall evaluation,decision-making process, review of diagnostic data, adjustment of management, discussion with other providers, nursing nursing and ancillary staff involved in patient's care documentation, 35 Minutes Charges/Coding Visit Charges Inpatient E&M: 27205 Subs Hosp L2
[2025-07-03 09:38] LABS: Hematocrit 37.2 % (37-47); Hemoglobin 12.2 g/dL (12.0-15.0); Immature Granulocytes Count 0.040 X10^3/uL (0.0-0.0); Mean Corp Hgb Conc 32.8 g/dL (32-36); Mean Corpuscular Volume 97.1 fL (81-99); Mean Platelet Vol. 10.3 fl (6.2-12.0); NRBC Flagged by Analyzer 0 % (0-5); Platelet Count 285 K/mm3 (150-450); RBC Distribution Width CV 13.4 % (11.6-14.6); RBC Distribution Width SD 47.6 fl (35.1-43.9); Red Blood Count 3.83 M/mm3 (4.2-5.4); White Blood Count 6.7 K/mm3 (4.4-11.0)
[2025-07-03] MEDS: Insulin Glargine-YFGN 100 UNIT/ML Pen 25 UNIT SC ×2 (09:38→22:59)
[2025-07-03 10:40] LABS: Anion Gap 11 (5-15); BUN 36 mg/dL (4-19); BUN/Creat Ratio 38.2 RATIO (10-20); Calcium,Total 9.7 mg/dL (7.6-11.0); Carbon Dioxide 28.1 mmol/L (21.0-32.0); Chloride 103 mmol/L (98-108); Estimated Creatinine Clearance 45.37 ml/min (50-250); Glucose 194 mg/dL (70-99); Magnesium 2.4 mg/dL (1.5-2.2); Potassium 4.1 mmol/L (3.3-5.1)
[2025-07-04] VITALS (11 sets, daily range): BP systolic 138–177; BP diastolic 37–58; PULSE 54–62; RESP 16–18; TEMP 36.5–37.1; O2SAT 94–100; BMI 36.0
[2025-07-04 05:03] LABS: Hematocrit 34.2 % (37-47); Hemoglobin 11.2 g/dL (12.0-15.0); Immature Granulocytes Count 0.050 X10^3/uL (0.0-0.0); Mean Corp Hgb Conc 32.7 g/dL (32-36); Mean Corpuscular Volume 97.7 fL (81-99); Mean Platelet Vol. 11.1 fl (6.2-12.0); NRBC Flagged by Analyzer 0 % (0-5); Platelet Count 264 K/mm3 (150-450); RBC Distribution Width CV 13.2 % (11.6-14.6); RBC Distribution Width SD 47.4 fl (35.1-43.9); Red Blood Count 3.50 M/mm3 (4.2-5.4); White Blood Count 7.1 K/mm3 (4.4-11.0)
[2025-07-04] MEDS: 0.9% Saline Lock 10 ML Syringe IV (05:27)
[2025-07-04 05:35] LABS: Anion Gap 11 (5-15); BUN 34 mg/dL (4-19); BUN/Creat Ratio 31.5 RATIO (10-20); Calcium,Total 9.2 mg/dL (7.6-11.0); Carbon Dioxide 26.8 mmol/L (21.0-32.0); Chloride 101 mmol/L (98-108); Estimated Creatinine Clearance 38.71 ml/min (50-250); Glucose 194 mg/dL (70-99); Potassium 4.1 mmol/L (3.3-5.1)
--- NOTE | 2025-07-04 07:58 | PCM.PN.HOSP ---
Reason for Visit Chief Complaint: Shortness of breath on exertion Subjective Subjective Patient seen blood pressure control not optimal. Adjusted patient antihypertensives. Still waiting for insurance precertification prior to transfer to intermediate facility Objective Data Objective Data Vital Signs: Vital Signs Temp Pulse Resp BP Pulse Ox O2 Del Method O2 Flow Rate 97.8 F 62 18 145/58 H 94 Nasal Cannula 2 07/04/25 04:30 07/04/25 05:27 07/04/25 04:30 07/04/25 04:30 07/04/25 04:30 07/04/25 04:30 07/04/25 04:30 Oxygen Flow Rate (L/min) 2 Oxygen Delivery Method Nasal Cannula Weight: 89.4 kg Body Mass Index (BMI) 36.0 Intake & Output: Intake and Output for Last 24 Hours 07/02/25 07/03/25 07/04/25 23:59 23:59 23:59 Intake Total 480 / 480 480 / 480 Balance 480 / 480 480 / 480 Lab / Micro Data 07/04/25 03:52 07/04/25 03:52 Labs: Laboratory Results - last 24 hr 07/03/25 08:12: POC Glucose 173 H 07/03/25 09:06: WBC 6.7, RBC 3.83 L, Hgb 12.2, Hct 37.2, MCV 97.1, MCH 31.9, MCHC 32.8, RDW Std Deviation 47.6 H, RDW Coeff of Maribel 13.4, Plt Count 285, MPV 10.3, Immature Gran % (Auto) 0.600, Neut % (Auto) 63.0, Lymph % (Auto) 15.9 L, [place] % (Auto) 16.1 H, Eos % (Auto) 3.7, Baso % (Auto) 0.7, Absolute Neuts (auto) 4.2, Absolute Lymphs (auto) 1.07, Nucleated RBC % 0, Sodium 142, Potassium 4.1, Chloride 103, Carbon Dioxide 28.1, Anion Gap 11, BUN 36 H, Creatinine 0.93, Estim Creat Clear Calc 45.37 L, Est GFR (MDRD) Non-Af 60, BUN/Creatinine Ratio 38.2 H, Glucose 194 H, Calcium 9.7, Phosphorus 3.7, Magnesium 2.4 H 07/03/25 11:25: POC Glucose 308 H 07/03/25 16:15: POC Glucose 222 H 07/03/25 22:57: POC Glucose 207 H 07/04/25 03:52: WBC 7.1, RBC 3.50 L, Hgb 11.2 L, Hct 34.2 L, MCV 97.7, MCH 32.0, MCHC 32.7, RDW Std Deviation 47.4 H, RDW Coeff of Maribel 13.2, Plt Count 264, MPV 11.1, Immature Gran % (Auto) 0.700, Neut % (Auto) 54.1, Lymph % (Auto) 20.8, [place] % (Auto) 19.6 H, Eos % (Auto) 4.1, Baso % (Auto) 0.7, Absolute Neuts (auto) 3.9, Absolute Lymphs (auto) 1.48, Nucleated RBC % 0, Sodium 139, Potassium 4.1, Chloride 101, Carbon Dioxide 26.8, Anion Gap 11, BUN 34 H, Creatinine 1.09, Estim Creat Clear Calc 38.71 L, Est GFR (MDRD) Non-Af 49 L, BUN/Creatinine Ratio 31.5 H, Glucose 194 H, Calcium 9.2 Rhythm Strip Rhythm Strip: Sinus Rhythm Rate: 75 Ectopy: None Physical Exam Narrative GENERAL: cooperative HEENT: Atraumatic; normocephalic EYES; Anicteric, Normal Conjunctiva NECK; supple, normal thyroid, RESPIRATORY: Diminished to auscultation CARDIOVASCULAR: Regular S1 S2, GI: soft, normoactive bowel sounds, : No Renal angle tenderness; EXTREMITIES: trace edema, no clubbing, MUSCULOSKELETAL: no muscle wasting NEURO: Awake; no lateralizing signs. SKIN: No Rash PSYCH; Flat affect Assessment & Plan Assessment/Plan (1) Acute on chronic heart failure with preserved ejection fraction (HFpEF): PLAN: Plan Patient is an 85-year-old lady who presented with progressive shortness of breath. An assessment of acute on chronic congestive heart failure with preserved ejection fraction was made admitted to monitored bed for further management 1. Acute on chronic congestive heart failure with preserved ejection fraction. Patient has been admitted to monitored bed. Echo from June 2024 demonstrated EF of 65% with stage I diastolic dysfunction. Repeat echo ordered. Patient placed on strict input and output, daily weight, fluid restriction as well as furosemide ? 07/02/2025; patient has responded to diuretic therapy. 2D echo obtained during current admission on 06/27/2025 demonstrated Moderate concentric left ventricular hypertrophy. The left ventricular ejection fraction is 70 %. Pulmonary artery systolic pressure is 56 mmHg. Moderate pulmonary hypertension. 2. Acute hypertensive emergency ? Patient presented with markedly elevated blood pressure of systolic 190 with evidence of endorgan dysfunction?CHF. Did continue patient home meds and added hydralazine as needed for systolic blood pressure greater than 160 ? 07/02/2025; acute hypertensive emergency resolved ? 07/04/2025; patient blood pressure control not optimal subsequent adjustment made to her antihypertensive regimen. Added amlodipine 5 mg daily 3. Elevated D-dimer ? Ordered CTA as well as bilateral venous duplex to rule out VTE 4. Dyslipidemia ?Patient is on statin therapy, continued at home dose 5. Class II obesity with BMI of 37.0 ? Complicating care weight loss advised 6. Diabetes mellitus type 2 ? Uncontrolled with hyperglycemia. Patient hemoglobin A1c is 8.9. Did continue with patient long-acting insulin in addition to scheduled short acting insulin and was also placed on Accu-Cheks ACHS with sliding scale coverage 7. Anemia ? Secondary to chronic disorder monitoring H&H and transfuse if patient becomes symptomatic or hemoglobin falls below 7 8. Chronic hypoxic respiratory failure ? Per patient he supposed to be on 2 L continuous however he does not wear oxygen as instructed since it interferes with her activities of daily living 9. Physical deconditioning ? Requested for PT OT eval and social services aide to assist with discharge planning ? 07/03/2025 awaiting transfer to intermediate facility pending insurance precertification and bed availability 10. DVT prophylaxis ? Subcu Lovenox Time spent in the patient's overall evaluation,decision-making process, review of diagnostic data, adjustment of management, discussion with other providers, nursing nursing and ancillary staff involved in patient's care documentation, 35 Minutes Charges/Coding Visit Charges Inpatient E&M: 75615 Subs Hosp L2
--- NOTE | 2025-07-04 08:27 | CASEMGMT ---
Discharge Planning Updates sent via [facility] to [facility]. Lindy Lee DC Planning Asst.
[2025-07-04] MEDS: Insulin Glargine-YFGN 100 UNIT/ML Pen 25 UNIT SC ×2 (11:56→21:24)
[2025-07-05] VITALS (12 sets, daily range): BP systolic 143–163; BP diastolic 36–53; PULSE 54–61; RESP 14–18; TEMP 35.8–36.7; O2SAT 95–97; BMI 35.7
--- NOTE | 2025-07-05 09:21 | PN.HOSP_ITS ---
Reason for Visit Chief Complaint: Shortness of breath on exertion Subjective Subjective Patient seen no change in condition patient blood pressure continues to remain elevated subsequent adjustment made to her antihypertensive regimen Objective Data Objective Data Vital Signs: Vital Signs Temp Pulse Resp BP Pulse Ox O2 Del Method O2 Flow Rate 97.8 F 61 14 153/53 H 96 Nasal Cannula 2 07/05/25 08:09 07/05/25 08:09 07/05/25 08:09 07/05/25 08:09 07/05/25 08:09 07/05/25 08:12 07/05/25 08:12 Oxygen Flow Rate (L/min) 2 Oxygen Delivery Method Nasal Cannula Weight: 88.6 kg Body Mass Index (BMI) 35.7 Intake & Output: Intake and Output for Last 24 Hours 07/03/25 07/04/25 07/05/25 23:59 23:59 23:59 Intake Total 480 / 480 Balance 480 / 480 Lab / Micro Data 07/04/25 03:52 07/04/25 03:52 Labs: Laboratory Results - last 24 hr 07/04/25 11:49: POC Glucose 279 H 07/04/25 17:13: POC Glucose 163 H 07/04/25 21:22: POC Glucose 156 H Rhythm Strip Rhythm Strip: Sinus Rhythm Rate: 75 Ectopy: None Physical Exam Narrative GENERAL: cooperative HEENT: Atraumatic; normocephalic EYES; Anicteric, Normal Conjunctiva NECK; supple, normal thyroid, RESPIRATORY: Diminished to auscultation CARDIOVASCULAR: Regular S1 S2, GI: soft, normoactive bowel sounds, : No Renal angle tenderness; EXTREMITIES: trace edema, no clubbing, MUSCULOSKELETAL: no muscle wasting NEURO: Awake; no lateralizing signs. SKIN: No Rash PSYCH; Flat affect Assessment & Plan Assessment/Plan (1) Acute on chronic heart failure with preserved ejection fraction (HFpEF): PLAN: Plan Patient is an 85-year-old lady who presented with progressive shortness of breath. An assessment of acute on chronic congestive heart failure with preserved ejection fraction was made admitted to monitored bed for further management 1. Acute on chronic congestive heart failure with preserved ejection fraction. Patient has been admitted to monitored bed. Echo from June 2024 demonstrated EF of 65% with stage I diastolic dysfunction. Repeat echo ordered. Patient placed on strict input and output, daily weight, fluid restriction as well as furosemide ? 07/02/2025; patient has responded to diuretic therapy. 2D echo obtained during current admission on 06/27/2025 demonstrated Moderate concentric left ventricular hypertrophy. The left ventricular ejection fraction is 70 %. Pulmonary artery systolic pressure is 56 mmHg. Moderate pulmonary hypertension. 2. Acute hypertensive emergency ? Patient presented with markedly elevated blood pressure of systolic 190 with evidence of endorgan dysfunction?CHF. Did continue patient home meds and added hydralazine as needed for systolic blood pressure greater than 160 ? 07/02/2025; acute hypertensive emergency resolved ? 07/04/2025; patient blood pressure control not optimal subsequent adjustment made to her antihypertensive regimen. Added amlodipine 5 mg daily ? 07/05/2025; 3. Elevated D-dimer ? Ordered CTA as well as bilateral venous duplex to rule out VTE 4. Dyslipidemia ?Patient is on statin therapy, continued at home dose 5. Class II obesity with BMI of 37.0 ? Complicating care weight loss advised 6. Diabetes mellitus type 2 ? Uncontrolled with hyperglycemia. Patient hemoglobin A1c is 8.9. Did continue with patient long-acting insulin in addition to scheduled short acting insulin and was also placed on Accu-Cheks ACHS with sliding scale coverage 7. Anemia ? Secondary to chronic disorder monitoring H&H and transfuse if patient becomes symptomatic or hemoglobin falls below 7 8. Chronic hypoxic respiratory failure ? Per patient he supposed to be on 2 L continuous however he does not wear oxygen as instructed since it interferes with her activities of daily living 9. Physical deconditioning ? Requested for PT OT eval and vp digital marketing social media and crm to assist with discharge planning ? 07/03/2025 awaiting [facility] to [facility] facility pending insurance precertification and bed availability 10. DVT prophylaxis ? Subcu Lovenox Time spent in the patient's overall evaluation,decision-making process, review of diagnostic data, adjustment of management, discussion with other providers, nursing nursing and ancillary staff involved in patient's care documentation, 35 Minutes Charges/Coding Visit Charges Inpatient E&M: 65170 Subs Hosp L2
[2025-07-05] MEDS: Insulin Glargine-YFGN 100 UNIT/ML Pen 25 UNIT SC ×2 (09:46→22:10)
--- NOTE | 2025-07-05 14:37 | CASEMGMT ---
Social Work Determination of acceptance still pending with insurance. POLA met with pt and explained this. SW also discussed alternate discharge plan with pt. SW explained that it is possible pt is doing too well to qualify for SNF. Pt states she lives at home alone and will need some additional time at [facility] for continued therapy prior to return home alone. SW discussed options of home with home health or private pay at SNF. Pt refuses to pay for SNF out of pocket. Pt states that she does not like home health and people in and out of her home. SW again reiterated that if insurance denies SNF, pt will need an alternate dc plan. Pt states that she does not want to depend on her son and dgt in law so her and therefore the only alternate is to return home alone. POLA again explained home health and requested pt make decision on alternate dc plan in the event pt is denied by insurance. Pt to follow. Plan: [facility], pending [place]
--- NOTE | 2025-07-05 14:43 | CASEMGMT ---
Discharge Planning Requested clinicals sent via [facility] to [facility]. Precert remains pending. Lindy Lee DC Planning Asst
[2025-07-06] VITALS (16 sets, daily range): BP systolic 112–153; BP diastolic 30–49; PULSE 52–65; RESP 18; TEMP 36.2–36.5; O2SAT 87–98; BMI 35.7
[2025-07-06 04:44] LABS: Hematocrit 31.7 % (37-47); Hemoglobin 10.9 g/dL (12.0-15.0); Immature Granulocytes Count 0.040 X10^3/uL (0.0-0.0); Mean Corp Hgb Conc 34.4 g/dL (32-36); Mean Corpuscular Volume 94.6 fL (81-99); Mean Platelet Vol. 10.6 fl (6.2-12.0); NRBC Flagged by Analyzer 0 % (0-5); Platelet Count 225 K/mm3 (150-450); RBC Distribution Width CV 13.0 % (11.6-14.6); RBC Distribution Width SD 45.3 fl (35.1-43.9); Red Blood Count 3.35 M/mm3 (4.2-5.4); White Blood Count 6.4 K/mm3 (4.4-11.0)
[2025-07-06 05:04] LABS: Anion Gap 10 (5-15); BUN 43 mg/dL (4-19); BUN/Creat Ratio 35.2 RATIO (10-20); Calcium,Total 9.1 mg/dL (7.6-11.0); Carbon Dioxide 28.3 mmol/L (21.0-32.0); Chloride 100 mmol/L (98-108); Estimated Creatinine Clearance 34.23 ml/min (50-250); Glucose 153 mg/dL (70-99); Magnesium 2.3 mg/dL (1.5-2.2); Potassium 4.0 mmol/L (3.3-5.1)
[2025-07-06] MEDS: Insulin Glargine-YFGN 100 UNIT/ML Pen 25 UNIT SC (08:47)
--- NOTE | 2025-07-06 08:57 | CASEMGMT ---
Discharge Planning A list of?HH?providers including quality and resource use data and consistent with the patient's preferred geographic region, medical needs, and insurance network was created in [facility] Guide.? This list was provided to the POLA Lee Discharge Planning Asst.
--- NOTE | 2025-07-06 09:47 | CASEMGMT ---
Social Work A list of?HH providers including quality and resource use data and consistent with the patient's preferred geographic region, medical needs, and insurance network was created in [facility] Guide.? This list was provided to the patient. Patient chose [facility] if she DC home. VICTORIANO Hunter
--- NOTE | 2025-07-06 12:15 | PN_ITS ---
Subjective Subjective Patient seen and examined with her nurse by bedside. She had no active complaints. She is on 2 L of oxygen. She is awaiting placement. Review of systems otherwise negative. She has been using the incentive spirometer but has not been doing so well with it. Patient encouraged to continue to use a 10-12 times every hour. Review of systems otherwise negative. Objective Data Objective Data Vital Signs: Vital Signs Temp Pulse Resp BP Pulse Ox O2 Del Method O2 Flow Rate 97.6 F L 52 L 18 112/30 L 93 Nasal Cannula 2 07/06/25 08:23 07/06/25 10:55 07/06/25 10:55 07/06/25 10:55 07/06/25 10:59 07/06/25 10:59 07/06/25 10:59 Oxygen Flow Rate (L/min) 2 Oxygen Delivery Method Nasal Cannula Weight: 195 lb 5.273 oz Body Mass Index (BMI) 35.7 Lab / Micro Data 07/06/25 04:21 07/06/25 04:21 Labs: Laboratory Results - last 24 hr 07/05/25 16:50: POC Glucose 212 H 07/05/25 22:06: POC Glucose 160 H 07/06/25 04:21: WBC 6.4, RBC 3.35 L, Hgb 10.9 L, Hct 31.7 L, MCV 94.6, MCH 32.5 H, MCHC 34.4 D, RDW Std Deviation 45.3 H, RDW Coeff of Maribel 13.0, Plt Count 225, MPV 10.6, Immature Gran % (Auto) 0.600, Neut % (Auto) 58.0, Lymph % (Auto) 19.7, [place] % (Auto) 16.5 H, Eos % (Auto) 4.3, Baso % (Auto) 0.9, Absolute Neuts (auto) 3.7, Absolute Lymphs (auto) 1.25, Nucleated RBC % 0, Sodium 138, Potassium 4.0, Chloride 100, Carbon Dioxide 28.3, Anion Gap 10, BUN 43 H, Creatinine 1.22 H, E stim Creat Clear Calc 34.23 L, Est GFR (MDRD) Non-Af 43 L, BUN/Creatinine Ratio 35.2 H, Glucose 153 H, Calcium 9.1, Phosphorus 4.5, Magnesium 2.3 H 07/06/25 11:19: POC Glucose 197 H Rhythm Strip Rhythm Strip: Sinus Rhythm Rate: 75 Ectopy: None Physical Exam Const alert, oriented x3 and no apparent distress Constitutional Narrative: Class II obesity General Appearance: cooperative HEENT normocephalic, head/scalp atraumatic, moist oral mucous membranes and oropharynx normal Eyes EOMs intact bilaterally Neck supple and no JVD Lymph Lymphatic: no lymphedema noted Resp Resp Narrative: mildly diminished breath sounds bibasally, very few crackles bibasally, no wheezes. On 2L of oxygen by nasal canula Cardio regular rate, regular rhythm, S1 normal heart sound, S2 normal heart sound and no murmurs GI normal to inspection, nondistended, normoactive bowel sounds, soft to palpation, non-tender and non-distended Extremity no clubbing, cyanosis or edema General Extremity: no tenderness to palpation of joints or extremities Neuro no focal motor deficits and no sensory deficits noted Motor Exam: general weakness Psych thought process normal and cooperative Appearance: appropriate Assessment & Plan Assessment/Plan (1) Acute on chronic heart failure with preserved ejection fraction (HFpEF): (2) Bilateral pleural effusion: PLAN: Plan #Acute exacerbation of heart failure preserved ejection fraction * Has known EF of 65% per echo from June 2024. 2D echo from 06/27/2025 showed moderate concentric left ventricular hypertrophy with EF of 70% and pulmonary artery systolic pressure of 56 mmHg indicating moderate pulmonary hypertension * Been diuresed with Lasix. Monitor intake and output. Fluid restriction 1500 cc daily. Titrate oxygen to maintain saturation above 90%. * Will switch Lasix to p.o. * #Chronic respiratory failure: * Likely due to pulmonary hypertension and heart failure. * Apparently patient says she is supposed to be on 2 L of oxygen at home but has not been wearing it. * She is currently on 2 L. Titrate oxygen to maintain saturation above 90%. * #Hypertension * Was admitted with hypertensive emergency with systolic blood pressure of around 190 mmHg and evidence of endorgan dysfunction. * Continue overnight BP meds. Amlodipine 5 mg daily added. Hypertensive emergency has resolved. #Elevated D-dimer: * CTA and bilateral duplex negative for any evidence of venous thromboembolism #Hyperlipidemia: On statin #Class II obesity: BMI is 35.7 today. Complicates acute care, expected recovery and prognosis #Type 2 diabetes mellitus: A1c is 8.9. On Lantus. Insulin sliding scale. Checks ACHS. #Anemia: Monitor hemoglobin and transfuse if Hb is less than 7. Hb is 10/9 #Debility and weakness * PT/OT on board. Fall precautions. Awaiting placement * * DVT prophylaxis: lovenox Code status: full code Disposition: awaiting placement. Charges/Coding Visit Charges Inpatient E&M: 46194 Subs Hosp L2
--- NOTE | 2025-07-06 13:22 | CASEMGMT ---
Social Work SW called the son Ha. SW informed him that the insurance has not made a decision yet if they are going to approve his mother to [place] to [facility]. POLA discussed with Ha if his mother is denied the patient could get a referral for at [place]. SW offered to provide the patient with a list of private caregivers. The son reported he is coming to the hospital and will discuss this with his mother. VICTORIANO Branch
--- NOTE | 2025-07-06 13:50 | CASEMGMT ---
Addendum entered by Carmella Delaney 07/06/25 15:30: SW also explained to the patient that [facility] said that the hospital can do a P2P by calling ; but it will not change today's decision. Original Note: Social Work SW spoke with the patient. SW explained the insurance company denied her going [facility]. Patient would like [facility] [place]. SW gave her a list of private caregivers. Patient reported she does not want to use her own money. SW called the son Ha and informed him that the insurance denied the DC to SNF. SW informed the patient and Ha that patient will DC today. Patient will need a walk test before DC. VICTORIANO Branch
--- NOTE | 2025-07-06 15:13 | CASEMGMT ---
Social Work POLA spoke with the patient and informed her that [facility] will start services on Wednesday. POLA informed the patient that oxygen is being set up for her to DC home with. POLA called the son Ha and he reported he will transport his mother home. The son and the patient are aware they can appeal the denial to SNF with the insurance company. VICTORIANO Branch
--- NOTE | 2025-07-06 15:16 | CASEMGMT ---
LUIS YANG updated that patient will need updated home oxygen order. [place] [facility] [facility] LUIS YANG provided portable tank from [employer].
--- NOTE | 2025-07-06 16:36 | DCINST_ITS ---
Discharge Instructions DC O2, CPAP, BIPAP needs Home O2 Discharge instructions: Yes Type of respiratory needs?: Oxygen Oxygen frequency: Continuous Continuous oxygen liters per minute: 2 Dressing / Incision Discharge Activity: Return to Normal Activity Weight Bearing Status: Weight bearing as tolerated Dressing / Incision Call your doctor if you observe: Fever of 101 or Higher, Shortness of breath, Di zziness, Swelling in the ankles and Chest pain Follow Up Care Test Results: Test results from this visit will be discussed in further detail at your follow- up appointment, if applicable. Discharge Plan Admission Admit Date/Time: 06/27/25 18:09 Primary Reason for Your Visit: acute CHF exacerbation Attending Provider: Areli Pacheco Primary Care Provider: Cass Barney Consulting Providers: Efrain Ibrahim; Austin Tijerina; Ricardo Stinson Instructions Patient Instructions: Coping with Heart Failure Discharge Orders/Prescriptions Prescriptions: New metoprolol succinate 100 mg capsule,sprinkle,ER 24hr 100 mg PO DAILY 30 Days Qty: 30 2RF amlodipine 10 mg Tablet 10 mg PO DAILY Qty: 30 2RF Continued atorvastatin 40 mg Tablet 40 mg PO DINNER losartan 100 mg Tablet 100 mg PO DAILY Levemir FlexTouch U100 Insulin 100 unit/mL (3 mL) Insulin Pen 45 unit SUBCUT BID Patient Comments: States she takes Lantus metformin 500 mg tablet extended release 24 hr 1,000 mg PO BID albuterol sulfate 90 mcg/actuation HFA aerosol inhaler 2 puff INHALATION Q6H PRN (Reason: SHORTNESS OF BREATH ) potassium chloride 10 mEq capsule, extended release 10 meq PO DAILY Qty: 30 0RF hydralazine 50 mg tablet 50 mg PO TID clonidine HCl 0.1 mg tablet 0.1 mg PO BID Qty: 180 3RF Changed furosemide 40 mg tablet 40 mg PO BID 30 Days Qty: 60 2RF Discontinued metoprolol tartrate 100 mg Tablet 100 mg PO BID hydralazine 25 mg tablet 25 mg PO TID Referrals / Follow Up: Cass Barney DO [Primary Care Provider, Internal Medicine] Prashanth Sethi PA [Med Staff - [facility] Practice Prof, Cardiology] - Within 1 Week Disposition Disposition (needs filled in before D/C Order can be placed): Home Health Service
--- NOTE | 2025-07-06 16:38 | DS.PCM_ITS ---
Providers Date of Admission: 06/27/25 Date of Discharge: 07/06/25 Primary Care Physician: Dr. Cass Barney DO Reason For Visit: CHF EXACERBATION Diagnosis Discharge Diagnosis (1) Acute on chronic heart failure with preserved ejection fraction (HFpEF): Status: Acute Code(s): I50.33 - Acute on chronic diastolic (congestive) heart failure (2) Bilateral pleural effusion: Status: Acute Code(s): J90 - Pleural effusion, not elsewhere classified Plan #Acute exacerbation of heart failure preserved ejection fraction * Has known EF of 65% per echo from June 2024. 2D echo from 06/27/2025 showed moderate concentric left ventricular hypertrophy with EF of 70% and pulmonary artery systolic pressure of 56 mmHg indicating moderate pulmonary hypertension * Been diuresed with Lasix. Monitor intake and output. Fluid restriction 1500 cc daily. Titrate oxygen to maintain saturation above 90%. * Will switch Lasix to p.o. * #Chronic respiratory failure: * Likely due to pulmonary hypertension and heart failure. * Apparently patient says she is supposed to be on 2 L of oxygen at home but has not been wearing it. * She is currently on 2 L. Titrate oxygen to maintain saturation above 90%. * #Hypertension * Was admitted with hypertensive emergency with systolic blood pressure of around 190 mmHg and evidence of endorgan dysfunction. * Continue overnight BP meds. Amlodipine 5 mg daily added. Hypertensive emergency has resolved. #Elevated D-dimer: * CTA and bilateral duplex negative for any evidence of venous thromboembolism #Hyperlipidemia: On statin #Class II obesity: BMI is 35.7 today. Complicates acute care, expected recovery and prognosis #Type 2 diabetes mellitus: A1c is 8.9. On Lantus. Insulin sliding scale. Checks ACHS. #Anemia: Monitor hemoglobin and transfuse if Hb is less than 7. Hb is 10/9 #Debility and weakness * PT/OT on board. Fall precautions. Awaiting placement * * DVT prophylaxis: lovenox Code status: full code Disposition: awaiting placement. Medications at Discharge Home Medications atorvastatin 40 mg tablet 40 mg PO DINNER CHOLESTEROL 06/23/21 insulin detemir U-100 100 unit/mL (3 mL) subcutaneous pen (Levemir FlexTouch U- 100 Insulin) 45 unit subcut BID DIABETES 06/23/21 losartan 100 mg tablet 100 mg PO DAILY BLODOD PRESSURE 06/23/21 albuterol sulfate 90 mcg/actuation aerosol inhaler 2 puff inhalation Q6H PRN SHORTNESS OF BREATH 08/17/23 metformin 500 mg tablet,extended release 24 hr 1,000 mg PO BID DIABETES 08/17/23 potassium chloride 10 mEq capsule,extended release 10 meq PO DAILY #30 caps 08/21/23 clonidine HCl 0.1 mg tablet 0.1 mg PO BID #180 tabs 01/12/25 hydralazine 50 mg tablet 50 mg PO TID blood pressure 06/27/25 furosemide 40 mg tablet 40 mg PO BID CHF 30 days #60 tabs 06/30/25 metoprolol succinate 100 mg capsule sprinkle, ext. release 24 hr 100 mg PO DAILY 1 month #30 ea 06/30/25 amlodipine 10 mg tablet 10 mg PO DAILY #30 tabs 07/06/25 Hospital Course Operations None Procedures 2-D Echocardiogram Summary of Care Provided Minutes Spent on Discharge: 42 Hospital Course: Patient is an 85-year-old female with past medical history as outlined was admitted through the ED on 06/27/2025 with complaint of worsening shortness of breath with exertion. She was also noted to be hypertensive and required 3 L of oxygen at rest to maintain appropriate saturation. Chest x-ray showed vascular congestion with small bilateral pleural effusions and BNP was 610. However clinically she was thought to have CHF exacerbation so she was not admitted for acute CHF exacerbation. She was placed on diuresis with IV Lasix. She had 2D echo done which showed moderate concentric left ventricular hypertrophy with EF of 70% and pulmonary artery systolic pressure 56 mmHg indicating moderate pulmonary hypertension which was likely contributing to the shortness of breath. Her blood pressure symptoms improved and she did better. Amlodipine was also added on to her medication. It turned out that patient was actually supposed be wearing 2 L of oxygen at home but had not been wearing it. She did require 2 L throughout the rest of her admission. Patient was initially waiting to go to custodial facility but this was denied by her insurance company. She was therefore amenable to going home with home health care. She was discharged with home health care on 07/06/2025. She is to follow-up with her primary care doctor within 1 to 2 weeks. Home health care was to establish care with patient at home on 07/09/2025. Patient seen and examined prior to discharge. She had no active complaints. She denied any shortness of breath, palpitations, dizziness, nausea or vomiting. Review of systems otherwise negative. Labs and vitals reviewed. Home medication reviewed and reconciled. Physical Exam Const alert, oriented x3 and no apparent distress Constitutional Narrative: Class II obesity General Appearance: cooperative and comfortable Exam Limitations: no limitations HEENT normocephalic, head/scalp atraumatic, hearing grossly normal bilaterally, nasal mucous membranes and turbinates normal, moist oral mucous membranes and oropharynx normal Mouth: oral and palatal mucosa normal Eyes PERRL, EOMs intact bilaterally and conjunctivae normal Neck full ROM, supple and no JVD Lymph Lymphatic: no lymphedema noted Chest inspection of chest normal Resp Resp Narrative: mildly diminished breath sounds bibasally, very few crackles bibasally, no wheezes. On 2L of oxygen by nasal canula Cardio regular rate, regular rhythm, S1 normal heart sound, S2 normal heart sound, no murmurs and peripheral pulses 2+ throughout GI normal to inspection, nondistended, normoactive bowel sounds, soft to palpation, non-tender and non-distended Back/Spine normal ROM Extremity no clubbing, cyanosis or edema General Extremity: no tenderness to palpation of joints or extremities Skin no rashes or lesions noted Neuro oriented x3, moves all extremities, no focal motor deficits and no sensory deficits noted Sensorium / Orientation: awake and alert Motor Exam: strength 5/5 throughout Psych mental status grossly normal, thought process normal and cooperative Appearance: appropriate Weight / BMI Weight Weight: 195 lb 5.273 oz Body Mass Index (BMI) 35.7 ABG / Lab / Microbiology Data 07/06/25 04:21 07/06/25 04:21 Laboratory: Laboratory Results - last 24 hr 07/05/25 16:50: POC Glucose 212 H 07/05/25 22:06: POC Glucose 160 H 07/06/25 04:21: WBC 6.4, RBC 3.35 L, Hgb 10.9 L, Hct 31.7 L, MCV 94.6, MCH 32.5 H, MCHC 34.4 D, RDW Std Deviation 45.3 H, RDW Coeff of Maribel 13.0, Plt Count 225, MPV 10.6, Immature Gran % (Auto) 0.600, Neut % (Auto) 58.0, Lymph % (Auto) 19.7, [place] % (Auto) 16.5 H, Eos % (Auto) 4.3, Baso % (Auto) 0.9, Absolute Neuts (auto) 3.7, Absolute Lymphs (auto) 1.25, Nucleated RBC % 0, Sodium 138, Potassium 4.0, Chloride 100, Carbon Dioxide 28.3, Anion Gap 10, BUN 43 H, Creatinine 1.22 H, E stim Creat Clear Calc 34.23 L, Est GFR (MDRD) Non-Af 43 L, BUN/Creatinine Ratio 35.2 H, Glucose 153 H, Calcium 9.1, Phosphorus 4.5, Magnesium 2.3 H 07/06/25 11:19: POC Glucose 197 H D/C Instructions Discharge Activity: Return to Normal Activity Weight Bearing Status: Weight bearing as tolerated Call your doctor if you observe: Fever of 101 or Higher, Shortness of breath, Dizziness, Swelling in the ankles and Chest pain DC O2, CPAP, BIPAP Needs Home O2 Discharge instructions: Yes Type of respiratory needs?: Oxygen Oxygen frequency: Continuous Continuous oxygen liters per minute: 2 DC home with Oxygen: Yes Home O2 MD Review: I have reviewed the oxygen testing, and the patient qualifies for home oxygen equipment and portability. The patient is mobile in the home and the community. Meaningful Use Info Meaningful Use Meaningful Use Diagnoses (Choose all that apply): CHF CHF KERLINE/ARB ordered at discharge?: Yes Documented LVEF (%): 70 Discharge Plan Admission Admit Date/Time: 06/27/25 18:09 Primary Reason for Your Visit: acute CHF exacerbation Attending Provider: Areli Pacheco Primary Care Provider: Cass Barney Consulting Providers: Efrain Ibrahim; Austin Tijerina; Ricardo Stinson Instructions Patient Instructions: Coping with Heart Failure Discharge Orders/Prescriptions Prescriptions: New metoprolol succinate 100 mg capsule,sprinkle,ER 24hr 100 mg PO DAILY 30 Days Qty: 30 2RF amlodipine 10 mg Tablet 10 mg PO DAILY Qty: 30 2RF Continued atorvastatin 40 mg Tablet 40 mg PO DINNER losartan 100 mg Tablet 100 mg PO DAILY Levemir FlexTouch U100 Insulin 100 unit/mL (3 mL) Insulin Pen 45 unit SUBCUT BID Patient Comments: States she takes Lantus metformin 500 mg tablet extended release 24 hr 1,000 mg PO BID albuterol sulfate 90 mcg/actuation HFA aerosol inhaler 2 puff INHALATION Q6H PRN (Reason: SHORTNESS OF BREATH ) potassium chloride 10 mEq capsule, extended release 10 meq PO DAILY Qty: 30 0RF hydralazine 50 mg tablet 50 mg PO TID clonidine HCl 0.1 mg tablet 0.1 mg PO BID Qty: 180 3RF Changed furosemide 40 mg tablet 40 mg PO BID 30 Days Qty: 60 2RF Discontinued metoprolol tartrate 100 mg Tablet 100 mg PO BID hydralazine 25 mg tablet 25 mg PO TID Referrals / Follow Up: Cass Barney DO [Primary Care Provider, Internal Medicine] Parshanth Sethi PA [Med Staff - [facility] Prof, Cardiology] - Within 1 Week Disposition Disposition (needs filled in before D/C Order can be placed): Home Health Service Charges/Coding Visit Charges Inpatient E&M: 82437 Disch Hosp >30min
== END 2025-07-06 18:07 | disposition home health service (06) | DRG 291 ==
LOC: ED 18:00 → PCU 19:04
PROVIDERS: Internal Medicine; Admitting Provider Hospitalist; Emergency Provider Emergency Medicine; PCP Internal Medicine; Visit Provider Student in an Organized Health Care Education/Training Program
DX: I13.0 Hypertensive heart and chronic kidney disease with heart failure and stage 1 through stage 4 chronic kidney disease, or unspecified chronic kidney disease (principal); I50.33 Acute on chronic diastolic (congestive) heart failure; J90 Pleural effusion, not elsewhere classified; I16.1 Hypertensive emergency; J96.11 Chronic respiratory failure with hypoxia; D63.8 Anemia in other chronic diseases classified elsewhere; N18.32 Chronic kidney disease, stage 3b; E11.65 Type 2 diabetes mellitus with hyperglycemia; E66.812 Obesity, class 2; E11.22 Type 2 diabetes mellitus with diabetic chronic kidney disease; Z79.4 Long term (current) use of insulin; E78.5 Hyperlipidemia, unspecified; Z68.37 Body mass index [BMI] 37.0-37.9, adult; Z90.710 Acquired absence of both cervix and uterus; Z79.84 Long term (current) use of oral hypoglycemic drugs; Z79.51 Long term (current) use of inhaled steroids; Z79.899 Other long term (current) drug therapy; Z86.73 Personal history of transient ischemic attack (TIA), and cerebral infarction without residual deficits
CPT/HCPCS: 36415; 71046; 71275; 80048; 80061; 82962; 83036; 83735; 83880; 84100; 84484; 85025; 85027; 85379; 93005; 93306; 93970; 94640; 94668; 97116; 97162; 97166; 97530; 97535; 97802; 97803; 99285; Q9967; A4216; J1938